=== PATIENT | male | born 2000 | race Caucasian/White ===

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

== ENCOUNTER 2019-02-01 12:04 | Emergency (ER) | payer SELFPAY ==
[2019-02-01 12:52] LABS: Absolute Lymphocytes (CBC) 1.4 K/uL (0.7-4.9); Absolute Monocytes 0.7 K/uL (0.1-1.3); Basophils % 0.1 % (0-1.3); Eosinophils % 0.4 % (0-4.4); Hematocrit 46.2 % (39.6-49.0); Lymphocytes % 11.5 % (15.3-44.8); MPV 8.4 fL (7.6-11.3); Monocytes % 5.8 % (3.3-12.3); RBC Red Blood Cell Count 5.55 M/uL (4.33-5.43)
[2019-02-01] MEDS ORDERED: NA CHLORIDE 0.9% 1,000 ML ONE (12:58)
[2019-02-01] MEDS ORDERED: ONDANSETRON 4 MG/2 ML VIAL ONE ×2 (12:58→14:00)
--- NOTE | 2019-02-01 13:10 | RAD REPORT ---
EXAM DESCRIPTION: RAD - Chest Single View - 02/01/2019 1:03 pm CLINICAL HISTORY: Chest pain COMPARISON: September 2018 TECHNIQUE: AP portable chest image was obtained 1244 hours . FINDINGS: Lungs are clear. Heart and vasculature are normal. No measurable pleural effusion and no p neumothorax. No acute bony abnormality seen. No acute aortic findings suspected. IMPRESSION: No acute cardiopulmonary process. No significant interval change.
[2019-02-01 13:17] LABS: ALT/SGPT 31 U/L (12-78); AST/SGOT 22 U/L (15-37); Albumin 4.5 g/dL (3.4-5.0); Alkaline Phosphatase 77 U/L (45-117); BUN Blood Urea Nitrogen 13 mg/dL (7-18); Bicarbonate 25 mmol/L (21-32); Bilirubin Direct 0.1 mg/dL (0-0.2); Bilirubin Total 0.4 mg/dL (0.2-1.0); Glucose Level 135 mg/dL (74-106); Lipase 167 U/L (73-393); Magnesium 1.9 mg/dL (1.8-2.4); NT PRO-BNP 22 pg/mL (<125); Potassium 3.6 mmol/L (3.5-5.1); Protein, Total 8.5 g/dL (6.4-8.2); Sodium Level 139 mmol/L (136-145); Troponin (Emerg Dept Use Only) < 0.02 ng/mL (0.0-0.045)
[2019-02-01] MEDS ORDERED: MORPHINE 4 MG/ML SYR ONE (13:53)
--- NOTE | 2019-02-01 15:04 | ER ---
Nurse's Notes [facility] Name: Nacho Lopez Age: 18 yrs Sex: Male : 2000 Arrival Date: 02/01/2019 Time: 12:05 Bed 23 Private MD: Diagnosis: Vomiting, unspecified;Upper abdominal pain, unspecified Presentation: 02/01 12:16 Presenting complaint: Patient states: this started happening years ago with everything tw2 i am going through, i am having chest pains that started this morning, i woke up and was having chest pains, i waited to see if they were going to pass, it hurts right in the center of my chest, i have been sweating really badly, i have been going through a lot lately, they try to say its gerd but i dont feel acid, i have been vomiting this time, i havent been eating and am nauseous. Transition of care: patient was not received from another setting of care. Onset of symptoms was February 01, 2019. Risk Assessment: Do you want to hurt yourself or someone else? Patient reports no desire to harm self or others. Initial Sepsis Screen: Does the patient meet any 2 criteria? No. Patient's initial sepsis screen is negative. Does the patient have a suspected source of infection? No. Patient's initial sepsis screen is negative. Care prior to arrival: None. 12:16 Method Of Arrival: Ambulatory tw2 12:16 Acuity: KLAUS 2 tw2 Triage Assessment: 12:18 General: Appears uncomfortable, Behavior is cooperative. Pain: Complains of pain in tw2 chest. Neuro: Cardiovascular: Cardiovascular: pt diaphoretic and pale in triage. GI: Reports nausea, vomiting. Historical: - Allergies: 12:20 NKA; tw2 - Home Meds: 12:20 None [Active]; tw2 - PMHx: 12:20 GERD; tw2 - PSHx: 12:20 None; tw2 - Immunization history:: Adult Immunizations. - Social history:: Smoking status: Patient uses tobacco products, "maybe 5 cigarettes a day". - Ebola Screening: : Patient denies travel to an Ebola-affected area in the 21 days before illness onset. Screenin:24 Abuse screen: Denies threats or abuse. Nutritional screening: No deficits noted. tw2 Tuberculosis screening: No symptoms or risk factors identified. Fall Risk None identified. Assessment: 12:31 General: Appears uncomfortable, Behavior is calm, cooperative, Denies fever, feeling ss ill, fatigue, chills. Pain: Complains of pain in mid-sternal area Pain currently is 9 out of 10 on a pain scale. Quality of pain is described as sharp, stabbing, Pain began "THIS MORNING" Pt reports however that symptoms have been ongoing for 3 years and has not followed up with GI as directed from previous ER visits. Is intermittent, Aggravated by eating. Neuro: Level of Consciousness is awake, alert, obeys commands, Oriented to person, place, time, situation, Speech is normal, Facial symmetry appears normal. Cardiovascular: Capillary refill < 3 seconds is brisk in bilateral fingers Patient's skin is warm and dry. Respiratory: Airway is patent Trachea midline Respiratory effort is even, unlabored, Respiratory pattern is regular, symmetrical, Denies cough, shortness of breath pain with respiration, pain with cough, pain with movement. GI: Reports nausea, vomiting, Patient currently denies constipation, diarrhea. GI: Abdomen is non-distended, Bowel sounds present X 4 quads. Abd is soft X 4 quads. : No signs and/or symptoms were reported regarding the genitourinary system. Denies burning with urination. EENT: Nares are clear Oral mucosa is moist. Throat. Derm: Skin is intact, is healthy with good turgor, Skin is dry, Skin is pink, warm \\T\\ dry. normal. Musculoskeletal: Circulation, motion, and sensation intact. Range of motion: intact in all extremities, Swelling absent. Vital Signs: 12:19 BP 158 / 102; Pulse 57; Resp 18; Temp 97.5(O); Pulse Ox 100% on R/A; Weight 129.27 kg tw2 (R); Height 6 ft. 3 in. (190.50 cm); Pain 10/10; 13:44 BP 157 / 104; Pulse 58; Resp 18; Pulse Ox 100% ; rv 14:00 BP 144 / 84; Pulse 60; Resp 24; Pulse Ox 100% ; rv 14:00 Temp 97.9(O); Pain 8/10; rv 15:30 BP 130 / 85; Pulse 59; Resp 15; Temp 98; Pulse Ox 100% ; rv 12:19 Body Mass Index 35.62 (129.27 kg, 190.50 cm) tw2 ED Course: 12:05 Patient arrived in ED. rg4 12:18 Triage completed. tw2 12:19 Arm band placed on. EKG completed in triage. Results shown to MD. tw2 12:24 Bed in low position. Call light in reach. security monitor on. Warm blanket given. tw2 12:28 [facility]C [facility] kb 12:28 Augustine Zarate MD is Attending Physician. kb 12:31 Elizabeth Minor, MICKY is Primary Nurse. ss 12:31 Inserted saline lock: 20 gauge in right antecubital area, using aseptic technique. ss Blood collected. Patient maintains SpO2 saturation greater than 95% on room air. 12:38 EKG done, by technology manager. reviewed by Augustine Zarate MD. at1 13:03 XRAY Chest (1 view) In Process Unspecified. EDMS 15:31 No provider procedures requiring assistance completed. IV discontinued, intact, rv bleeding controlled, No redness/swelling at site. Pressure dressing applied. Administered Medications: 12:49 Drug: NS 0.9% 1000 ml Route: IV; Rate: 1000 ml; Site: right antecubital; ss 15:31 Follow up: IV Status: Completed infusion; IV Intake: 1000ml rv 12:49 Drug: Zofran 4 mg Route: IVP; Site: right antecubital; ss 15:31 Follow up: Response: No adverse reaction rv 13:45 Drug: morphine 4 mg Route: IVP; Site: right antecubital; rv 15:30 Follow up: Response: No adverse reaction rv Intake: 15:31 IV: 1000ml; Total: 1000ml. rv Outcome: 15:03 Discharge ordered by . kb 15:32 Discharged to home ambulatory. rv 15:32 Condition: good 15:32 Discharge instructions given to patient, Instructed on discharge instructions, follow up and referral plans. medication usage, Demonstrated understanding of instructions, follow-up care, medications, Prescriptions given X 3. 15:32 Patient left the ED. rv Signatures: Dispatcher [employer] EDMS Theresa Gu FNP-C FNP-Elizabeth [place], MICKY RN ss Shivani Jones, bulk tank driver EKG Tat1 Ekaterina Light RN RN tw2 Gwendolyn Valdovinos rg4 Ray Fay, RN RN rv
--- NOTE | 2019-02-01 15:05 | EDPHYS ---
Physician Documentation [facility] Name: Nacho Lopez Age: 18 yrs Sex: Male : 2000 Arrival Date: 02/01/2019 Time: 12:05 Bed 23 Private MD: ED Physician Augustine Zarate HPI: 02/01 15:30 This 18 yrs old Male presents to ER via Ambulatory with complaints of kb Vomiting, Chest Pain, Shortness Of Breath. 15:30 The patient presents to the emergency department with nausea, vomiting. kb 16:08 Onset: The symptoms/episode began/occurred this morning. Possible causes: unknown. The kb symptoms are aggravated by nothing. The symptoms are alleviated by nothing. Associated signs and symptoms: Pertinent positives: abdominal pain, diarrhea, hematuria, vomiting. Severity of symptoms: At their worst the symptoms were moderate in the emergency department the symptoms are unchanged. The patient has experienced similar episodes in the past, multiple times. The patient has not recently seen a physician. Pt reports he has had n/v and upper abd pain that started this morning. States he has had this pain intermittently for 3 years. Historical: - Allergies: 12:20 NKA; tw2 - Home Meds: 12:20 None [Active]; tw2 - PMHx: 12:20 GERD; tw2 - PSHx: 12:20 None; tw2 - Immunization history:: Adult Immunizations. - Social history:: Smoking status: Patient uses tobacco products, "maybe 5 cigarettes a day". - Ebola Screening: : Patient denies travel to an Ebola-affected area in the 21 days before illness onset. ROS: 16:09 Constitutional: Negative for fever, chills, and weight loss, Neck: Negative for injury, kb pain, and swelling, Cardiovascular: Negative for chest pain, palpitations, and edema, Respiratory: Negative for shortness of breath, cough, wheezing, and pleuritic chest pain, Back: Negative for injury and pain, : Negative for injury, bleeding, discharge, and swelling, MS/Extremity: Negative for injury and deformity, Skin: Negative for injury, rash, and discoloration, Neuro: Negative for headache, weakness, numbness, tingling, and seizure. 16:09 Abdomen/GI: Positive for abdominal pain, nausea and vomiting. Exam: 16:09 Constitutional: This is a well developed, well nourished patient who is awake, alert, kb and in no acute distress. Head/Face: Normocephalic, atraumatic. Chest/axilla: Normal chest wall appearance and motion. Nontender with no deformity. No lesions are appreciated. Cardiovascular: Regular rate and rhythm with a normal S1 and S2. No gallops, murmurs, or rubs. Normal PMI, no JVD. No pulse deficits. Respiratory: Lungs have equal breath sounds bilaterally, clear to auscultation and percussion. No rales, rhonchi or wheezes noted. No increased work of breathing, no retractions or nasal flaring. Abdomen/GI: Soft, non-tender, with normal bowel sounds. No distension or tympany. No guarding or rebound. No evidence of tenderness throughout. Skin: Warm, dry with normal turgor. Normal color with no rashes, no lesions, and no evidence of cellulitis. MS/ Extremity: Pulses equal, no cyanosis. Neurovascular intact. Full, normal range of motion. Neuro: Awake and alert, GCS 15, oriented to person, place, time, and situation. Cranial nerves II-XII grossly intact. Motor strength 5/5 in all extremities. Sensory grossly intact. Cerebellar exam normal. Normal gait. Vital Signs: 12:19 BP 158 / 102; Pulse 57; Resp 18; Temp 97.5(O); Pulse Ox 100% on R/A; Weight 129.27 kg tw2 (R); Height 6 ft. 3 in. (190.50 cm); Pain 10/10; 13:44 BP 157 / 104; Pulse 58; Resp 18; Pulse Ox 100% ; rv 14:00 BP 144 / 84; Pulse 60; Resp 24; Pulse Ox 100% ; rv 14:00 Temp 97.9(O); Pain 8/10; rv 15:30 BP 130 / 85; Pulse 59; Resp 15; Temp 98; Pulse Ox 100% ; rv 12:19 Body Mass Index 35.62 (129.27 kg, 190.50 cm) tw2 MDM: 12:28 Patient medically screened. kb 15:02 Data reviewed: vital signs, nurses notes. Data interpreted: Pulse oximetry: on room air kb is 100 %. Interpretation: normal. Counseling: I had a detailed discussion with the patient and/or guardian regarding: the historical points, exam findings, and any diagnostic results supporting the discharge/admit diagnosis, lab results, the need for outpatient follow up, a family practitioner, to return to the emergency department if symptoms worsen or persist or if there are any questions or concerns that arise at home. 02/01 12:34 Order name: Basic Metabolic Panel; Complete Time: 13:18 kb 02/01 12:34 Order name: CBC with Diff; Complete Time: 13:04 kb 02/01 12:34 Order name: LFT's; Complete Time: 13:18 kb 02/01 12:34 Order name: Magnesium; Complete Time: 13:18 kb 02/01 12:34 Order name: NT PRO-BNP; Complete Time: 13:18 kb 02/01 12:34 Order name: Troponin (emerg Dept Use Only); Complete Time: 13:18 kb 02/01 12:34 Order name: XRAY Chest (1 view); Complete Time: 13:13 kb 02/01 12:34 Order name: EKG; Complete Time: 12:36 kb 02/01 12:34 Order name: Cardiac monitoring; Complete Time: 12:35 kb 02/01 12:34 Order name: EKG - Nurse/Tech; Complete Time: 12:35 kb 02/01 12:34 Order name: Lipase; Complete Time: 13:18 kb 02/01 12:34 Order name: IV Saline Lock; Complete Time: 12:35 kb 02/01 12:34 Order name: Labs collected and sent; Complete Time: 12:35 kb 02/01 12:34 Order name: O2 Per Protocol; Complete Time: 12:35 kb 02/01 12:34 Order name: O2 Sat Monitoring; Complete Time: 12:36 kb Administered Medications: 12:49 Drug: NS 0.9% 1000 ml Route: IV; Rate: 1000 ml; Site: right antecubital; ss 15:31 Follow up: IV Status: Completed infusion; IV Intake: 1000ml rv 12:49 Drug: Zofran 4 mg Route: IVP; Site: right antecubital; ss 15:31 Follow up: Response: No adverse reaction rv 13:45 Drug: morphine 4 mg Route: IVP; Site: right antecubital; rv 15:30 Follow up: Response: No adverse reaction rv Disposition: 02/02 09:14 Co-signature as Attending Physician, Augustine Zarate MD I agree with the assessment and kdr plan of care. Disposition: 02/01/19 15:03 Discharged to Home. Impression: Vomiting, unspecified, Upper abdominal pain, unspecified. - Condition is Stable. - Discharge Instructions: Gastroesophageal Reflux Disease, Adult, Nausea and Vomiting, Adult, [id number], Abdominal Pain, Adult, [id number]. - Prescriptions for Bentyl 20 mg Oral Tablet - take 1 tablet by ORAL route every 6 hours As needed; 20 tablet. Zofran 4 mg Oral Tablet - take 1 tablet by ORAL route every 6 hours As needed; 20 tablet. Pepcid 20 mg Oral Tablet - take 1 tablet by ORAL route once daily; 20 tablet. - Medication Reconciliation Form, Thank You Letter, Antibiotic Education, Prescription Opioid Use, Work release form form. - Follow up: Emergency Department; When: As needed; Reason: Worsening of condition. Follow up: Private Physician; When: 2 - 3 days; Reason: Recheck today's complaints, Continuance of care, Re-evaluation by your physician. Signatures: Dispatcher [employer] EDMS Theresa Gu, AUDITOR IN CHARGE-C AUDITOR IN CHARGE-CkAugustine Tucker MD MD [facility] Elizabeth Minor RN RN ss Ekaterina Light RN RN tw2 Ray Fay, RN RN rv Corrections: (The following items were deleted from the chart) 02/01 15:32 15:03 02/01/2019 15:03 Discharged to Home. Impression: Vomiting, unspecified; Upper rv abdominal pain, unspecified. Condition is Stable. Forms are Medication Reconciliation Form, Thank You Letter, Antibiotic Education, Prescription Opioid Use. Follow up: Emergency Department; When: As needed; Reason: Worsening of condition. Follow up: Private Physician; When: 2 - 3 days; Reason: Recheck today's complaints, Continuance of care, Re-evaluation by your physician. kb
--- NOTE | 2019-02-01 16:30 | EKG ---
Test Date: 2019-02-01 Test Time: 12:19:00 Assembly Line Machine Operator: MIGDALIA MEASUREMENT RESULTS: Intervals: Rate: 59 ME: 176 QRSD: 96 QT: 424 QTc: 419 [place]: P: 77 ME: 176 QRS: 45 T: 7 INTERPRETIVE STATEMENTS: Sinus bradycardia Otherwise normal ECG Compared to ECG 09/27/2018 12:35:58 Sinus rhythm no longer present Sinus arrhythmia no longer present T-wave abnormality no longer present Possible ischemia no longer present Electronically Signed On 02-01-19 16:29:19 CDT by Jeremiah Villalba
== END 2019-02-01 15:32 | disposition home or self-care (01) ==
LOC: ER 12:04
DX: R10.10 Upper abdominal pain, unspecified (principal); Z72.0 Tobacco use
CPT/HCPCS: 36415; 71045; 80048; 80076; 83690; 83735; 83880; 84484; 85025; 93005; 96361; 96374; 96375; 99285; J2405; J7030

== ENCOUNTER 2019-06-07 16:14 | Emergency (ER) | payer SELFPAY ==
[2019-06-07] MEDS ORDERED: IBUPROFEN 400 MG TAB ONE (17:16)
[2019-06-07] MEDS ORDERED: MAGNE/ALUM HYDROXD 30 ML UCUP ONE (17:16)
[2019-06-07] MEDS ORDERED: IBUPROFEN 200 MG TAB PO ONE (17:16)
[2019-06-07] MEDS ORDERED: LIDOCAINE VISCOUS 2% SOLN 15 ML UDC ONE (17:17)
[2019-06-07] MEDS ORDERED: TRAMADOL HCL 50 MG TAB ONE (19:04)
--- NOTE | 2019-06-07 20:15 | ER ---
Nurse's Notes [facility] Name: Nacho Lopez Age: 18 yrs Sex: Male : 2000 Arrival Date: 06/07/2019 Time: 16:15 Bed 6 Private MD: Diagnosis: Acute tonsillitis Presentation: 06/07 16:31 Presenting complaint: Patient states: sore throat, chills, body aches that began 2 days aa5 ago. Pt reports vomiting twice today. Pt also c/o chest pain. Pt reports hx of chest pain for 2 years and he takes Nitro. Reports taking Nitro today at 1600. 16:31 Transition of care: patient was not received from another setting of care. Onset of aa5 symptoms was May 2019. Risk Assessment: Do you want to hurt yourself or someone else? Patient reports no desire to harm self or others. Care prior to arrival: None. 16:31 Acuity: KLAUS 3 aa5 16:31 Method Of Arrival: Ambulatory aa5 19:20 Initial Sepsis Screen: Does the patient meet any 2 criteria? No. Patient's initial aj1 sepsis screen is negative. Does the patient have a suspected source of infection? No. Patient's initial sepsis screen is negative. Historical: - Allergies: 16:31 NKA; aa5 - PMHx: 16:31 GERD; aa5 - PSHx: 16:31 None; aa5 - Immunization history:: Adult Immunizations up to date. - Ebola Screening: : No symptoms or risks identified at this time. - Social history:: Smoking status: Patient/guardian denies using tobacco. Screenin:05 Abuse screen: Denies threats or abuse. Denies injuries from another. Nutritional aj1 screening: No deficits noted. Tuberculosis screening: No symptoms or risk factors identified. 19:20 Fall Risk None identified. aj1 Assessment: 17:05 General: Appears in no apparent distress. uncomfortable, Behavior is anxious. Pain: aj1 Complains of pain in chest, left aspect of posterior pharynx and right aspect of posterior pharynx Pain does not radiate. Neuro: Level of Consciousness is awake, alert, obeys commands, Oriented to person, place, time, situation. Cardiovascular: Patient's skin is warm and dry. Cardiovascular: Reports chest pain, Heart tones S1 S2 present. Respiratory: Airway is patent Respiratory effort is even, unlabored, Respiratory pattern is regular, symmetrical, Breath sounds are clear bilaterally. GI: Abdomen is non-distended, Abd is soft X 4 quads Reports nausea, vomiting. : No signs and/or symptoms were reported regarding the genitourinary system. EENT: Reports sore throat. Derm: No signs and/or symptoms reported regarding the dermatologic system. Skin is pink, warm \T\ dry. normal. Musculoskeletal: No signs and/or symptoms reported regarding the musculoskeletal system. Circulation, motion, and sensation intact. 18:10 Reassessment: Patient appears in no apparent distress at this time. No changes from aj1 previously documented assessment. Patient and/or family updated on plan of care and expected duration. Pain level reassessed. Patient is alert, oriented x 3, equal unlabored respirations, skin warm/dry/pink. 19:30 Reassessment: Patient appears in no apparent distress at this time. Patient and/or ch family updated on plan of care and expected duration. Pain level reassessed. Patient is alert, oriented x 3, equal unlabored respirations, skin warm/dry/pink. Patient states symptoms have not improved. pt is resting quietly in room, no s/s of distress. pt was medicated per orders. pt appears comfortable. . 20:27 Reassessment: Patient appears in no apparent distress at this time. Patient is alert, aa1 oriented x 3, equal unlabored respirations, skin warm/dry/pink. Discussed d/c \T\ f/u instructions with pt; denies questions or concerns at this time Patient states symptoms have improved. Vital Signs: 16:32 BP 169 / 95; Pulse 91; Resp 18 S; Temp 98.8(O); Pulse Ox 100% on R/A; Weight 127.01 kg aa5 (R); Height 6 ft. 2 in. (187.96 cm) (R); Pain 5/10; 17:30 BP 170 / 81; Pulse 87; Resp 18; Pulse Ox 98% on R/A; aj1 19:24 BP 146 / 80; Pulse 82; Resp 18; Temp 97.9; Pulse Ox 100% on R/A; aa1 20:27 BP 150 / 71; Pulse 79; Resp 18; Temp 98.0; Pulse Ox 99% on R/A; Pain 2/10; aa1 16:32 Body Mass Index 35.95 (127.01 kg, 187.96 cm) aa5 ED Course: 16:15 Patient arrived in ED. as 16:17 Theresa Gu FNP-C is [facility]. kb 16:17 Wander Santillan MD is Attending Physician. kb 16:31 Arm band placed on Patient placed in an exam room, on a stretcher. aa5 16:43 Nikki Martin, RN is Primary Nurse. aj1 16:50 Triage completed. aa5 17:05 Patient has correct armband on for positive identification. Bed in low position. Call aj1 light in reach. Side rails up X 1. 17:05 No provider procedures requiring assistance completed. aj1 17:08 EKG done, by gate technician. reviewed by Theresa MCKEON. 3 17:09 Flu and/or RSV swab sent to lab. Strep swab sent to lab. [facility] 18:53 Primary Nurse role handed off by Nikki Martin, MICKY ch 18:53 Colleen Joyner, MICKY is Primary Nurse. ch 19:14 Initial lab(s) drawn, by sd, sent to lab. Inserted saline lock: 20 gauge in right aa1 antecubital area, using aseptic technique. Blood collected. 19:30 No apparent distress. Resting quietly. ch 19:30 Pulse ox on. NIBP on. Warm blanket given. ch 20:27 IV discontinued, intact, bleeding controlled, No redness/swelling at site. Pressure aa1 dressing applied. Administered Medications: 17:15 Drug: Ibuprofen 600 mg Route: PO; aa5 20:07 Follow up: Response: No adverse reaction ch 17:15 Drug: GI Cocktail without - (Maalox Suspension 30 ml, Lidocaine Liquid 2 % 15 aa5 ml) Route: PO; 20:07 Follow up: Response: No adverse reaction ch 19:07 Drug: traMADol 50 mg {Note: RASS 0.} Route: PO; aa1 20:07 Follow up: Response: No adverse reaction ch 20:27 Drug: Augmentin 875 mg Route: PO; aa1 20:27 Follow up: Response: No adverse reaction; Medication administered at discharge. aa1 Outcome: 20:14 Discharge ordered by . kb 20:27 Discharged to home ambulatory, with significant other. aa1 20:27 Condition: good 20:27 Discharge instructions given to patient, significant other, Instructed on discharge instructions, follow up and referral plans. medication usage, Demonstrated understanding of instructions, follow-up care, medications, Prescriptions given X 1. 20:29 Patient left the ED. aa1 Signatures: Theresa Gu, HOSE MAKER-C HOSE MAKER-Ckb Colleen Joyner, RN RN Nikki Fuentes RN RN aj1 Li Kenny RN RN aa1 Mile Bazan Audri, RN RN aa5 Tonya Julio 3 Lis Amato 4
--- NOTE | 2019-06-07 20:16 | EDPHYS ---
Physician Documentation [facility] Name: Nacho Lopez Age: 18 yrs Sex: Male : 2000 Arrival Date: 06/07/2019 Time: 16:15 Bed 6 Private MD: ED Physician Wander Santillan HPI: 06/07 17:13 This 18 yrs old Male presents to ER via Ambulatory with complaints of kb Vomiting, Sore Throat, Pain All Over. 17:13 The patient presents with sore throat. The patient describes throat pain as constant. kb Onset: The symptoms/episode began/occurred 2 day(s) ago. Severity of symptoms: At their worst the symptoms were moderate, in the emergency department the symptoms are unchanged. Modifying factors: The symptoms are alleviated by nothing, the symptoms are aggravated by swallowing, Patient's oral intake status: good. Associated signs and symptoms: Pertinent positives: chest pain, chills, flu-like symptoms, myalgias, nausea, Sore throat vomiting. The patient has not experienced similar symptoms in the past. The patient has not recently seen a physician. Historical: - Allergies: 16:31 NKA; aa5 - PMHx: 16:31 GERD; aa5 - PSHx: 16:31 None; aa5 - Immunization history:: Adult Immunizations up to date. - Ebola Screening: : No symptoms or risks identified at this time. - Social history:: Smoking status: Patient/guardian denies using tobacco. ROS: 17:11 Neck: Negative for injury, pain, and swelling, Cardiovascular: Negative for chest pain, kb palpitations, and edema, Respiratory: Negative for shortness of breath, cough, wheezing, and pleuritic chest pain, Back: Negative for injury and pain, : Negative for injury, bleeding, discharge, and swelling, MS/Extremity: Negative for injury and deformity, Skin: Negative for injury, rash, and discoloration, Neuro: Negative for headache, weakness, numbness, tingling, and seizure. 17:11 Constitutional: Positive for body aches, chills. 17:11 ENT: Positive for sore throat. 17:11 Abdomen/GI: Positive for nausea and vomiting. Exam: 17:11 Constitutional: This is a well developed, well nourished patient who is awake, alert, kb and in no acute distress. Head/Face: Normocephalic, atraumatic. Neck: Trachea midline, no thyromegaly or masses palpated, and no cervical lymphadenopathy. Supple, full range of motion without nuchal rigidity, or vertebral point tenderness. No Meningismus. Chest/axilla: Normal chest wall appearance and motion. Nontender with no deformity. No lesions are appreciated. Cardiovascular: Regular rate and rhythm with a normal S1 and S2. No gallops, murmurs, or rubs. Normal PMI, no JVD. No pulse deficits. Respiratory: Lungs have equal breath sounds bilaterally, clear to auscultation and percussion. No rales, rhonchi or wheezes noted. No increased work of breathing, no retractions or nasal flaring. Abdomen/GI: Soft, non-tender, with normal bowel sounds. No distension or tympany. No guarding or rebound. No evidence of tenderness throughout. Skin: Warm, dry with normal turgor. Normal color with no rashes, no lesions, and no evidence of cellulitis. MS/ Extremity: Pulses equal, no cyanosis. Neurovascular intact. Full, normal range of motion. Neuro: Awake and alert, GCS 15, oriented to person, place, time, and situation. Cranial nerves II-XII grossly intact. Motor strength 5/5 in all extremities. Sensory grossly intact. Cerebellar exam normal. Normal gait. 17:11 ENT: External ear(s): are unremarkable, Ear canal(s): are normal, TM's: are normal, Nose: is normal, Mouth: is normal, Posterior pharynx: Airway: no evidence of obstruction, patent, Tonsils: bilaterally enlarged, with erythema, Uvula: normal, midline, swelling, that is moderate, erythema, that is moderate, exudate, that is mild. Vital Signs: 16:32 BP 169 / 95; Pulse 91; Resp 18 S; Temp 98.8(O); Pulse Ox 100% on R/A; Weight 127.01 kg aa5 (R); Height 6 ft. 2 in. (187.96 cm) (R); Pain 5/10; 17:30 BP 170 / 81; Pulse 87; Resp 18; Pulse Ox 98% on R/A; aj1 19:24 BP 146 / 80; Pulse 82; Resp 18; Temp 97.9; Pulse Ox 100% on R/A; aa1 20:27 BP 150 / 71; Pulse 79; Resp 18; Temp 98.0; Pulse Ox 99% on R/A; Pain 2/10; aa1 16:32 Body Mass Index 35.95 (127.01 kg, 187.96 cm) aa5 MDM: 16:40 Patient medically screened. kb 17:10 Data reviewed: vital signs, nurses notes. Data interpreted: Pulse oximetry: on room air kb is 100 %. Interpretation: normal. Counseling: I had a detailed discussion with the patient and/or guardian regarding: the historical points, exam findings, and any diagnostic results supporting the discharge/admit diagnosis, lab results, the need for outpatient follow up, a family practitioner, to return to the emergency department if symptoms worsen or persist or if there are any questions or concerns that arise at home. 06/07 16:19 Order name: Flu; Complete Time: 17:28 kb 06/07 16:19 Order name: Strep; Complete Time: 18:25 kb 06/07 18:18 Order name: [place] Screen Profile; Complete Time: 20:14 kb 06/07 18:28 Order name: Throat Culture EDID 06/07 16:48 Order name: EKG; Complete Time: 16:49 kb 06/07 16:48 Order name: EKG - Nurse/Tech; Complete Time: 17:09 kb Administered Medications: 17:15 Drug: Ibuprofen 600 mg Route: PO; aa5 20:07 Follow up: Response: No adverse reaction ch 17:15 Drug: GI Cocktail without - (Maalox Suspension 30 ml, Lidocaine Liquid 2 % 15 aa5 ml) Route: PO; 20:07 Follow up: Response: No adverse reaction ch 19:07 Drug: traMADol 50 mg {Note: RASS 0.} Route: PO; aa1 20:07 Follow up: Response: No adverse reaction ch 20:27 Drug: Augmentin 875 mg Route: PO; aa1 20:27 Follow up: Response: No adverse reaction; Medication administered at discharge. aa1 Disposition: 06/07/19 20:14 Discharged to Home. Impression: Acute tonsillitis. - Condition is Stable. - Discharge Instructions: Tonsillitis, [id number]. - Prescriptions for Augmentin 875- 125 mg Oral Tablet - take 1 tablet by ORAL route every 12 hours for 10 days; 20 tablet. - Medication Reconciliation Form, Thank You Letter, Antibiotic Education, Prescription Opioid Use form. - Work release form (06/07/19 20:29). aa1 - Follow up: Emergency Department; When: As needed; Reason: Worsening of condition. Follow up: Private Physician; When: 2 - 3 days; Reason: Recheck today's complaints, Continuance of care, Re-evaluation by your physician. Addendum: 06/12/2019 14:45 Co-signature as Attending Physician, Wander Santillan MD. g s Signatures: Dispatcher [employer] EDMS Theresa Gu, METEOROLOGICAL OBSERVER-C METEOROLOGICAL OBSERVER-Ckb Colleen Joyner, RN RN Li Kenny RN RN aa1 Kesha Rossi RN RN aa5 Wander Santillan MD MD Corrections: (The following items were deleted from the chart) 06/07 20:29 20:14 06/07/2019 20:14 Discharged to Home. Impression: Acute tonsillitis. Condition is aa1 Stable. Forms are Medication Reconciliation Form, Thank You Letter, Antibiotic Education, Prescription Opioid Use. Follow up: Emergency Department; When: As needed; Reason: Worsening of condition. Follow up: Private Physician; When: 2 - 3 days; Reason: Recheck today's complaints, Continuance of care, Re-evaluation by your physician. kb
[2019-06-07] MEDS ORDERED: AMOX/K CLAV 875 MG TAB ONE (20:23)
[2019-06-07 23:12] VITALS: BP 150/71; TEMP 98; O2SAT 99
--- NOTE | 2019-06-08 08:39 | EKG ---
Test Date: 2019-06-07 Test Time: 17:05:33 Geophysical Laboratory Supervisor: DEANA MEASUREMENT RESULTS: Intervals: Rate: 88 DE: 154 QRSD: 98 QT: 334 QTc: 404 [place]: P: 69 DE: 154 QRS: 75 T: -3 INTERPRETIVE STATEMENTS: Normal sinus rhythm Non specific T wave abnormality Abnormal ECG Compared to ECG 02/01/2019 12:19:00 T-wave abnormality now present Sinus bradycardia no longer present Electronically Signed On 06-08-19 08:38:51 CDT by Jeremiah Villalba
== END 2019-06-07 20:29 | disposition home or self-care (01) ==
LOC: ER 16:14
DX: J03.90 Acute tonsillitis, unspecified (principal)
CPT/HCPCS: 36415; 86308; 87070; 87081; 87804; 93005; 99284

== ENCOUNTER 2019-06-11 09:34 | Emergency (ER) | payer SELFPAY ==
--- NOTE | 2019-06-11 15:38 | ER ---
Nurse's Notes [facility] Name: Nacho Lopez Age: 18 yrs Sex: Male : 2000 Arrival Date: 06/11/2019 Time: 09:38 Bed External Waiting Private MD: Diagnosis: ED Course: 06/11 09:38 Patient arrived in ED. as 09:55 Patient's name was called from ER lobby. No response. Unable to locate patient. Will la1 disposition as left without being seen by a provider. Administered Medications: No medications were administered Outcome: :55 Eloped from waiting room. iw 09:55 Condition: good 15:36 Patient left the ED. iw Signatures: Mile Bazan Irene, RN RN iw Yazan Monroy RN RN la1 Corrections: (The following items were deleted from the chart) 10:15 09:50 Eloped from waiting room, iw iw 10:15 09:50 Condition: good iw iw
== END 2019-06-11 15:36 | disposition left against medical advice (07) ==
LOC: ER 09:34
DX: Z02.9 Encounter for administrative examinations, unspecified (principal); Z53.21 Procedure and treatment not carried out due to patient leaving prior to being seen by health care provider

== ENCOUNTER 2020-01-11 09:56 | Emergency (ER) | payer SELFPAY ==
--- OUTSIDE RECORDS SUMMARY | 2020-01-11 09:59 | XMS REPORT | Summary of Care ---
:2000 Author Organization [facility] - [facility] Address [address] [place] [id number] Care Team Providers Name Role Phone Pcp, Does Not Have A Primary Care Provider Reason for Referral Radiology Services (STAT) Status Reason Specialty Diagnoses / Referred By Referred To Procedures Contact Contact New Request Diagnostic Diagnoses Chest pain, unspecified type Sukumar Kumar, Radiology Procedures XR CHEST 1 VW COVID XR CHEST 1 VW 301 [facility] [id number] [place] [address] Reason for Visit Reason Comments Vomiting Auth/Cert Status Reason Specialty Diagnoses / Referred By Referred To Procedures Contact Contact Emergency Medicine [facility] ergency Dept [address] [place] [address] [place] [address] Fax: Encounter Details Date Type Department Care Team Description 12/31/2019 Emergency ADC-Emergency Sukumar Kumar, Chest pain, unspecified type (Primary Dx); Department Gastritis without bleeding, unspecified chronicity, unspecified gastritis type; [address] [place] [address] 301 [facility] Gastroesophageal reflux dise [place]se [place] [address] [id number] [place], [place] [id number] Allergies No Known Allergiesdocumented as of this encounter (statuses as of 12/31/2019) Medications Medication Sig Dispensed Refills Start Date End Date Status Pantoprazole (PROTONIX) Take 40 mg by 30 mg 0 11/11/2017 Active 40 mg delayed-release mouth daily. suspension sucralfate 1 gram tablet Take 1 tablet 30 tablet 0 11/11/2017 Active by mouth before meals and at bedtime. ibuprofen (MOTRIN IB) 200 Take 2 tablets 30 tablet 0 8 Active mg tablet by mouth every 6 (six) hours as needed for Pain (scale 1-3) for up to 30 doses. acetaminophen (TYLENOL Take 1 tablet 20 tablet 0 11/17/2017 Active EXTRA STRENGTH) 500 mg by mouth every tablet 6 (six) hours as needed for Pain for up to 20 doses. ondansetron 4 mg Take 1 tablet 10 tablet 0 11/17/2017 Active disintegrating tablet by mouth every 8 (eight) hours as needed for Nausea and Vomiting (N/V) for up to 10 doses. amoxicillin-clavulanate Take 1 tablet 10 tablet 0 12/22/2017 Active (AUGMENTIN) 875-125 mg by mouth 2 per tablet (two) times daily. nitroglycerin 0.[address] 1 tablet 1 Bottle 0 02/04/2019 Active sublingual under the tabletIndications: Chest tongue every 5 pain, unspecified type, (five) minutes Nonspecific abnormal as needed for electrocardiogram (ECG) Chest pain. (EKG), Hypertension, unspecified type lisinopril 10 mg Take 1 tablet 14 tablet 0 02/04/2019 Active tabletIndications: Chest by mouth at pain, unspecified type, bedtime. Nonspecific abnormal electrocardiogram (ECG) (EKG), Hypertension, unspecified type acetaminophen-codeine Take 1 tablet 20 tablet 0 02/04/2019 Active (TYLENOL-CODEINE #3) by mouth every 300-30 mg 4 (four) hours tabletIndications: Chest as needed for pain, unspecified type, Pain (scale Nonspecific abnormal 7-10). electrocardiogram (ECG) (EKG), Hypertension, unspecified type documented as of this encounter (statuses as of 12/31/2019) Active Problems No known active problemsdocumented as of this encounter (statuses as of 12/31/2019) Immunizations Name Administration Dates Next Due DTAP 11/05/2003, 01/07/2001, 04/14/2000, 02/10/2000, 1999 HEPATITIS A 03/21/2013, 06/02/2011 HIB 4 Dose Schedule 01/07/2001, 05/12/2000, 02/10/2000, 1999 HPV 03/21/2013, 05/24/2012, 06/02/2011 Hep B, Adol or Pedi Dosage 10/20/2000, 04/24/2000, 0 Influenza Virus Vaccine 12/06/2009 MMR 11/05/2003, 11/09/2000 Meningococcal Polysaccharide (groups 03/04/2017, 06/02/2011 A, C, Y and W-135) conjugate vaccine (MCV4P) Pneumococcal 13 Conjugate, PCV13 01/07/2001 (Prevnar 13) Polio (IPV/OPV) 11/05/2003, 07/08/2000, 02/10/2000, 1999 TDAP (ADACEL) VACCINE 06/02/2011 Varicella (varivax)(chicken pox) 06/02/2011, 11/09/2000 documented as of this encounter Social History Tobacco Use Types Packs/Day Years Used Date Never Smoker Smokeless Tobacco: Never Used Sex Assigned at Date Recorded Not on file Job Start Date Occupation Industry Not on file Not on file Not on file Travel History Travel Start Travel End No recent travel history available. documented as of this encounter Last Filed Vital Signs Vital Sign Reading Time Taken Comments Blood Pressure 151/99 12/31/2019 2:00 AM CDT Pulse 67 12/31/2019 2:00 AM CDT Temperature - - Respiratory Rate 20 12/31/2019 12:47 AM CDT Oxygen Saturation 100% 12/31/2019 2:00 AM CDT Inhaled Oxygen Concentration - - Weight 124.7 kg (275 lb) 12/31/2019 12:47 AM CDT Height 188 cm (6' 2") 12/31/2019 12:47 AM CDT Body Mass Index 35.31 12/31/2019 12:47 AM CDT documented in this encounter Discharge Instructions Sukumar Ospina MD - 12/31/2019 DIAGNOSIS Diagnoses that have been ruled out: None Diagnoses that are still under consideration: None Final diagnoses: Chest pain, unspecified type Gastritis without bleeding, unspecified chronicity, unspecified gastritis type Gastroesophageal reflux disease without esophagitis NO LIFE-THREATENING FINDINGS ON TODAY'S EXAM. PROCEDURES IN THE ER TODAY: Orders Placed This Encounter Procedures XR CHEST 1 VW COVID CBC WITH DIFF BASIC METABOLIC PANEL (NA, K, CL, CO2, GLUCOSE, BUN, CREATININE, CA) TROPONIN I CBC WITH DIFFERENTIAL LIPASE CORONAVIRUS COVID-19 TESTING MEDICATIONS ADMINISTERED IN THE ER TODAY: Orders Placed This Encounter Medications metoclopramide HCl (REGLAN) injection 10 mg maalox:diphenhydrAMINE:lidocaine 2 % viscous 1:1:1 (FIRST-MOUTHWASH BLM) oral suspension 15 mL FENTanyl PF (SUBLIMAZE (PF)) injection 50 mcg YOUR PRESCRIPTIONS AND [id number] MEDICATION RECOMMENDATIONS: Continue home medications SPECIAL CARE INSTRUCTIONS: Follow up with PCP Return to the ED if worsening of symptoms. FOLLOW-UP RECOMMENDATIONS: RECOMMEND FOLLOW-UP WITH A PRIMARY CARE PROVIDER OR SPECIALIST IN 2-5 DAYS, ESPECIALLY IF NO IMPROVEMENT IN SYMPTOMS. TO FOLLOW-UP WITHIN THE [facility], TRY THESE OPTIONS (CLINIC APPOINTMENTS AVAILABLE ON [id number] BASIS): 1. SCHEDULE AN APPOINTMENT ONLINE AT WWW[facility] 2. OR CALL THE [facility] ACCESS CENTER AT OR 3. OR CALL YOUR [facility] PHYSICIAN'S OFFICE DIRECTLY IF YOU ARE ALREADY AN ESTABLISHED [facility] PATIENT. OR, YOU MAY FOLLOW-UP WITH A PROVIDER OF YOUR CHOICE, SUCH : 1. A PHYSICIAN OF YOUR CHOICE 2. [facility], . LOCATIONS IN [facility] 3. [facility], [address] [place] [address]; [phone] RETURN TO ER FOR WORSENING OF SYMPTOMS. AttachmentsThe following attachments cannot be sent through Care Everywhere.Acid Reflux, Medicines for (Bermudian)Chest Pain, Noncardiac (Bermudian)documented in this encounter Plan of Treatment Name Type Priority Associated Diagnoses Date/Ti me XR CHEST 1 VW COVID IMAGING STAT Chest pain, unspecifi ed 12/31/2019 1:28 AM CDT type Health Maintenance Due Date Last Done Comments MENINGOCOCCAL B VACCINES (1 2009 of 2 - Risk Bexsero 2-dose series) WELL CARE VISIT: 12-21 YEARS 03/04/2018 03/04/2017 (yearly) INFLUENZA VACCINE (#1) 2019 12/06/2009 DTaP,Tdap,and Td Vaccines (7 06/02/2021 06/02/2011, 004, - Td) 01/07/2001, Additional history exists PNEUMOCOCCAL 0-64 YEARS Aged Out 01/07/2001 No longe r eligible COMBINED SERIES based on patient 's age to complete this topic VARICELLA VACCINES Completed 06/02/2011, 11/09/2000 HPV VACCINES Completed 03/21/2013, 05/24/2012, 06/02/2011 MENINGOCOCCAL VACCINE Completed 03/04/2017, 06/02/2011 documented as of this encounter Procedures Procedure Name Priority Date/Time Associated Diagnosis Comme nts EKG-12 LEAD Routine 12/31/2019 2:09 AM CDT XR CHEST 1 VW COVID STAT 12/31/2019 1:28 AM CDT Chest pain , unspecified type Procedure Note - [facility], Radia nt Results Inft User - 12/31/2019 1:50 AM CDT PROCEDURE: CHEST X-RAY one view, CLINICAL INDICATION: chest p ain COMPARISON: 02/04/2019 FINDINGS: Lungs: The lungs are clear. There is no focal consolidation. Pleura: No pleural effusion or pneumothorax is seen. The heart is normal in size. No acute bony abnormality. IMPRESSION 1. No acute intrathoracic ab normality, specifically no detectable radiographic findings to sug gest COVID-19 pneumonia. Disclaimer: Generally, the f indings on chest imaging in COVID-19 are not specific, and overlap with o ther infections, including influenza, H1N1, SARS and MERS. According to the Centers for Disease Control (CDC) and the [employer], viral testing remains the only specific method of diagnosis even if CXR or CT findings a re suggestive of COVID-19. Preliminary Report Dictated by Resident: Haris Fuentes CORONAVIRUS COVID-19 STAT 12/31/2019 1:02 AM Chest pain, Results for this TESTING CDT unspecified type procedure a re in the results section. CBC WITH DIFFERENTIAL STAT 12/31/2019 1:01 AM Chest pain, Results for this CDT unspecified type procedure a re in the results section. CBC WITH DIFFERENTIAL STAT 12/31/2019 1:01 AM Chest pain, Results for this CDT unspecified type procedure a re in the results section. BASIC METABOLIC PANEL STAT 12/31/2019 1:01 AM Chest pain, Results for this (NA, K, CL, CO2, CDT unspecified type procedu re are in GLUCOSE, BUN, the results CREATININE, CA) section. TROPONIN I STAT 12/31/2019 1:01 AM Chest pain, Results for this CDT unspecified type procedure a re in the results section. LIPASE STAT 12/31/2019 1:01 AM Chest pain, Results for this CDT unspecified type procedure a re in the results section. documented in this encounter Results CORONAVIRUS COVID-19 TESTING (12/31/2019 1:02 AM CDT) Pathologist Sig nature SARS-CoV-2 Not Detected Not Detected [facility] Specimen Swab - NASOPHARYNGEAL SWAB Narrative Performed At [facility] COVID-19 Assay is an isothermal nucleic [facility] acid amplification test intended for the qualitative detection of nucleic acid from SARS-CoV-2 viral RNA in nasopharyngeal ([employer]) specimens. It is used under Emergency Use Authorization (EUA) by FDA. The limit of detection (LOD) of the assay is 125 Genome Equivalents/mL. A positive result is indicative of the presence of SARS-CoV-2 RNA. Clinical correlation with patient history and other diagnostic information is necessary to determine patient infection status. A negative (Not Detected) result does not preclude SARS-CoV-2 infection. Clinical correlation with patient history and other diagnostic information should be used in patient management decisions. Invalid: Please collect a new specimen for repeat patient testing if clinically indicated. Performing Organization Address City/[facility]/Zipcode Phone Number [facility] CLIA: [id number], [address] [place] [id number] [address] LIPASE (12/31/2019 1:01 AM CDT) Pathologist Sig nature LIPASE 34 0 - 220 U/L [facility] Specimen Blood - ARM, RIGHT Performing Organization Address [facility]/Zipcode Phone Number [facility] CLIA: [id number], [address] [place] [address] CBC WITH DIFFERENTIAL (12/31/2019 1:01 AM CDT) Pathologist Sig nature WBC 11.71 (H) 4.20 - 10.70 [facility] 10*3/L [facility] RBC 4.94 4.26 - 5.52 [facility] 10*6/L [facility] HGB 13.4 12.2 - 16.4 [facility] g/dL [facility] HCT 40.6 38.4 - 49.3 % [facility] MCV 82.2 81.7 - 95.6 fL [facility] MCH 27.1 26.1 - 32.7 pg [facility] MCHC 33.0 31.2 - 35.0 [facility] g/dL [facility] RDW-SD 39.2 38.5 - 51.6 fL [facility] RDW-CV 13.1 12.1 - 15.4 % [facility] PLT 272 150 - 328 [facility] 10*3/L [facility] MPV 9.6 (L) 9.8 - 13.0 fL [facility] NRBC/100 WBC 0.0 0.0 - 10.0 /100 [facility] WBCs [facility] NRBC x10^3 <0.01 10*3/L [facility] GRAN MAT (NEUT) % 81.6 % [facility] IMM GRAN % 0.50 % [facility] LYMPH % 11.3 % [facility] MONO % 6.0 % [facility] EOS % 0.3 % [facility] BASO % 0.3 % [facility] GRAN MAT x10^3(ANC) 9.56 (H) 1.99 - 6.95 [facility] 10*3/uL [facility] IMM GRAN x10^3 0.06 0.00 - 0.06 [facility] 10*3/uL [facility] LYMPH x10^3 1.32 1.09 - 3.23 [facility] 10*3/uL [facility] MONO x10^3 0.70 0.36 - 1.02 [facility] 10*3/uL [facility] EOS x10^3 0.04 (L) 0.06 - 0.53 [facility] 10*3/uL [facility] BASO x10^3 0.03 0.01 - 0.09 [facility] 10*3/uL [facility] Specimen Blood - VENOUS Performing Organization Address City/State/Zipcode Phone Number [facility] CLIA: [id number], [address] [place], [place] [address] TROPONIN I (12/31/2019 1:01 AM CDT) Pathologist Sig nature TROPONIN I <0.012 <=0.034 ng/mL [facility] Specimen Blood - ARM, RIGHT Narrative Performed At Equal or Less than 0.034 ng/ml---Normal [facility] Note: Cardiac troponin begins to rise 3-4 hours after the onset of ischemia. Repeat in 4-6 hours if the sample was drawn within 3-4 hours of the onset of the symptom and found normal. Between 0.035 and 0.120 ng/mL--- Borderline. Questionable myocardial injury or necros is Note: Serial measurement may be necessary to confirm or exclude the diagnosis of myocardial injury or necrosis; Clinical correlation (symptoms, EKGs, imaging studies, and others) required; Repeat in 4-6 hours if clinically indicated. Equal or Higher than 0.121 ng/mL---Abnormal. Myocardial Injury or Necrosis Likely Biotin has been reported to cause a negative bias, interpret results relative to patient's use of biotin. Performing Organization Address City/State/Zipcode Phone Number [facility] CLIA: [id number], [address] [place] [address] BASIC METABOLIC PANEL (NA, K, CL, CO2, GLUCOSE, BUN, CREATININE, CA) (12/31/2019 1:01 AM CDT) Pathologist [facility] NA 142 135 - 145 [facility] mmol/L [facility] K 3.8 3.5 - 5.0 [facility] mmol/L [facility] CL 103 98 - 108 mmol/L [facility] CO2 TOTAL 29 23 - 31 mmol/L [facility] AGAP 10 2 - 16 [facility] BUN 16 7 - 23 mg/dL [facility] GLUCOSE 135 (H) 70 - 110 mg/dL [facility] CREATININE 0.86 0.60 - 1.25 [facility] mg/dL [facility] CALCIUM 10.2 8.6 - 10.6 [facility] mg/dL [facility] eGFR Calculation 113.4 mL/min/1.73m2 [facility] ([facility] [place] eGFR Calculation 137.4 mL/min/1.73m2 [facility] () [facility] Specimen Blood - ARM, RIGHT Narrative Performed At Association of Glomerular Filtration Rate (GFR) [facility] and Staging of Kidney Disease* + + +- + | GFR (mL/min/1.73 m2) | With Kidney Damage | Without Kidney Damage + + +- + | >90 | Stage one | Normal + + +- + | 60-89 | Stage two | Decreased GFR + + +- + | 30-59 | Stage three | Stage three + + +- + | 15-29 | Stage four | Stage four + + +- + | <15 (or dialysis) | Stage five | Stage five + + +- + *Each stage assumes the associated GFR level has been in effect for at least three months. Stages 1 to 5, with or without kidney disease, indicate chronic kidney disease. Notes: Determination of stages one and two (with eGFR >59mL/min/1.73 m2) requires estimation of kidney damage for at least three months as defined by structural or functional abnormalities of the kidney, manifested by either: Pathological abnormalities or Markers of kidney damage (including abnormalities in the composition of the blood or urine or abnormalities in imaging tests). Performing Organization Address City/State/Zipcode Phone Number [facility] CLIA: [id number], [address] [place] [address] [address] [facility] [address] documented in this encounter Visit Diagnoses Diagnosis Chest pain, unspecified type - Primary Gastritis without bleeding, unspecified chronicity, unspecified gastritis type Gastroesophageal reflux disease without esophagitis Esophageal reflux documented in this encounter Administered Medications Medication Order MAR Action Action Date Dose Rate Site FENTanyl PF (SUBLIMAZE (PF)) Given 12/31/2019 2:39 AM CDT 50 mc g injection 50 mcg 50 mcg, Slow IV Push, ONCE, 1 dose, Tue12/31/19 at 0245, STAT maalox:diphenhydrAMINE:lidocaine 2 % viscous Given 1:03 AM CDT 15 mL 1:1:1 (FIRST-MOUTHWASH BLM) oral suspension 15 mL 15 mL, Oral, ONCE, 1 dose, Tue12/31/19 at 0200, Routine metoclopramide HCl (REGLAN) injection 10 mg Given 12/31/2019 1:03 AM CDT 10 mg 10 mg, Slow IV Push, ONCE, 1 dose, Tue12/31/19 at 0200, YUDITH documented in this encounter
[2020-01-11] MEDS ORDERED: ONDANSETRON 4 MG/2 ML VIAL ONE ×2 (10:37→13:00)
[2020-01-11] MEDS ORDERED: MORPHINE 4 MG/ML SYR ONE (10:37)
[2020-01-11] MEDS ORDERED: NA CHLORIDE 0.9% 1,000 ML ONE ×2 (10:37→12:51)
[2020-01-11] MEDS ORDERED: PANTOPRAZOLE 40 MG INJ ONE (10:37)
[2020-01-11 10:41] LABS: Absolute Lymphocytes (CBC) 1.5 K/uL (0.7-4.9); Basophils % 0.4 % (0-1.3); Hematocrit 48.8 % (39.6-49.0); Lymphocytes % 13.8 % (15.3-44.8); MPV 8.1 fL (7.6-11.3); RBC Red Blood Cell Count 6.07 M/uL (4.33-5.43)
[2020-01-11 11:07] LABS: ALT/SGPT 28 U/L (12-78); AST/SGOT 14 U/L (15-37); Albumin 4.8 g/dL (3.4-5.0); Alkaline Phosphatase 81 U/L (45-117); BUN Blood Urea Nitrogen 18 mg/dL (7-18); Bicarbonate 27 mmol/L (21-32); Bilirubin Direct 0.3 mg/dL (0-0.2); Bilirubin Total 1.1 mg/dL (0.2-1.0); Glucose Level 111 mg/dL (74-106); Lipase 228 U/L (73-393); Magnesium 2.1 mg/dL (1.8-2.4); Potassium 3.4 mmol/L (3.5-5.1); Protein, Total 9.6 g/dL (6.4-8.2); Protime INR 1.18; Sodium Level 132 mmol/L (136-145); Troponin (Emerg Dept Use Only) < 0.02 ng/mL (0.0-0.045)
[2020-01-11 12:31] LABS: Barbiturates NEGATIVE (NEGATIVE); Benzodiazepines POSITIVE (NEGATIVE); Cocaine NEGATIVE (NEGATIVE); METHAMPHETAM NEGATIVE (NEGATIVE); Methadone NEGATIVE (NEGATIVE); Opiates POSITIVE (NEGATIVE); Phencyclidine NEGATIVE (NEGATIVE); THC Cannibis POSITIVE (NEGATIVE)
--- NOTE | 2020-01-11 12:31 | RAD REPORT ---
EXAM DESCRIPTION: US - Abdomen Exam Limited - 01/11/2020 12:07 pm CLINICAL HISTORY: nausea/vomiting COMPARISON: Abdomen Pelvis W Contrast dated 12/27/2016 FINDINGS: Small to moderate amount of sludge is present in the gallbladder lumen. No gallstones coul d be confirmed. There is no wall thickening or pericholecystic fluid. No common duct stone or biliary tree dilatation identified. IMPRESSION: Gallbladder sludge with no gallstones. No wall thickening or acute gallbladder finding o therwise noted. No biliary abnormality.
[2020-01-11 12:34] LABS: Urine Blood NEGATIVE (NEG); Urine Glucose NEGATIVE (NEG); Urine Protein 1+ (NEG); Urine Specific Gravity 1.025 (1.005-1.030); Urine pH 6.5 (5.0-7.0)
--- NOTE | 2020-01-11 12:52 | RAD REPORT ---
EXAM DESCRIPTION: RAD - Chest Single View - 01/11/2020 12:36 pm CLINICAL HISTORY: CHEST PAIN Chest pain. COMPARISON: Chest Single View dated 02/01/2019; Chest Single View dated 09/27/2018; Chest Single View dated 09/23/2018; Chest Single View dated 07/23/2018 FINDINGS: Portable technique limits examination quality. The lungs are grossly clear. The heart is normal in size. No displaced fractures. IMPRESSION: No acute intrathoracic process suspected.
--- NOTE | 2020-01-11 13:42 | ER ---
Nurse's Notes [facility] Name: Nacho Lopez Age: 19 yrs Sex: Male : 2000 Arrival Date: 01/11/2020 Time: 09:58 Bed 17 Private MD: Diagnosis: Other chest pain;Nausea and vomiting Presentation: 01/10 10:03 Chief complaint: Patient states: "I've been having chest pains, vomiting, diarrhea on aa5 and off for about 2 weeks now". Pt states "they told me it was acid reflux here but it hasn't gotten any better". Pt reports SOB, denies cough, denies fever. 10:03 Coronavirus screen: Patient denies a cough. Patient reports shortness of breath or aa5 difficulty breathing. Patient denies measured and/or subjective temperature greater than 100.4F prior to today's visit. Patient denies travel on a cruise ship or to a country the [facility] currently lists as an affected area. Patient denies contact with known and/or suspected case of COVID-19. Ebola Screen: Patient negative for fever greater than or equal to 101.5 degrees Fahrenheit, and additional compatible Ebola Virus Disease symptoms. Initial Sepsis Screen: Does the patient meet any 2 criteria? HR > 90 bpm. Does the patient have a suspected source of infection? No. Patient's initial sepsis screen is negative. Risk Assessment: Do you want to hurt yourself or someone else? Patient reports no desire to harm self or others. Onset of symptoms was December 2019. 10:03 Method Of Arrival: Ambulatory aa5 10:03 Acuity: KLAUS 3 aa5 Historical: - Allergies: 10:16 NKA; aa5 - Home Meds: 10:16 Nexium Oral [Active]; aa5 - PMHx: 10:16 GERD; aa5 - Immunization history:: Flu vaccine is not up to date. - Social history:: Smoking status: Patient denies any tobacco usage or history of. Screenin:30 Abuse screen: Denies threats or abuse. Denies injuries from another. Nutritional ca1 screening: No deficits noted. Tuberculosis screening: No symptoms or risk factors identified. Fall Risk IV access (20 points). Assessment: 10:30 General: Appears in no apparent distress. uncomfortable, Behavior is calm, cooperative, ca1 appropriate for age. Pain: Complains of pain in chest Pain does not radiate. Pain currently is 10 out of 10 on a pain scale. Pain began this morning after the vomiting. Neuro: Level of Consciousness is awake, alert, obeys commands, Oriented to person, place, time, situation, Appropriate for age. Cardiovascular: Heart tones S1 S2 present Capillary refill < 3 seconds Patient's skin is warm and dry. Rhythm is sinus tachycardia. Respiratory: Airway is patent Respiratory effort is even, unlabored, Respiratory pattern is regular, symmetrical. Respiratory: Breath sounds are clear bilaterally. GI: Abdomen is round non-distended, Bowel sounds present X 4 quads. Abd is soft and non tender X 4 quads. Reports nausea, vomiting, since last night. : No signs and/or symptoms were reported regarding the genitourinary system. EENT: No signs and/or symptoms were reported regarding the EENT system. Derm: Skin is intact, is healthy with good turgor, Skin is pink, warm \\T\\ dry. Musculoskeletal: Circulation, motion, and sensation intact. Capillary refill < 3 seconds. 11:11 Reassessment: Patient appears in no apparent distress at this time. Patient and/or ca1 family updated on plan of care and expected duration. Pain level reassessed. Patient is alert, oriented x 3, equal unlabored respirations, skin warm/dry/pink. General: Appears in no apparent distress. comfortable. 11:45 Reassessment: Ultrasound at bedside. ca1 12:13 Reassessment: Patient appears in no apparent distress at this time. Patient and/or ca1 family updated on plan of care and expected duration. Pain level reassessed. Patient is alert, oriented x 3, equal unlabored respirations, skin warm/dry/pink. 12:48 Reassessment: Pt states, "I tried drinking the water you gave but I felt nauseated so I ca1 stopped". Notified provider. 13:40 Reassessment: Patient appears in no apparent distress at this time. Patient is alert, ca1 oriented x 3, equal unlabored respirations, skin warm/dry/pink. Patient states feeling better. Patient states symptoms have improved. Vital Signs: 10:03 BP 151 / 110; Pulse 120; Resp 20 S; Temp 98.4(O); Pulse Ox 100% on R/A; Weight 117.93 aa5 kg (R); Height 6 ft. 3 in. (190.50 cm) (R); Pain 10/10; 11:11 BP 160 / 104; Pulse 97; Resp 20; Pulse Ox 100% on R/A; ca1 12:19 BP 166 / 109; Pulse 106; Resp 24 S; Pulse Ox 100% on R/A; ca1 12:48 BP 168 / 101; Pulse 95; Resp 17 S; Pulse Ox 100% on R/A; ca1 13:40 BP 159 / 98; Pulse 92; Resp 17 S; Pulse Ox 100% on R/A; ca1 10:03 Body Mass Index 32.50 (117.93 kg, 190.50 cm) aa5 ED Course: 09:58 Patient arrived in ED. ag5 10:02 Rik Banuelos PA is PHCP. cp 10:02 Rik Harper MD is Attending Physician. cp 10:03 Arm band placed on Patient placed in an exam room, on a stretcher. aa5 10:07 Juliane Alan, RN is Primary Nurse. ca1 10:09 EKG done, by audio video tech. reviewed by Rik AVENDANO. at1 10:16 Triage completed. aa5 10:30 Patient has correct armband on for positive identification. Placed in gown. Bed in low ca1 position. Call light in reach. Side rails up X 1. wellness rn on. Pulse ox on. NIBP on. Warm blanket given. 10:32 No provider procedures requiring assistance completed. Initial lab(s) drawn, by pr, ca1 sent to lab. Inserted saline lock: 20 gauge in right antecubital area, using aseptic technique. Blood collected. 12:07 US Abdomen Limited: RUQ/epigastric In Process Unspecified. EDMS 12:12 Urine collected: clean catch specimen, clear. ca1 12:36 XRAY Chest (1 view) In Process Unspecified. EDMS 13:41 Jason Armstrong MD is Referral Physician. cp 13:53 IV discontinued, intact, bleeding controlled, No redness/swelling at site. Pressure ca1 dressing applied. Administered Medications: 10:33 Drug: NS 0.9% 1000 ml Route: IV; Rate: 1 bolus; Site: right antecubital; ca1 11:49 Follow up: Response: No adverse reaction; IV Status: Completed infusion ca1 10:34 Drug: Zofran (Ondansetron) 4 mg Route: IVP; Site: right antecubital; ca1 11:49 Follow up: Response: No adverse reaction; Nausea is decreased; Vomiting decreased ca1 10:36 Drug: morphine 4 mg {Note: RASS 0.} Route: IVP; Site: right antecubital; ca1 11:49 Follow up: Response: No adverse reaction; Pain is decreased; RASS: Alert and Calm (0) ca1 10:38 Drug: ProTONIX 40 mg Route: IVP; Site: right antecubital; ca1 11:48 Follow up: Response: No adverse reaction ca1 12:47 Drug: NS 0.9% 1000 ml Route: IV; Rate: 1 bolus; Site: right antecubital; ca1 13:43 Follow up: Response: No adverse reaction; IV Status: Completed infusion ca1 12:56 Drug: Zofran (Ondansetron) 4 mg Route: IVP; Site: right antecubital; ca1 13:35 Follow up: Response: No adverse reaction; Nausea is decreased ca1 13:44 Drug: TORadol - Ketorolac 15 mg Route: IVP; Site: right antecubital; ca1 13:53 Follow up: Response: Medication administered at discharge. ca1 Outcome: 13:41 Discharge ordered by MD. cp 13:53 Discharged to home ambulatory. ca1 13:53 Condition: stable 13:53 Discharge instructions given to patient, Instructed on discharge instructions, follow up and referral plans. medication usage, Demonstrated understanding of instructions, follow-up care, medications, Prescriptions given X 3. 13:54 Patient left the ED. ca1 Signatures: Dispatcher [employer] EDMS Kesha Rossi RN RN aa5 Shivani Jones, property damage claims adjustor EKG Tat1 Rik Banuelos PA PA Juliane Vizcarra RN RN ca1 Fabian Ramirez ag5
--- NOTE | 2020-01-11 13:42 | EDPHYS ---
Physician Documentation [facility] Name: Nacho Lopez Age: 19 yrs Sex: Male : 2000 Arrival Date: 01/11/2020 Time: 09:58 Bed 17 Private MD: ED Physician Rik Harper HPI: 01/10 10:22 This 19 yrs old Male presents to ER via Ambulatory with complaints of cp Vomiting, Chest Pain. 10:22 The patient or guardian reports chest pain that is located primarily in the substernal cp area. The pain does not radiate. Associated signs and symptoms: Pertinent positives: nausea, vomiting. Duration: The patient or guardian reports multiple episodes. Patient reports pain for past couple of weeks. 10:25 Patient reports he was diagnosed with acid reflux as cause of pain and has been taking cp OTC meds for acid reflux w/o relief. Patient admits to frequent use of marijuana. Historical: - Allergies: 10:16 NKA; aa5 - Home Meds: 10:16 Nexium Oral [Active]; aa5 - PMHx: 10:16 GERD; aa5 - Immunization history:: Flu vaccine is not up to date. - Social history:: Smoking status: Patient denies any tobacco usage or history of. ROS: 10:30 Constitutional: Negative for body aches, chills, fever, poor PO intake. cp 10:30 Eyes: Negative for injury, pain, redness, and discharge. cp 10:30 ENT: Negative for drainage from ear(s), ear pain, sore throat, difficulty swallowing, difficulty handling secretions. 10:30 Cardiovascular: Positive for chest pain, Negative for edema, palpitations. 10:30 Respiratory: Negative for cough, shortness of breath, wheezing. 10:30 Abdomen/GI: Positive for nausea and vomiting, diarrhea, Negative for abdominal pain, anorexia, black/tarry stool, rectal bleeding. 10:30 Back: Negative for radiated pain. 10:30 : Negative for urinary symptoms. 10:30 Neuro: Negative for altered mental status, headache, weakness. 10:30 All other systems are negative. Exam: 10:29 ECG was reviewed by the Attending Physician. cp 10:35 Constitutional: The patient appears in no acute distress, alert, awake, cp non-diaphoretic, non-toxic, well developed, well nourished. 10:35 Head/Face: Normocephalic, atraumatic. cp 10:35 Eyes: Periorbital structures: appear normal, Conjunctiva: normal, no exudate, no injection, Sclera: no appreciated abnormality, Lids and lashes: appear normal, bilaterally. 10:35 ENT: External ear(s): are unremarkable, Nose: is normal, Mouth: Lips: moist, Oral mucosa: pink and intact, moist, Posterior pharynx: is normal, airway is patent, no erythema, no exudate. 10:35 Chest/axilla: Inspection: normal, Palpation: is normal, no crepitus, no tenderness. 10:35 Cardiovascular: Rate: normal, Rhythm: regular, JVD: is not appreciated. 10:35 Respiratory: the patient does not display signs of respiratory distress, Respirations: normal, no use of accessory muscles, no retractions, labored breathing, is not present, Breath sounds: are clear throughout, no decreased breath sounds, no stridor, no wheezing. 10:35 Abdomen/GI: Inspection: abdomen appears normal, Bowel sounds: active, all quadrants, Palpation: soft, in all quadrants, mild abdominal tenderness, in the epigastric area, rebound tenderness, is not appreciated, involuntary guarding, is not appreciated. Vital Signs: 10:03 BP 151 / 110; Pulse 120; Resp 20 S; Temp 98.4(O); Pulse Ox 100% on R/A; Weight 117.93 aa5 kg (R); Height 6 ft. 3 in. (190.50 cm) (R); Pain 10/10; 11:11 BP 160 / 104; Pulse 97; Resp 20; Pulse Ox 100% on R/A; ca1 12:19 BP 166 / 109; Pulse 106; Resp 24 S; Pulse Ox 100% on R/A; ca1 12:48 BP 168 / 101; Pulse 95; Resp 17 S; Pulse Ox 100% on R/A; ca1 13:40 BP 159 / 98; Pulse 92; Resp 17 S; Pulse Ox 100% on R/A; ca1 10:03 Body Mass Index 32.50 (117.93 kg, 190.50 cm) aa5 MDM: 10:06 Patient medically screened. cp 10:30 Differential diagnosis: abnormal EKG, acute myocardial infarction, chest wall pain, cp cholecystitis, Cholelithiasis esophagitis, gastritis, gastroesophageal reflux disease (GERD), pancreatitis. 13:40 Data reviewed: vital signs, nurses notes, lab test result(s), EKG, radiologic studies, cp plain films, ultrasound. 13:40 Test interpretation: by ED physician or midlevel provider: ECG. cp 13:41 Response to treatment: the patient's symptoms have markedly improved after treatment, cp VSS. Pain improved, and as a result, I will discharge patient. 01/10 10:24 Order name: Basic Metabolic Panel; Complete Time: 11:27 cp 01/10 11:27 Interpretation: Normal except: NA 132; K 3.4; CL 96; GLUC 111; GFR 78. cp 01/10 10:24 Order name: CBC with Diff; Complete Time: 11:27 cp 01/10 11:27 Interpretation: Normal except: WBC 11.2; RBC 6.07; MCV 80.3; AUDREY% 78.1; LYM% 13.8; NEUT cp A 8.8. 01/10 10:24 Order name: LFT's; Complete Time: 11:27 cp 01/10 10:24 Order name: Magnesium; Complete Time: 11:27 cp 01/10 10:24 Order name: PT-INR; Complete Time: 11:27 cp 01/10 10:24 Order name: Troponin (emerg Dept Use Only); Complete Time: 11:27 cp 01/10 10:24 Order name: Lipase; Complete Time: 11:27 cp 01/10 10:31 Order name: UDS; Complete Time: 12:36 cp 01/10 11:29 Order name: US Abdomen Limited: RUQ/epigastric; Complete Time: 12:36 cp 01/10 11:29 Order name: XRAY Chest (1 view); Complete Time: 13:05 cp 01/10 12:16 Order name: Urine Dipstick--Ancillary (enter results); Complete Time: 12:36 eb 01/10 10:06 Order name: EKG; Complete Time: 10:06 cp 01/10 10:06 Order name: EKG - Nurse/Tech; Complete Time: 11:48 cp 01/10 10:24 Order name: Cardiac monitoring; Complete Time: 10:35 cp 01/10 10:24 Order name: IV Saline Lock; Complete Time: 10:35 cp 01/10 10:24 Order name: Labs collected and sent; Complete Time: 10:35 cp 01/10 10:24 Order name: O2 Per Protocol; Complete Time: 10:35 cp 01/10 10:24 Order name: O2 Sat Monitoring; Complete Time: 10:35 cp 01/10 10:31 Order name: Urine Dipstick-Ancillary (obtain specimen); Complete Time: 12:12 cp 01/10 11:29 Order name: NPO; Complete Time: 11:48 cp 01/10 12:37 Order name: PO challenge; Complete Time: 12:42 cp EC:29 Rate is 117 beats/min. Rhythm is regular. CO interval is normal. QRS interval is cp normal. QT interval is normal. T waves are Inverted in leads III, aVF. Interpreted by me. Reviewed by me. Administered Medications: 10:33 Drug: NS 0.9% 1000 ml Route: IV; Rate: 1 bolus; Site: right antecubital; ca1 11:49 Follow up: Response: No adverse reaction; IV Status: Completed infusion ca1 10:34 Drug: Zofran (Ondansetron) 4 mg Route: IVP; Site: right antecubital; ca1 11:49 Follow up: Response: No adverse reaction; Nausea is decreased; Vomiting decreased ca1 10:36 Drug: morphine 4 mg {Note: RASS 0.} Route: IVP; Site: right antecubital; ca1 11:49 Follow up: Response: No adverse reaction; Pain is decreased; RASS: Alert and Calm (0) ca1 10:38 Drug: ProTONIX 40 mg Route: IVP; Site: right antecubital; ca1 11:48 Follow up: Response: No adverse reaction ca1 12:47 Drug: NS 0.9% 1000 ml Route: IV; Rate: 1 bolus; Site: right antecubital; ca1 13:43 Follow up: Response: No adverse reaction; IV Status: Completed infusion ca1 12:56 Drug: Zofran (Ondansetron) 4 mg Route: IVP; Site: right antecubital; ca1 13:35 Follow up: Response: No adverse reaction; Nausea is decreased ca1 13:44 Drug: TORadol - Ketorolac 15 mg Route: IVP; Site: right antecubital; ca1 13:53 Follow up: Response: Medication administered at discharge. ca1 Disposition: 05/01/20 13:41 Discharged to Home. Impression: Other chest pain, Nausea and vomiting. - Condition is Stable. - Discharge Instructions: Nonspecific Chest Pain, Nausea and Vomiting, Adult. - Prescriptions for Carafate 1 gram Oral Tablet - take 1 tablet by ORAL route 4 times per day take on an empty stomach, beginning on waking and last dose at bedtime. dissolve in small amount warm water prior to ingestion; 100 tablet. Protonix 40 mg Oral Tablet - take 1 tablet by ORAL route once daily; 30 tablet. promethazine 25 mg Oral Tablet - take 1 tablet by ORAL route every 6 hours As needed; 20 tablet. - Medication Reconciliation Form, Thank You Letter, Antibiotic Education, Prescription Opioid Use form. - Follow up: Jason Armstrong MD; When: 2 - 3 days; Reason: Recheck today's complaints. - Problem is new. - Symptoms have improved. Addendum: 01/12/2020 14:32 Co-signature as Attending Physician, Rik Harper MD I agree with the assessment and c pringle plan of care. Signatures: Dispatcher [employer] [facility] Rik Harper MD MD cha Calderon, Audri, RN RN aa5 Rik Banuelos PA PA cp Juliane Alan, RN RN ca1 Corrections: (The following items were deleted from the chart) 01/10 12:50 12:37 Chest Single View+RAD.RAD.BRZ ordered. [facility] 13:54 13:41 01/11/2020 13:41 Discharged to Home. Impression: Other chest pain; Nausea and ca1 vomiting. Condition is Stable. Forms are Medication Reconciliation Form, Thank You Letter, Antibiotic Education, Prescription Opioid Use. Follow up: Jason Armstrong; When: 2 - 3 days; Reason: Recheck today's complaints. Problem is new. Symptoms have improved. cp
[2020-01-11] MEDS ORDERED: KETOROLAC 30 MG/ML INJ ONE (13:53)
[2020-01-11 14:01] VITALS: TEMP 98.4; O2SAT 100
[2020-01-11 14:06] VITALS: BP 159/98
--- NOTE | 2020-01-12 09:45 | EKG ---
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
== END 2020-01-11 13:54 | disposition home or self-care (01) ==
LOC: ER 09:56
DX: R11.2 Nausea with vomiting, unspecified (principal); K21.9 Gastro-esophageal reflux disease without esophagitis
CPT/HCPCS: 36415; 71045; 76705; 80048; 80076; 80307; 81003; 83690; 83735; 84484; 85025; 85610; 93005; 96361; 96374; 96375; 99285; C9113; J2405; J7030

== ENCOUNTER 2020-12-11 01:28 | Emergency (ER) | payer SELFPAY ==
--- OUTSIDE RECORDS SUMMARY | 2020-12-11 01:31 | XMS REPORT | Continuity of Care Document ---
:2000 Author Organization [facility] t Address [address] [place] [address] Care Team Providers Name Role Phone Ender Bonner MD Attending Clinician Xochitl oYu MD Attending Clinician Brayden Monet Attending Clinician Xochitl Kumar MD Attending Clinician Xochitl You MD Admitting Clinician Problems This patient has no known problems. Allergies, Adverse Reactions, Alerts This patient has no known allergies or adverse reactions. Medications This patient has no known medications. Procedures This patient has no known procedures. Encounters Start End Encounter Admission Attending Care Care Encounter Source Date/Time Date/Time Type Type Clinicians Facility Department ID 2020-04-13 2020-04-13 Emergency Brian Bonner TRAU[facility] [id number] 12:58:00 16:44:00 [facility] [id number] 2020-02-01 2020-02-01 [facility] BRENDA You [id number] 07:32:27 07:47:27 ne [facility] [id number] [facility] [id number] 2020-01-12 2020-01-13 Emergency Lisa Roberts [id number] 11:38:28 13:59:00 Enrique You [id number] [facility] [id number] 2019-12-31 2019-12-31 Emergency Stacy [facility] [id number] 00:44:11 02:52:00 Sukumar De Guzman [id number] [place] [id number] [place] [id number] Results This patient has no known results.
[2020-12-11] MEDS ORDERED: MAGNES/ALUMIN/SIMET 30ML UCUP ONE (02:04)
[2020-12-11] MEDS ORDERED: ONDANSETRON 4 MG/2 ML VIAL ONE (02:05)
[2020-12-11] MEDS ORDERED: FAMOTIDINE 20 MG/2 ML VIAL IV ONE (02:05)
[2020-12-11] MEDS ORDERED: LIDOCAINE VISCOUS 2% SOLN 15 ML UDC ONE (02:05)
[2020-12-11] MEDS ORDERED: NA CHLORIDE 0.9% 1,000 ML ONE (02:05)
[2020-12-11] MEDS ORDERED: MEPERIDINE HCL 50 MG/ML ONE (02:56)
--- NOTE | 2020-12-11 03:14 | EDPHYS ---
Physician Documentation [facility] Name: Nacho Lopez Age: 20 yrs Sex: Male : 2000 Arrival Date: 12/11/2020 Time: 01:29 Bed 5 Private MD: ED Physician Héctor Mukherjee HPI: 12/11 01:43 This 20 yrs old Male presents to ER via Unassigned with complaints of rn Vomiting, Chest Pain. 01:43 The patient presents to the emergency department with nausea, vomiting, abdominal pain, rn of the epigastric area, described as intermittent, and does not radiate. 01:43 Onset: The symptoms/episode began/occurred last night. Possible causes: flare up of rn bowel problem, GERD. The symptoms are aggravated by smoking marijuana The symptoms are alleviated by nothing. Associated signs and symptoms: Pertinent positives: abdominal pain, nausea, vomiting, Pertinent negatives: diarrhea, fever, GI bleeding. Severity of symptoms: At their worst the symptoms were moderate in the emergency department the symptoms are unchanged. The patient has experienced similar episodes in the past. The patient has not recently seen a physician. Reports "here again". + hx of upper abd pain and chest pain with vomiting, he thinks now that he has done research may be related to him smoking marijuana. . Historical: - Allergies: 01:49 NKA; bb - Home Meds: 01:49 None [Active]; bb - PMHx: 01:49 GERD; bb - PSHx: 01:49 None; bb - Immunization history:: Adult Immunizations up to date. - Social history:: Smoking status: Patient reports the use of cigarette tobacco products, smokes one-half pack cigarettes per day, Patient uses alcohol, occasionally. street drugs, marijuana. - Family history:: not pertinent. - Hospitalizations: : No recent hospitalization is reported. ROS: 01:43 Constitutional: Negative for fever, chills, and weight loss, Eyes: Negative for injury, rn pain, redness, and discharge, Neck: Negative for injury, pain, and swelling, Cardiovascular: Negative for palpitations, and edema, Respiratory: Negative for shortness of breath, cough, wheezing, and pleuritic chest pain, Abdomen/GI: Negative for diarrhea, and constipation, Back: Negative for injury and pain, MS/Extremity: Negative for injury and deformity, Skin: Negative for injury, rash, and discoloration, Neuro: Negative for headache, weakness, numbness, tingling, and seizure. 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 Head/Face: Normocephalic, atraumatic. Eyes: Periorbital areas with no swelling, redness, or edema. Cardiovascular: Regular rate and rhythm. No pulse deficits. Respiratory: No increased work of breathing, no retractions or nasal flaring. Abdomen/GI: soft, non-tender, no masses, neg martinez Skin: Warm, dry MS/ Extremity: Pulses equal, no cyanosis. Neurovascular intact. Full, normal range of motion. Equal circumference. Neuro: Awake and alert, GCS 15, oriented to person, place, time, and situation. Cranial nerves II-XII grossly intact. Motor strength 5/5 in all extremities. Sensory grossly intact. Cerebellar exam normal. Normal gait. Vital Signs: 01:44 BP 169 / 112; Pulse 88; Resp 16 S; Temp 98.2(O); Pulse Ox 95% on R/A; Weight 140.61 kg bb (R); Height 6 ft. 3 in. (190.50 cm) (R); Pain 9/10; 01:45 BP 183 / 94; Pulse 65; Pulse Ox 94% ; sf 02:00 BP 159 / 105; Pulse 65; Resp 16; Pulse Ox 96% ; sf 02:30 BP 168 / 103; Pulse 70; Resp 16; Pulse Ox 99% ; sf 02:45 BP 156 / 92; Pulse 62; Resp 16; Pulse Ox 98% ; sf 03:21 BP 130 / 62; Pulse 60; Resp 18; Pulse Ox 98% ; ea 01:44 Body Mass Index 38.75 (140.61 kg, 190.50 cm) bb MDM: 01:32 Patient medically screened. rn 03:12 Differential diagnosis: Nonspecific abd pain, gastritis, viral gastroenteritis, rn gastroenteritis, cyclical vomiting syndrome. Data reviewed: vital signs, nurses notes, old medical records, and as a result, I will discharge patient. Counseling: I had a detailed discussion with the patient and/or guardian regarding: the historical points, exam findings, and any diagnostic results supporting the discharge/admit diagnosis, the need for outpatient follow up, to return to the emergency department if symptoms worsen or persist or if there are any questions or concerns that arise at home. Response to treatment: the patient's symptoms have markedly improved after treatment, and as a result, I will discharge patient. Special discussion: I discussed with the patient/guardian in detail that at this point there is no indication for admission to the hospital. It is understood, however, that if the symptoms persist or worsen the patient needs to return immediately for re-evaluation. ED course: Counseled regarding need to stop smoking marijuana. Improved, will dc home.. 12/11 01:43 Order name: IV Start; Complete Time: 02:10 rn Administered Medications: 01:59 Drug: NS 0.9% 1000 ml Route: IV; Rate: 1000 ml; Site: right antecubital; ea 03:29 Follow up: Response: No adverse reaction ea 01:59 Drug: Zofran (Ondansetron) 4 mg Route: IVP; Site: right antecubital; ea 03:29 Follow up: Response: No adverse reaction ea 01:59 Drug: Pepcid (famotidine) 20 mg Route: IVP; Site: right antecubital; ea 03:29 Follow up: Response: No adverse reaction ea 01:59 Drug: GI Cocktail without - (Maalox Suspension 30 ml, Lidocaine Liquid 2 % 15 ea ml) Route: PO; 03:29 Follow up: Response: No adverse reaction ea 02:41 Drug: Demerol 50 mg Route: IVP; Site: right antecubital; ea 03:30 Follow up: Response: No adverse reaction ea Disposition: 12/11/20 03:13 Discharged to Home. Impression: Vomiting, unspecified. - Condition is Stable. - Discharge Instructions: Nausea and Vomiting, Adult. - Prescriptions for Zofran ODT 4 mg Oral tablet,disintegrating - place 1 tablet by TRANSLINGUAL route every 8 hours As needed; 20 tablet. - Medication Reconciliation Form, Thank You Letter, Antibiotic Education, Prescription Opioid Use form. - Follow up: Private Physician; When: As needed; Reason: Recheck today's complaints, Re-evaluation by your physician. - Problem is an ongoing problem. - Symptoms have improved. Signatures: Patricia Klein RN RN bb Nieto, Roman, MD MD rn Antunez, Elena, RN RN ea Corrections: (The following items were deleted from the chart) 03:28 03:13 12/11/2020 03:13 Discharged to Home. Impression: Vomiting, unspecified. Condition ea is Stable. Forms are Medication Reconciliation Form, Thank You Letter, Antibiotic Education, Prescription Opioid Use. Follow up: Private Physician; When: As needed; Reason: Recheck today's complaints, Re-evaluation by your physician. Problem is an ongoing problem. Symptoms have improved. rn
--- NOTE | 2020-12-11 03:14 | ER ---
Nurse's Notes [facility] Name: Nacho Lopez Age: 20 yrs Sex: Male : 2000 Arrival Date: 12/11/2020 Time: 01:29 Bed 5 Private MD: Diagnosis: Vomiting, unspecified Presentation: 12/11 01:44 Chief complaint: Patient states: he is vomiting with chest pain x 2 days the chest pain bb is burning, sharp, and worsens with vomiting, pt admits to marijuana use and thinks his vomiting is related to that because taking hot showers help. Coronavirus screen: At this time, the client does not indicate any symptoms associated with coronavirus-19. Ebola Screen: No symptoms or risks identified at this time. Initial Sepsis Screen: Does the patient meet any 2 criteria? No. Patient's initial sepsis screen is negative. Does the patient have a suspected source of infection? No. Patient's initial sepsis screen is negative. Risk Assessment: Do you want to hurt yourself or someone else? Patient reports no desire to harm self or others. Onset of symptoms was December 09, 2020. 01:44 Method Of Arrival: Ambulatory bb 01:44 Acuity: KLAUS 3 bb Historical: - Allergies: 01:49 NKA; bb - Home Meds: 01:49 None [Active]; bb - PMHx: 01:49 GERD; bb - PSHx: 01:49 None; bb - Immunization history:: Adult Immunizations up to date. - Social history:: Smoking status: Patient reports the use of cigarette tobacco products, smokes one-half pack cigarettes per day, Patient uses alcohol, occasionally. street drugs, marijuana. - Family history:: not pertinent. - Hospitalizations: : No recent hospitalization is reported. Screenin:00 Abuse screen: Denies threats or abuse. Nutritional screening: No deficits noted. ea Tuberculosis screening: No symptoms or risk factors identified. Fall Risk IV access (20 points). Assessment: 02:00 General: Appears in no apparent distress. Behavior is calm, cooperative, appropriate ea for age. Pain: Complains of pain in epigastric area. Neuro: Level of Consciousness is awake, alert, obeys commands, Oriented to person, place, time. Cardiovascular: Patient's skin is warm and dry. Respiratory: Airway is patent Respiratory effort is even, unlabored, Respiratory pattern is regular, symmetrical. Derm: Skin is pink, warm \T\ dry. 03:21 Reassessment: Patient and/or family updated on plan of care and expected duration. Pain ea level reassessed. Patient is alert, oriented x 3, equal unlabored respirations, skin warm/dry/pink. Patient states symptoms have improved. Vital Signs: 01:44 BP 169 / 112; Pulse 88; Resp 16 S; Temp 98.2(O); Pulse Ox 95% on R/A; Weight 140.61 kg bb (R); Height 6 ft. 3 in. (190.50 cm) (R); Pain 9/10; 01:45 BP 183 / 94; Pulse 65; Pulse Ox 94% ; sf 02:00 BP 159 / 105; Pulse 65; Resp 16; Pulse Ox 96% ; sf 02:30 BP 168 / 103; Pulse 70; Resp 16; Pulse Ox 99% ; sf 02:45 BP 156 / 92; Pulse 62; Resp 16; Pulse Ox 98% ; sf 03:21 BP 130 / 62; Pulse 60; Resp 18; Pulse Ox 98% ; ea 01:44 Body Mass Index 38.75 (140.61 kg, 190.50 cm) bb ED Course: 01:29 Patient arrived in ED. cl3 01:32 Héctor Mukherjee MD is Attending Physician. rn 01:44 Park Cerda RN is Primary Nurse. ea 01:46 Triage completed. bb 01:49 Arm band placed on Patient placed in an exam room, on a stretcher, on pulse oximetry. bb 01:59 Inserted saline lock: 20 gauge in right antecubital area, using aseptic technique. ea Blood collected. 02:00 Patient has correct armband on for positive identification. Bed in low position. Call ea light in reach. Side rails up X2. 03:21 No provider procedures requiring assistance completed. IV discontinued, intact, ea bleeding controlled, No redness/swelling at site. Pressure dressing applied. Administered Medications: :59 Drug: NS 0.9% 1000 ml Route: IV; Rate: 1000 ml; Site: right antecubital; ea 03:29 Follow up: Response: No adverse reaction ea 01:59 Drug: Zofran (Ondansetron) 4 mg Route: IVP; Site: right antecubital; ea 03:29 Follow up: Response: No adverse reaction ea 01:59 Drug: Pepcid (famotidine) 20 mg Route: IVP; Site: right antecubital; ea 03:29 Follow up: Response: No adverse reaction ea 01:59 Drug: GI Cocktail without - (Maalox Suspension 30 ml, Lidocaine Liquid 2 % 15 ea ml) Route: PO; 03:29 Follow up: Response: No adverse reaction ea 02:41 Drug: Demerol 50 mg Route: IVP; Site: right antecubital; ea 03:30 Follow up: Response: No adverse reaction ea Outcome: 03:13 Discharge ordered by . rn 03:28 Discharged to home ambulatory, with family. ea 03:28 Condition: stable 03:28 Discharge instructions given to patient, Instructed on discharge instructions, follow up and referral plans. medication usage, Demonstrated understanding of instructions, follow-up care, medications, Prescriptions given X 1. 03:28 Patient left the ED. ea Signatures: Patricia Klein RN RN bb Nieto, Roman, MD MD rn Antunez, Elena, RN RN ea Lewis, Charde cl3 David Ryder RN RN sf
[2020-12-11 14:58] VITALS: TEMP 98.2
[2020-12-11 15:26] VITALS: O2SAT 98
[2020-12-11 15:27] VITALS: BP 130/62
== END 2020-12-11 03:28 | disposition home or self-care (01) ==
LOC: ER 01:28
DX: R11.10 Vomiting, unspecified (principal); F17.210 Nicotine dependence, cigarettes, uncomplicated
CPT/HCPCS: 96374; 96375; 99284; J2175; J2405; J7030

== ENCOUNTER 2021-02-14 10:30 | Emergency (ER) | payer SELFPAY ==
--- OUTSIDE RECORDS SUMMARY | 2021-02-14 10:32 | XMS REPORT | Continuity of Care Document ---
:2000 Author Organization [facility] t Address [address] [place] [address] Care Team Providers Name Role Phone Margarito Al DO Attending Clinician Doctor Unassigned, Name Attending Clinician Unavailable Ender Bonner MD Attending Clinician Xochitl You MD Attending Clinician Brayden Monet Attending Clinician [...] Date/Time Type Type Clinicians Facility Department ID 2020-12-12 2020-12-[address] [facility] [id number] 09:36:00 10:28:00 Martha De Guzman [id number] [place] [id number] [place] [id number] 2020-12-12 2020-12-12 Carlos BROOKS [id number] 00:00:00 00:00:00 Only UnassignedCRISTOBAL [id number] [place] [facility] [id number] 2020-04-13 2020-04-13 Emergency Brian Bonner [place] [id number] 12:58:00 16:44:00 [facility] [id number] 2020-02-01 2020-02-01 [facility] [id number] 07:32:27 07:47:27 ne Visit Enrique Leung [facility] [id number] [facility] [id number] 2020-01-12 2020-01-13 Emergency ArmandoErnieshaun Owen Esmer [id number] 11:38:28 13:59:00 nErique Youy [id number] [facility] [id number] 2019-12-31 2019-12-31 Emergency [facility] [id number] 00:44:11 02:52:00 Sukumar De Guzman [id number] [place] [id number] [place] [phone] [id number] Results This patient has no known results.
[2021-02-14] MEDS ORDERED: IBUPROFEN 400 MG TAB ONE (11:36)
[2021-02-14] MEDS ORDERED: HYDROCODONE/APAP 10/325 TAB ONE (11:37)
--- NOTE | 2021-02-14 11:57 | EDPHYS ---
Physician Documentation [facility] Name: Nacho Lopez Age: 20 yrs Sex: Male : 2000 Arrival Date: 02/14/2021 Time: 10:32 Bed 12 Private MD: ED Physician Rik Harper HPI: 02/14 11:49 This 20 yrs old Male presents to ER via Wheelchair with complaints of Knee fortunato Injury. 11:49 The patient presents with decreased range of motion, pain, that is acute. The fortunato complaints affect the left knee. Context: The problem was sustained at a sports field or court, resulted from. Onset: The symptoms/episode began/occurred yesterday. Modifying factors: The symptoms are alleviated by elevating leg, remaining still, the symptoms are aggravated by movement, weight bearing, bending knee. Associated signs and symptoms: The patient has no apparent associated signs or symptoms. Treatment prior to arrival includes: icing the affected extremity. Severity of symptoms: At their worst the symptoms were mild, moderate, in the emergency department the symptoms are unchanged. The patient has not experienced similar symptoms in the past. Historical: - Allergies: 11:06 NKA; aa5 - PMHx: 11:06 GERD; aa5 - PSHx: 11:06 None; aa5 - Immunization history:: Adult Immunizations up to date. - Social history:: Smoking status: Reported history of juuling and/or vaping. - Family history:: not pertinent. ROS: 11:49 Constitutional: Negative for fever, chills, and weight loss, Eyes: Negative for injury, fortunato pain, redness, and discharge, ENT: Negative for injury, pain, and discharge, Neck: Negative for injury, pain, and swelling, Cardiovascular: Negative for chest pain, palpitations, and edema, Respiratory: Negative for shortness of breath, cough, wheezing, and pleuritic chest pain, Abdomen/GI: Negative for abdominal pain, nausea, vomiting, diarrhea, and constipation, Back: Negative for injury and pain, : Negative for injury, bleeding, discharge, and swelling, Skin: Negative for injury, rash, and discoloration, Neuro: Negative for headache, weakness, numbness, tingling, and seizure, Psych: Negative for depression, anxiety, suicide ideation, homicidal ideation, and hallucinations, Allergy/Immunology: Negative for hives, rash, and allergies, Endocrine: Negative for neck swelling, polydipsia, polyuria, polyphagia, and marked weight changes, Hematologic/Lymphatic: Negative for swollen nodes, abnormal bleeding, and unusual bruising. 11:49 MS/extremity: Positive for decreased range of motion, pain, tenderness, of the left knee. Exam: 11:49 Constitutional: This is a well developed, well nourished patient who is awake, alert, fortunato and in no acute distress. Head/Face: Normocephalic, atraumatic. Eyes: Pupils equal round and reactive to light, extra-ocular motions intact. Lids and lashes normal. Conjunctiva and sclera are non-icteric and not injected. Cornea within normal limits. Periorbital areas with no swelling, redness, or edema. ENT: Nares patent. No nasal discharge, no septal abnormalities noted. Tympanic membranes are normal and external auditory canals are clear. Oropharynx with no redness, swelling, or masses, exudates, or evidence of obstruction, uvula midline. Mucous membranes moist. Neck: Trachea midline, no thyromegaly or masses palpated, and no cervical lymphadenopathy. Supple, full range of motion without nuchal rigidity, or vertebral point tenderness. No Meningismus. Chest/axilla: Normal chest wall appearance and motion. Nontender with no deformity. No lesions are appreciated. Cardiovascular: Regular rate and rhythm with a normal S1 and S2. No gallops, murmurs, or rubs. Normal PMI, no JVD. No pulse deficits. Respiratory: Lungs have equal breath sounds bilaterally, clear to auscultation and percussion. No rales, rhonchi or wheezes noted. No increased work of breathing, no retractions or nasal flaring. Abdomen/GI: Soft, non-tender, with normal bowel sounds. No distension or tympany. No guarding or rebound. No evidence of tenderness throughout. Back: No spinal tenderness. No costovertebral tenderness. Full range of motion. Male : Normal genitalia with no discharge or lesions. Skin: Warm, dry with normal turgor. Normal color with no rashes, no lesions, and no evidence of cellulitis. Neuro: Awake and alert, GCS 15, oriented to person, place, time, and situation. Cranial nerves II-XII grossly intact. Motor strength 5/5 in all extremities. Sensory grossly intact. Cerebellar exam normal. Normal gait. Psych: Awake, alert, with orientation to person, place and time. Behavior, mood, and affect are within normal limits. 11:49 Musculoskeletal/extremity: Extremities: decreased ROM, pain, ROM: limited active range of motion due to pain, limited passive range of motion due to pain, in the left knee, Pulses: are normal with no appreciated deficits, Sensation intact. Compartment Syndrome exam of affected extremity: is normal. Joints: All joints are normal except Weight bearing: is unable to bear weight, DVT Exam: negative Homans' sign noted on exam, no appreciated bluish discoloration, no erythema, no increased warmth, pain, swelling, tenderness. Vital Signs: 11:05 BP 135 / 93; Pulse 80; Resp 18 S; Temp 98.4(TE); Pulse Ox 99% on R/A; Weight 133.81 kg aa5 (R); Height 6 ft. 3 in. (190.50 cm) (R); 11:05 Body Mass Index 36.87 (133.81 kg, 190.50 cm) aa5 MDM: 11:08 Patient medically screened. fortunato 11:08 Patient medically screened. fortunato 11:54 Differential diagnosis: dislocation, closed fracture, contusion, abrasion. Data [facility] reviewed: vital signs, nurses notes, radiologic studies, plain films. Data interpreted: despatching and receiving clerk: rate is 80 beats/min, rhythm is regular, Pulse oximetry: on room air is 99 %. Test interpretation: by ED physician or midlevel provider: plain radiologic studies. Counseling: I had a detailed discussion with the patient and/or guardian regarding: the historical points, exam findings, and any diagnostic results supporting the discharge/admit diagnosis, lab results, radiology results, the need for outpatient follow up, for definitive care, a orthopedic surgeon. 02/14 11:09 Order name: Knee Left 3 View XRAY [facility] 02/14 11: Order name: Ice pack; Complete Time: fortunato 02/14 11:09 Order name: Knee Immobilizer; Complete Time: [facility] 02/14 11:09 Order name: Crutches; Complete Time: :43 [facility] Administered Medications: 11:18 Drug: Motrin (ibuprofen) 800 mg Route: PO; ss 12:11 Follow up: Response: No adverse reaction; Pain is decreased ss 11:18 Drug: [place] (HYDROcodone-acetaminophen) 10 mg-325 mg 1 tabs Route: PO; ss 12:10 Follow up: Response: No adverse reaction; Pain is decreased ss Disposition: 02/14/21 11:56 Discharged to Home. Impression: Pain in left knee, Other internal derangements of left knee. - Condition is Stable. - Discharge Instructions: Joint Pain, Arthritis, How to Use a Knee Brace, Musculoskeletal Pain, Knee Injection, Knee Pain, Cryotherapy, [id number], Cryotherapy, Knee Pain, [id number]. - Prescriptions for Ibuprofen 600 mg Oral Tablet - take 1 tablet by ORAL route every 6 hours As needed take with food; 20 tablet. Tylenol- Codeine #3 300-30 mg Oral Tablet - take 2 tablets by ORAL route every 4-6 hours As needed; 20 tablet. - Medication Reconciliation Form, Thank You Letter, Antibiotic Education, Prescription Opioid Use, Work release form form. - Follow up: Private Physician; When: 2 - 3 days; Reason: Recheck today's complaints, Continuance of care, Re-evaluation by your physician. Follow up: David Ndiaye MD; When: 2 - 3 days; Reason: Recheck today's complaints, Continuance of care, Re-evaluation by your physician. - Problem is new. - Symptoms have improved. Signatures: Dispatcher [employer] EDRik Ennis MD MD cha Calderon, Audri, RN RN aa5 Elizabeth Minor RN RN ss Corrections: (The following items were deleted from the chart) 12:11 11:56 02/14/2021 11:56 Discharged to Home. Impression: Pain in left knee; Other ss internal derangements of left knee. Condition is Stable. Forms are Work release form, Medication Reconciliation Form, Thank You Letter, Antibiotic Education, Prescription Opioid Use. Follow up: Private Physician; When: 2 - 3 days; Reason: Recheck today's complaints, Continuance of care, Re-evaluation by your physician. Follow up: David Ndiaye; When: 2 - 3 days; Reason: Recheck today's complaints, Continuance of care, Re-evaluation by your physician. Problem is new. Symptoms have improved. fortunato
--- NOTE | 2021-02-14 11:57 | ER ---
Nurse's Notes [facility] Name: Nacho Lopez Age: 20 yrs Sex: Male : 2000 Arrival Date: 02/14/2021 Time: 10:32 Bed 12 Private MD: Diagnosis: Pain in left knee;Other internal derangements of left knee Presentation: 02/14 11:05 Chief complaint: Patient states: [place] crack to left knee while playing basketball aa5 yesterday. Pt c/o swelling and pain to left knee. Coronavirus screen: At this time, the client does not indicate any symptoms associated with coronavirus-19. Ebola Screen: Patient negative for fever greater than or equal to 101.5 degrees Fahrenheit, and additional compatible Ebola Virus Disease symptoms. Initial Sepsis Screen: Does the patient meet any 2 criteria? No. Patient's initial sepsis screen is negative. Does the patient have a suspected source of infection? No. Patient's initial sepsis screen is negative. Risk Assessment: Do you want to hurt yourself or someone else? Patient reports no desire to harm self or others. Onset of symptoms was February 2021. 11:05 Method Of Arrival: Wheelchair aa5 11:05 Acuity: KLAUS 4 aa5 Historical: - Allergies: 11:06 NKA; aa5 - PMHx: 11:06 GERD; aa5 - PSHx: 11:06 None; aa5 - Immunization history:: Adult Immunizations up to date. - Social history:: Smoking status: Reported history of juuling and/or vaping. - Family history:: not pertinent. Screenin:18 Abuse screen: Denies threats or abuse. Denies injuries from another. Nutritional ss screening: No deficits noted. Tuberculosis screening: Never had TB. Fall Risk None identified. Assessment: 11:18 General: Appears in no apparent distress. Behavior is calm, cooperative. Pain: ss Complains of pain in left knee Pain currently is 8 out of 10 on a pain scale. Quality of pain is described as aching, tender, Pain began 1 day ago. Is continuous, Aggravated by weight bearing. Neuro: Level of Consciousness is awake, alert, obeys commands, Oriented to person, place, time, situation, Innovation Analyst are equal bilaterally Speech is normal, Facial symmetry appears normal. Cardiovascular: Capillary refill < 3 seconds is brisk in bilateral fingers. Respiratory: Airway is patent Respiratory effort is even, unlabored, Respiratory pattern is regular, symmetrical. GI: Patient currently denies abdominal pain, diarrhea, nausea, vomiting. : No signs and/or symptoms were reported regarding the genitourinary system. EENT: Oral mucosa is moist. Derm: Skin is intact, is healthy with good turgor, Skin is dry, Skin is pink, warm \T\ dry. normal. Musculoskeletal: Circulation, motion, and sensation intact. Range of motion: intact in all extremities, Swelling present in left knee. Vital Signs: 11:05 BP 135 / 93; Pulse 80; Resp 18 S; Temp 98.4(TE); Pulse Ox 99% on R/A; Weight 133.81 kg aa5 (R); Height 6 ft. 3 in. (190.50 cm) (R); 11:05 Body Mass Index 36.87 (133.81 kg, 190.50 cm) aa5 ED Course: 10:32 Patient arrived in ED. mr 11:05 Arm band placed on. aa5 11:06 Triage completed. aa5 11:08 Rik Harper MD is Attending Physician. fortunato 11:12 Elizabeth Minor RN is Primary Nurse. ss 11:18 Patient has correct armband on for positive identification. Bed in low position. Call ss light in reach. 11:43 Knee Left 3 View XRAY In Process Unspecified. EDMS 11:45 Crutch training done. Knee immobilizer applied on left knee. ss 11:55 David Ndiaye MD is Referral Physician. fortunato 12:10 No provider procedures requiring assistance completed. Patient did not have IV access ss during this emergency room visit. Administered Medications: 11:18 Drug: Motrin (ibuprofen) 800 mg Route: PO; ss 12:11 Follow up: Response: No adverse reaction; Pain is decreased ss 11:18 Drug: Norris (HYDROcodone-acetaminophen) 10 mg-325 mg 1 tabs Route: PO; ss 12:10 Follow up: Response: No adverse reaction; Pain is decreased ss Outcome: 11:56 Discharge ordered by . fortunato 12:10 Discharged to home with crutches. ss 12:10 Condition: good 12:10 Discharge instructions given to patient, Instructed on discharge instructions, follow up and referral plans. Demonstrated understanding of instructions, follow-up care, Prescriptions given X 2. 12:11 Patient left the ED. ss Signatures: Dispatcher [employer] EDRik Ennis MD MD cha Rivera, Mary mr Calderon, Audri, RN RN aaElizabeth Layne RN RN ss
--- NOTE | 2021-02-14 12:07 | RAD REPORT ---
EXAM DESCRIPTION: RAD - Knee Left 3 View - 02/14/2021 11:43 am CLINICAL HISTORY: PAIN COMPARISON: No comparisons FINDINGS: No fracture or dislocation seen. Trace suprapatellar joint effusion.
[2021-02-14 12:16] VITALS: BP 135/93; TEMP 98.4; O2SAT 99
== END 2021-02-14 12:11 | disposition home or self-care (01) ==
LOC: ER 10:30
DX: M23.8X2 Other internal derangements of left knee (principal)
CPT/HCPCS: 99284

== ENCOUNTER 2021-09-14 10:00 | Emergency (ER) | payer SELFPAY ==
--- OUTSIDE RECORDS SUMMARY | 2021-09-14 10:03 | XMS REPORT | Continuity of Care Document ---
:2000 Author Organization [facility] t Address [address] [place] [address] Care Team Providers Name Role Phone PCP, DOES NOT HAVE A Primary Care Physician Unavailable Margarito Al DO Attending Clinician Doctor Unassigned, Name Attending Clinician Unavailable Ender Bonner MD Attending Clinician Xochitl STRATTON Attending Clinician Unavailable Xochitl Stratton MD Attending Clinician Brayden Monet Attending Clinician Xochitl KUMAR Attending Clinician Unavailable Xochitl Kumar MD Attending Clinician Xochitl STRATTON Admitting Clinician Unavailable Xochitl Stratton MD Admitting Clinician Xochitl KUMAR Admitting Clinician Unavailable Payers Payer Name Policy Type Policy Number Effective Date Expiration Date Louie vergara COVID19 [facility] [id number] 2020 00:00:00 UNINSURED Problems This patient has no known problems. Allergies, Adverse Reactions, Alerts Allergy Allergy Status Severity Reaction(s) Onset Inactive Treating Comm ents Source Name Type Date Date Clinician NO KNOWN Drug Active [facility] Medications This patient has no known medications. Procedures This patient has no known procedures. Encounters Start End Encounter Admission Attending Care Care Encounter Source Date/Time Date/Time Type Type Clinicians Facility Department ID 2021-07-12 Emergency [facility] [id number] [facility] 10:18:03 ity [facility] 2021-07-10 Emergency [facility] [id number] Univers 10:15:11 ity [facility] 2020-12-12 2020-12-12 [facility] [id number] 09:36:00 10:28:00 [place] [id number] [place] [id number] [place] [id number] 2020-12-12 2020-12-12 Orders Doctor CECILIA [id number] 00:00:00 00:00:00 Only Unassigned, CRIST[place]AL [id number] [place] [facility] [id number] 2020-04-13 2020-04-13 Emergency Bonner, TRAUMA [id number] 12:58:00 16:44:00 [facility] [id number] 2020-02-01 2020-02-01 Outpatient R VIRAL [facility] [id number] Univers 13:30:00 13:30:00 ENRIQUE [id number] [facility] 2020-02-01 2020-02-01 Outpatient R VIRAL [facility] [id number] Univers 13:30:00 13:30:00 ENRIQUE [facility] 2020-02-01 2020-02-01 Telemedici BRENDA Stratton [id number] 07:32:27 07:47:27 [id number] [facility] [id number] 2020-01-31 2020-01-31 Outpatient R [facility] [id number] Univers 13:00:00 13:00:00 [id number] [facility] 2020-01-31 2020-01-31 Outpatient R [facility] [id number] Univers 13:00:00 13:00:[facility] 2020-01-13 Outpatient X VIRAL [facility] [id number] Univers 11:38:28 13:59:00 ENRIQUE hall [facility] 2020-01-12 2020-01-13 Emergency Lisa Roberts [id number] 11:38:28 13:59:00 Enrique Stratton [id number] [facility] [id number] 2019-12-31 2019-12-31 Emergency [facility] ERT [id number] Univers 00:44:11 02:52:00 SUKUMAR hall [facility] 2019-12-31 2019-12-31 [facility] [id number] 00:44:11 02:52:00 Sukumar De Guzman [id number] [place] [id number] [place] [id number] Results This patient has no known results.
[2021-09-14 12:06] LABS: SARS-COV-2 RT PCR POSITIVE (NEGATIVE)
--- NOTE | 2021-09-14 12:08 | EDPHYS ---
Physician Documentation [facility] Name: Nacho Lopez Age: 20 yrs Sex: Male : 2000 Arrival Date: 09/14/2021 Time: 10: Bed Waiting Private MD: ED Physician Rik Harper HPI: 09/14 10:56 This 20 yrs old Male presents to ER via Ambulatory with complaints of Cough, Fever, kb bodyaches. 10:56 The patient or guardian reports cough, that is intermittent, described as mild, flu kb symptoms, low-grade fever, myalgias. Onset: The symptoms/episode began/occurred 2 day(s) ago. Severity of symptoms: At their worst the symptoms were mild, moderate, in the emergency department the symptoms are unchanged. Modifying factors: The symptoms are alleviated by nothing, the symptoms are aggravated by nothing. Associated signs and symptoms: Pertinent positives: fever, rhinorrhea, Pertinent negatives: chest pain, diarrhea, ear ache, nausea, sore throat, vomiting. The patient has not experienced similar symptoms in the past. The patient has not recently seen a physician. Pt reports cough, fever, bodyaches, congestion and headache for 2 days. Exposed to covid recently. Historical: - Allergies: 10:38 NKA; iw - Immunization history:: Client reports having NOT received the Covid vaccine. ROS: 10:57 Abdomen/GI: Negative for abdominal pain, nausea, vomiting, diarrhea, and constipation. kb 10:57 Constitutional: Positive for body aches, chills, fatigue, fever, malaise. 10:57 ENT: Positive for rhinorrhea, sinus congestion. 10:57 Respiratory: Positive for cough, Negative for dyspnea on exertion, hemoptysis, orthopnea, pleurisy, shortness of breath, sputum production, wheezing. 10:57 Neuro: Positive for headache. 10:57 All other systems are negative. Exam: 10:57 Constitutional: This is a well developed, well nourished patient who is awake, alert, kb and in no acute distress. Head/Face: Normocephalic, atraumatic. ENT: Moist Mucous membranes Cardiovascular: Regular rate and rhythm with a normal S1 and S2. No gallops, murmurs, or rubs. No pulse deficits. Respiratory: Respirations even and unlabored. No increased work of breathing. Talking in full sentences Skin: Warm, dry with normal turgor. Normal color. MS/ Extremity: Pulses equal, no cyanosis. Neurovascular intact. Full, normal range of motion. Neuro: Awake and alert, GCS 15, oriented to person, place, time, and situation. Moves all extremities. Normal gait. Psych: Awake, alert, with orientation to person, place and time. Behavior, mood, and affect are within normal limits. Vital Signs: 10:38 BP 142 / 92; Pulse 100; Resp 18; Temp 97.2; Pulse Ox 100% on R/A; iw 10:39 Resp 16; Temp 97.2; Pulse Ox 100% on R/A; Weight 158.76 kg; Height 6 ft. 4 in. (193.04 iw cm); 10:39 BP 142 / 92; Pulse 71; iw 10:39 Body Mass Index 42.60 (158.76 kg, 193.04 cm) iw MDM: 10:39 Patient medically screened. kb 10:57 Data reviewed: vital signs, nurses notes. Data interpreted: Pulse oximetry: on room air kb is 100 %. Interpretation: normal. Counseling: I had a detailed discussion with the patient and/or guardian regarding: the historical points, exam findings, and any diagnostic results supporting the discharge/admit diagnosis, lab results, the need for outpatient follow up, a family practitioner, to return to the emergency department if symptoms worsen or persist or if there are any questions or concerns that arise at home. 09/14 10:38 Order name: COVID-19/FLU A+B (Document "Date of Onset" if Symptomatic); Complete Time: kb 12:07 Administered Medications: No medications were administered Disposition: 09/15 08:43 Co-signature as Attending Physician, Rik Harper MD I agree with the assessment and fortunato plan of care. Disposition Summary: 09/14/21 12:07 Discharge Ordered Location: Home kb Condition: Stable kb Diagnosis - Coronavirus infection, unspecified kb Followup: kb - With: Emergency Department - When: As needed - Reason: Worsening of condition Followup: kb - With: Private Physician - When: 2 - 3 days - Reason: Recheck today's complaints, Continuance of care, Re-evaluation by your physician Discharge Instructions: - Discharge Summary Sheet kb - Viral Respiratory Infection, [id number] kb - COVID-19 kb Forms: - Medication Reconciliation Form kb - Thank You Letter kb - Antibiotic Education kb - Prescription Opioid Use kb Signatures: Dispatcher [employer] Theresa Jones, ALTERATION INSPECTOR-C RAN-Rik Mcdowell MD MD cha Williams, Irene, RN RN iw
--- NOTE | 2021-09-14 12:08 | ER ---
Nurse's Notes [facility] Name: Nacho Lopez Age: 20 yrs Sex: Male : 2000 Arrival Date: 09/14/2021 Time: 10:01 Bed Waiting Private MD: Diagnosis: Coronavirus infection, unspecified Presentation: 09/14 10:38 Chief complaint: Patient states: PT EXPOSED TO COVID BY ROOMATE. iw 10:38 Method Of Arrival: Ambulatory iw 10:38 Acuity: KLAUS 4 iw Triage Assessment: 10:39 General: Appears in no apparent distress. iw Historical: - Allergies: 10:38 NKA; iw - Immunization history:: Client reports having NOT received the Covid vaccine. Vital Signs: 10:38 BP 142 / 92; Pulse 100; Resp 18; Temp 97.2; Pulse Ox 100% on R/A; iw 10:39 Resp 16; Temp 97.2; Pulse Ox 100% on R/A; Weight 158.76 kg; Height 6 ft. 4 in. (193.04 iw cm); 10:39 BP 142 / 92; Pulse 71; iw 10:39 Body Mass Index 42.60 (158.76 kg, 193.04 cm) iw ED Course: 10:01 Patient arrived in ED. am2 10:38 Theresa Gu FNP-C [facility]. kb 10:38 Rik Harper MD is Attending Physician. kb 10:38 Triage completed. iw 10:43 COVID-19/FLU A+B (Document "Date of Onset" if Symptomatic) Sent. iw 12:22 Kristina Al RN is Primary Nurse. iw Administered Medications: No medications were administered Outcome: 12:07 Discharge ordered by . kb 12:22 Patient left the ED. iw Signatures: Theresa Gu FNP-C INSPECTOR WIRE ROPE-Kristina Escobar, MICKY RN iw Shivani Billings am2
[2021-09-14 12:30] VITALS: BP 142/92; TEMP 97.2; O2SAT 100
== END 2021-09-14 12:22 | disposition home or self-care (01) ==
LOC: ER 10:00
DX: U07.1 COVID-19 (principal)
CPT/HCPCS: 0240U; 99283

== ENCOUNTER 2022-10-06 10:10 | Emergency (ER) | payer SELFPAY ==
--- OUTSIDE RECORDS SUMMARY | 2022-10-06 10:15 | XMS REPORT | Continuity of Care Document ---
:2000 Author Organization [facility] t Address [address] [place] [address] Care Team Providers Name Role Phone PCP, PATIENT DOES NOT HAVE A Primary Care Physician Unavaila Bipin Isaac DO Attending Clinician BIPIN PETERSON Attending Clinician Unavailable Doctor Unassigned, [place] Attending Clinician Unavailable Martha Al DO Attending Clinician Brian Bonner MD Attending Clinician ENRIQUE STRATTON Attending Clinician Unavailable Enrique Stratton MD Attending Clinician Lisa Monet Attending Clinician SUKUMAR KUMAR Attending Clinician Unavailable Sukumar Kumar MD Attending Clinician BIPIN PETERSON Admitting Clinician Unavailable ENRIQUE STRATTON Admitting Clinician Unavailable Enrique Stratton MD Admitting Clinician SUKUMAR KUMAR Admitting Clinician Unavailable Payers Payer Name Policy Type Policy Number Effective Date Expiration Date S jai COVID19 [facility] [id number] 2020 00:00:00 UNINSURED Problems Condition Condition Condition Status Onset Resolution Last Treating Co mments Source Name Details Category Date Date Treatment Clinician Date Obesity Obesity Disease Active 2020-0 Univers (BMI (BMI 5-03 ity of 30-39.9) 30-39.9) 00:00: [place] 00 Medical Branch Pneumomedi Pneumomedi Disease Active U nivers astinum astinum - ity of 00:00: [place] 00 [facility] Allergies, Adverse Reactions, Alerts Allergy Allergy Status Severity Reaction(s) Onset Inactive Treating Comm ents Source Name Type Date Date Clinician NO KNOWN Drug Active Univers ALLERGIE Class ity of S [facility] Social History Social Habit Start Date Stop Date Quantity Comments Source Exposure to 2021-12-20 2021-12-30 Not sure [facility] SARS-CoV-2 (event) 00:00:00 08:42:00 Medica l Branch Tobacco use and 2015-05-14 2015-05-14 Never used [facility] exposure 00:00:00 00:00:00 [facility] Sex Assigned At [birth year] [facility] 00:00:00 00:00:00 [facility] Smoking Status Start Date Stop Date Source Never smoker [facility] Medications Ordered Filled Start Stop Current Ordering Indication Dosage Frequency Signature Comments Components Source Medication Medication Date Date Medication? Clinician (SIG) Name Name iopamidol No [id number] 120mL 120 mL, Univers (ISOVUE 12-30 Intravenou ity o f 370-500 mL) 14:15: 14:15 s, ONCE, 1 [place] injection 00 :00 dose, On Medica l 120 mL Wed Branch 12/30/21 at 0915, Routine pantoprazol No 40mg 40 mg, Uni vers e 12-30 Slow IV ity of (PROTONIX) 13:45: 13:05 Push, [place] injection 00 :00 ONCE, 1 Medical 40 mg dose, On Branch 12/30/21 at 0845 ondansetron No 4mg 4 mg, Slow Univers (ZOFRAN 12-30 IV Push, ity of (PF)) 13:45: 13:04 ONCE, 1 [place] injection 4 00 :00 dose, On Medi ludwig mg Wed Branch 12/30/21 at 0845, Routine maalox:diph No 15mL 15 mL, Uni vers enhydrAMINE 4-20 04-20 Oral, ity of :lidocaine 13:45: 13:05 ONCE, 1 Manjinder as 2 % viscous 00 :00 dose, On Medi ludwig 1:1:1 Wed Branch (FIRST-MOUT 12/30/21 at [facility]) 0845, oral Routine suspension 15 mL NaCl 0.9% 2021- No 1000mL at 999 Uni vers (NS) bolus 4-20 04-20 mL/hr, ity of infusion 12:45: 14:14 1,000 mL, Manjinder as 1,000 mL 00 :00 IV Medical Infusion, Branch ONCE, 1 dose, On Tue12/30/21 at 0745, STAT sucralfate 0 Yes [id number] 1g Take 1 U nivers 1 gram 4-20 tablet by ity of tablet 00:00: mouth [place] 00 before Medical meals and Branch at bedtime. ondansetron Yes [id number] 4mg Take 1 Univers 4 mg 4-20 tablet by ity of disintegrat 00:00: mouth [place] ing tablet 00 every 8 Medica l (eight) Branch hours as needed for Nausea and Vomiting (N/V). pantoprazol Yes [id number] 40mg Take 1 Univers e 40 mg EC 4-20 tablet by ity of tablet 00:00: mouth [place] 00 daily. Medical Branch famotidine 0 Yes [id number] 20mg Take 1 U nivers 20 mg 8-02 tablet by ity of tablet 00:00: mouth 2 [place] 00 (two) Medical times Branch daily. famotidine 2019-0 Yes [id number] 20mg Take 1 U nivers 20 mg 8-02 tablet by ity of tablet 00:00: mouth 2 [place] 00 (two) Medical times Branch daily. ondansetron 2019-0 Yes [id number] 4mg Take 1 Univers 4 mg 8-02 tablet by ity of disintegrat 00:00: mouth [place] ing tablet 00 every 8 Medica l (eight) Branch hours as needed for Nausea and Vomiting (N/V). ondansetron 2019-0 2021- No [id number] 4mg Take 1 Univers 4 mg 8-02 04-20 tablet by ity of disintegrat 00:00: 00:00 [place] tablet 00 :00 every 8 Medica l (eight) Branch hours as needed for Nausea and Vomiting (N/V). lisinopril Yes [id number] 10mg Take 1 U nivers 10 mg 5-26 tablet by ity of tablet 00:00: mouth at [place] 00 bedtime. Medical Branch acetaminoph Yes [id number] 1{tbl} Take 1 Univers en-codeine 5-26 tablet by ity of (TYLENOL-CO 00:00: mouth [place] DEINE #3) 00 every 4 Medical 300-30 mg (four) Branch tablet hours as needed for Pain (scale 7-10). nitroglycer Yes [id number] .4mg Place 1 Univers in 0.4 mg 5-26 tablet ity of sublingual 00:00: [place] tablet 00 tongue Medical every 5 Branch (five) minutes as needed for Chest pain. lisinopril Yes [id number] 10mg Take 1 U nivers 10 mg 5-26 tablet by ity of tablet 00:00: mouth at [place] 00 bedtime. Medical Branch acetaminoph Yes [id number] 1{tbl} Take 1 Univers en-codeine 5-26 tablet by ity of (TYLENOL-CO 00:00: mouth [place] DEINE #3) 00 every 4 Medical 300-30 mg (four) Branch tablet hours as needed for Pain (scale 7-10). nitroglycer 2021- No [id number] .4mg Place 1 Univers in 0.4 mg 5-26 04-20 tablet ity of sublingual 00:00: 00:00 under the [place] tablet 00 :00 tongue Medical every 5 Branch (five) minutes as needed for Chest pain. ibuprofen Yes 400mg Take 2 Unive rs (MOTRIN IB) 3-08 tablets by it y of 200 mg 00:00: mouth [place] tablet 00 every 6 Medical (six) Branch hours as needed for Pain (scale 1-3) for up to 30 doses. acetaminoph Yes 500mg Take 1 Uni vers en (TYLENOL 3-08 tablet by ity of EXTRA 00:00: mouth [place] STRENGTH) 00 every 6 Medical 500 mg (six) Branch tablet hours as needed for Pain for up to 20 doses. ibuprofen 0 Yes 400mg Take 2 Unive rs (MOTRIN IB) 3-08 tablets by it y of 200 mg 00:00: mouth [place] tablet 00 every 6 Medical (six) Branch hours as needed for Pain (scale 1-3) for up to 30 doses. acetaminoph Yes 500mg Take 1 Uni vers en (TYLENOL 3-08 tablet by ity of EXTRA 00:00: mouth [place] STRENGTH) 00 every 6 Medical 500 mg (six) Branch tablet hours as needed for Pain for up to 20 doses. ondansetron Yes 4mg Take 1 Univ ers 4 mg 3-08 tablet by ity of disintegrat 00:00: mouth [place] ing tablet 00 every 8 Medica l (eight) Branch hours as needed for Nausea and Vomiting (N/V) for up to 10 doses. ondansetron 2021- No 4mg Take 1 Uni vers 4 mg 3-08 04-20 tablet by ity of disintegrat 00:00: 00:00 [place] tablet 00 :00 every 8 Medica l (eight) Branch hours as needed for Nausea and Vomiting (N/V) for up to 10 doses. Pantoprazol Yes 40mg Take 40 mg Univers e 3-02 by mouth ity of (PROTONIX) 00:00: daily. [place] 40 mg 00 Medical delayed-rel Branch ease suspension sucralfate Yes 1g Take 1 Unive rs 1 gram 3-02 tablet by ity of tablet 00:00: mouth [place] 00 before Medical meals and Branch at bedtime. Pantoprazol 2021- No 40mg Take 40 mg Univers e 3-02 04-20 by mouth ity of (PROTONIX) 00:00: 00:[place]. [place] 40 mg 00 :00 Medical delayed-rel Branch ease suspension sucralfate 2021- No 1g Take 1 Univ ers 1 gram 3-02 04-20 tablet by ity of tablet 00:00: 00:00 mouth [place] 00 :00 before Medical meals and Branch at bedtime. Immunizations Ordered Immunization Filled Immunization Date Status Commen ts Source Name Name Meningococcal 2017-03-04 Completed University of Polysaccharide 00:00:00 [facility] (groups A, C, Y and Branc h W-135) conjugate vaccine (MCV4P) Meningococcal 2017-03-04 Completed University of Polysaccharide 00:00:00 [facility] (groups A, C, Y and Branc h W-135) conjugate vaccine (MCV4P) HEPATITIS A 2013-03-21 Completed University of 00:00:00 [facility] HPV 2013-03-21 Completed University of 00:00:00 [facility] HEPATITIS A 2013-03-21 Completed University of 00:00:00 [facility] HPV 2013-03-21 Completed University of 00:00:00 [facility] HPV 2012-05-24 Completed University of 00:00:00 [facility] HPV 2012-05-24 Completed University of 00:00:00 [facility] TDAP (ADACEL) VACCINE 2011-06-02 Completed Uni versity of 00:00:00 [facility] HEPATITIS A 2011-06-02 Completed University of 00:00:00 [facility] HPV 2011-06-02 Completed University of 00:00:00 [facility] Meningococcal 2011-06-02 Completed University of Polysaccharide 00:00:00 [place] [facility] (groups A, C, Y and Branc h W-135) conjugate vaccine (MCV4P) Varicella 2011-06-02 Completed University of (varivax)(chicken 00:00:00 [place] [facility] pox) Branch TDAP (ADACEL) VACCINE 2011-06-02 Completed Uni versity of 00:00:00 [facility] HEPATITIS A 2011-06-02 Completed University of 00:00:00 [facility] HPV 2011-06-02 Completed University of 00:00:00 [facility] Meningococcal 2011-06-02 Completed University of Polysaccharide 00:00:00 [facility] [place] ludwig (groups A, C, Y and Branc h W-135) conjugate vaccine (MCV4P) Varicella 2011-06-02 Completed University of (varivax)(chicken 00:00:00 [place] [facility] pox) Branch Influenza Virus 2009-12-06 Completed Universit y of Vaccine 00:00:00 [facility] Influenza Virus 2009-12-06 Completed Universit y of Vaccine 00:00:00 [facility] DTAP 2003-11-05 Completed University of 00:00:00 [facility] MMR 2003-11-05 Completed University of 00:00:00 [facility] Polio (IPV/OPV) 2003-11-05 Completed Universit y of 00:00:00 [facility] DTAP 2003-11-05 Completed University of 00:00:00 [facility] MMR 2003-11-05 Completed University of 00:00:00 [facility] Polio (IPV/OPV) 2003-11-05 Completed Universit y of 00:00:00 [facility] DTAP 2001-01-07 Completed University of 00:00:00 [facility] HIB 4 Dose Schedule 2001-01-07 Completed Unive rsity of 00:00:00 [facility] Pneumococcal 13 2001-01-07 Completed Universit y of Conjugate, PCV13 00:00:00 [place] [facility] (Prevnar 13) Branch DTAP 2001-01-07 Completed University of 00:00:00 [facility] HIB 4 Dose Schedule 2001-01-07 Completed Unive rsity of 00:00:00 [facility] Pneumococcal 13 2001-01-07 Completed Universit y of Conjugate, PCV13 00:00:00 [facility] dical (Prevnar 13) Branch MMR 2000-11-09 Completed University of 00:00:00 [facility] Varicella 2000-11-09 Completed University of (varivax)(chicken 00:00:00 [place] [facility] pox) Branch MMR 2000-11-09 Completed University of 00:00:00 [facility] Varicella 2000-11-09 Completed University of (varivax)(chicken 00:00:00 [place] [facility] pox) Branch Hep B, Adol or Pedi 2000-10-20 Completed Unive rsity of Dosage 00:00:00 [facility] Hep B, Adol or Pedi 2000-10-20 Completed Unive rsity of Dosage 00:00:00 [facility] Polio (IPV/OPV) 2000-07-08 Completed Universit y of 00:00:00 [facility] Polio (IPV/OPV) 2000-07-08 Completed Universit y of 00:00:00 [facility] HIB 4 Dose Schedule 2000-05-12 Completed Unive rsity of 00:00:00 [facility] HIB 4 Dose Schedule 2000-05-12 Completed Unive rsity of 00:00:00 [facility] Hep B, Adol or Pedi 2000-04-24 Completed Unive rsity of Dosage 00:00:00 [facility] Hep B, Adol or Pedi 2000-04-24 Completed Unive rsity of Dosage 00:00:00 [facility] DTAP 2000-04-14 Completed University of 00:00:00 [facility] DTAP 2000-04-14 Completed University of 00:00:00 [place] [facility] DTAP 2000-02-10 Completed University of 00:00:00 [place] [facility] HIB 4 Dose Schedule 2000-02-10 Completed Unive rsity of 00:00:00 [place] [facility] Polio (IPV/OPV) 2000-02-10 Completed Universit y of 00:00:00 [place] [facility] DTAP 2000-02-10 Completed University of 00:00:00 [place] [facility] HIB 4 Dose Schedule 2000-02-10 Completed Unive rsity of 00:00:00 [place] [facility] Polio (IPV/OPV) 2000-02-10 Completed Universit y of 00:00:00 [place] [facility] DTAP 1999 Completed University of 00:00:00 [facility] Branch HIB 4 Dose Schedule 1999 Completed Unive rsity of 00:00:00 [facility] Branch Hep B, Adol or Pedi 1999 Completed Unive rsity of Dosage 00:00:00 [facility] Branch Polio (IPV/OPV) 1999 Completed Universit y of 00:00:00 [place] [facility] DTAP 1999 Completed University of 00:00:00 [place] [facility] HIB 4 Dose Schedule 1999 Completed Unive rsity of 00:00:00 [place] [facility] Hep B, Adol or Pedi 1999 Completed Unive rsity of Dosage 00:00:00 [facility] Branch Polio (IPV/OPV) 1999 Completed Universit y of 00:00:00 [facility] Vital Signs Vital Name Observation Time Observation Value Comments Source Systolic blood 2021-12-30 12:36:52 169 mm[Hg] Univer sity of pressure [facility] Diastolic blood 2021-12-30 12:36:52 103 mm[Hg] Unive rsity of pressure [facility] Heart rate 2021-12-30 12:33:00 89 /min [facility] Body temperature 2021-12-30 12:33:00 37.28 Denise [facility] [place] [facility] Res[facility] rate 2021-12-30 12:33:00 18 /min [facility] Body height 2021-12-30 12:33:00 190.5 cm [facility] Body weight 2021-12-30 12:33:00 154.223 kg Universi ty [facility] BMI 2021-12-30 12:33:00 42.50 kg/m2 [facility] Oxygen saturation in 2021-12-30 12:33:00 98 /min University Arterial blood by [facility] Pulse oximetry Branch Procedures Procedure Date / Time Performed Performing Clinician Sourc e CT ABDOMEN PELVIS W 2021-12-30 13:05:27 Bipin Peterson [facility] CONTRAST [facility] LIPASE 2021-12-30 12:50:00 Singer [facility] COMP. METABOLIC PANEL 2021-12-30 12:50:00 Bipin Peterson [facility] [place] [facility] [place] [facility] ([id number]) [facility] CBC WITH DIFF 2021-12-30 12:50:00 Peterson, [facility] URINALYSIS 2021-12-30 12:50:00 [place] [facility] NOTICE OF PRIVACY 2021-12-30 12:30:03 Doctor Unassigned, No Univ ersity [facility] PRACTICES Name [facility] CONSENT/REFUSAL FOR 2021-12-30 12:29:44 Doctor Unassigned, No [facility]3] TREATMENT Encounters Start End Encounter Admission Attending Care Care Encounter Source Date/Time Date/Time Type Type Clinicians Facility Department ID 2021-07-12 Emergency [facility] [id number] Univers [facility] 2021-07-10 Emergency [facility] [id number] Univers 10:15:11 [facility] 2021-12-30 2021-12-30 [facility] [id number] Univers 07:37:00 09:20:00 Bipin [place] [id number] i ty [facility] [id number] [facility] [id number] [facility] 084 Branch 2021-12-30 2021-12-30 Emergency X [facility] ERT [id number] Univers 07:37:00 09:20:00 BIPIN hall [facility] 2021-12-30 2021-12-30 Orders Doctor BROOKS [id number] Univers 00:00:00 00:00:00 Only Unassigned, CRISTOBAL [id number] ity of [place] [facility] [id number] [facility] [id number] [address] 2020-12-12 2020-12-12 Emergency [facility] [id number] 09:36:00 10:28:00 Martha Valle[place] [id number] [place] [id number] [place] [id number] 2020-12-12 2020-12-12 Orders Doctor BROOKS [id number] 00:00:00 00:00:00 Only Unassigned, [place] [id number] [place] [facility] 4.2.7.2.686 [id number] 2020-04-13 2020-04-13 Emergency Bonner, [place] [id number] 12:58:00 16:44:00 [facility] [id number] [id number] [id number] 2020-02-01 2020-02-01 Outpatient R VIRAL [facility] [id number] Univers 13:30:00 13:30:00 [facility] 2020-02-01 2020-02-01 Telemedici BRENDA Stratton [id number] 07:32:27 07:47:27 ne [facility] [id number] [facility] [id number] [id number] 2020-01-31 2020-01-31 Outpatient R [facility] [id number] Univers 13:00:00 [facility]:00[facility] 2020-01-12 2020-01-13 Outpatient X VIRAL [facility] SCT [id number] Univers 11:38:28 13:59:00 [facility] 2020-01-12 2020-01-13 Emergency Lisa Roberts [id number]. [id number] 11:38:28 13:59:00 Enrique Stratton [id number] [facility] [id number] [id number] 2019-12-31 2019-12-31 Emergency X SHARON KUMAR ERT [id number] Univers 00:44:11 02:52:00 SUKUMAR hall [facility] 2019-12-31 2019-12-31 Emergency Stacy [facility] [id number] 00:44:11 02:52:00 Sukumar Valle[place] [id number] [place] [id number] [place] [id number] Results Test Description Test Time Test Comments Results Result Comments Source CBC WITH DIFF 2021-12-30 13:30:01 Test Item Value Reference Range Interpretation Comme nts WBC (test code = 6690-2) See_Comment H [A utomated message] The system which ge nerated this result transmit rere reference range: 4.20 - 1 0.70 10*3/?L. The reference r zeke was not used to interpr et this result as normal/abnor mal. RBC (test code = 789-8) See_Comment H [Au tomated message] The system which ge nerated this result transmit rere reference range: 4.26 - 5 .52 10*6/?L. The reference r zeke was not used to interpr et this result as normal/abnor mal. HGB (test code = 718-7) 16.0 g/dL 12.2-16.4 HCT (test code = 4544-3) 47.2 % 38.4-49.3 MCV (test code = 787-2) 78.7 fL 81.7-95.6 L MCH (test code = 785-6) 26.7 pg 26.1-32.7 MCHC (test code = 786-4) 33.9 g/dL 31.2-35.0 RDW-SD (test code = 12923-2) 37.3 fL 38.5-51.6 L RDW-CV (test code = 788-0) 13.2 % 12.1-15.4 PLT (test code = 777-3) See_Comment H [Au tomated message] The system which ge nerated this result transmit rere reference range: 150 - 32 8 10*3/?L. The reference range was not used to interpret th is result as normal/abnormal . MPV (test code = 39140-2) 10.1 fL 9.8-13.0 NRBC/100 WBC (test code = See_Comment [ Automated message] The [id number]) system which ge nerated this result transmit rere reference range: 0.0 - 10 .0 /100 WBCs. The reference r zeke was not used to interpr et this result as normal/abnor mal. NRBC x10^3 (test code = <0.01 See_Comment [Au tomated message] The 6721412554) system which ge nerated this result transmit rere reference range: 10*3/?L. The reference range was not u sed to interpret this result as normal/abnormal . GRAN MAT (NEUT) % (test code 75.1 % = 770-8) IMM GRAN % (test code = 0.40 % 5877603535) LYMPH % (test code = 736-9) 17.1 % MONO % (test code = 5905-5) 6.8 % EOS % (test code = 713-8) 0.4 % BASO % (test code = 706-2) 0.2 % GRAN MAT x10^3(ANC) (test 8.43 10*3/uL 1.99-6.95 H code = 6905051393) IMM GRAN x10^3 (test code = 0.04 10*3/uL 0.00-0.06 8276761754) LYMPH x10^3 (test code = 1.92 10*3/uL 1.09-3.23 731-0) MONO x10^3 (test code = 0.76 10*3/uL 0.36-1.02 742-7) EOS x10^3 (test code = 0.04 10*3/uL 0.06-0.53 L 711-2) BASO x10^3 (test code = <0.03 0.01-0.09 704-7) Lab Interpretation (test Abnormal code = 02328-9) [facility] ([id number])2021-12-30 13:28:00 Test Item Value Reference Range Interpretation Comments NA (test code = 138 mmol/L 135-145 0938396780) K (test code = 4.5 mmol/L 3.5-5.0 3904567512) CL (test code = 99 mmol/L 98-108 1579488672) CO2 TOTAL (test code = 21 mmol/L 23-31 L 3367290130) AGAP (test code = 2-16 H 4015671684) BUN (test code = 16 mg/dL 7-23 9951611929) GLUCOSE (test code = 121 mg/dL 70-110 H 8721967059) CREATININE (test code = 0.93 mg/dL 0.60-1.25 5117217451) TOTAL BILI (test code = 1.3 mg/dL 0.1-1.1 H 4055279221) CALCIUM (test code = 9.9 mg/dL 8.6-10.6 3910018781) T PROTEIN (test code = 10.1 g/dL 6.3-8.2 H 8860649342) ALBUMIN (test code = 5.6 g/dL 3.5-5.0 H 4495977048) ALK PHOS (test code = 79 U/L 34-122 7310210386) ALTv (test code = 38 U/L 5-50 1742-6) AST(SGOT) (test code = 37 U/L 13-40 6098939439) eGFR (test code = mL/min/1.73m2 6420215173) CECI (test code = CECI) Association of Glomerular Filtration Rate (GFR) and Staging of Kidney Disease* + --+ --+ ------+| GFR (mL/min/1.73 m2) ?| With Kidney Damage ?| ?Without Kidney Damage+ --------+ --------+ +| ?>90 ?| ?Stage one ?| ? Normal ?+ ---+ ---+ -------+| ?60-89 ?| ?Stage two ?| ? Decreased GFR ? + --+ --+ ------+| ?30-59 ?| ?Stage three ?| ? Stage three ? + --+ --+ ------+| ?15-29 ?| ?Stage four ? | ? Stage four ?+ ---+ ---+ -------+| ?<15 (or dialysis) ? ?| ?Stage five ? | ? Stage five ?+ ---+ ---+ -------+ *Each stage assumes the associated GFR level has been in effect for at least three months. ?Stages 1 to 5, with or without kidney disease, indicate chronic kidney disease. Notes: Determination of stages one and two (with eGFR >59mL/min/1.73 m2) requires estimation of kidney damage for at least three months as defined by structural or functional abnormalities of the kidney, manifested by either:Pathological abnormalities or Markers of kidney damage (including abnormalities in the composition of the blood or urine or abnormalities in imaging tests). Lab Interpretation Abnormal (test code = 97037-6) [facility]27[facility]38 Test Item Value Reference Range Interpretation Comments LIPASE (test code = 6713424114) 194 U/L 0-220 Lab Interpretation (test code = Normal 88546-7) [facility]"
[2022-10-06] MEDS ORDERED: LIDOCAINE VISCOUS 2% SOLN 15 ML UDC ONE ×2 (10:43→13:55)
[2022-10-06] MEDS ORDERED: MAGNES/ALUMIN/SIMET 30ML UCUP ONE ×2 (10:43→13:54)
[2022-10-06] MEDS ORDERED: ONDANSETRON 4 MG/2 ML VIAL ONE ×2 (10:43→13:37)
[2022-10-06] MEDS ORDERED: PANTOPRAZOLE 40 MG INJ ONE (10:43)
[2022-10-06] MEDS ORDERED: NA CHLORIDE 0.9% 2,000 ML ONE (10:43)
[2022-10-06 10:58] LABS: Hematocrit 44.5 % (39.6-49.0); Lymphocytes % 29.4 % (15.3-44.8); MPV 7.4 fL (7.6-11.3); RBC Red Blood Cell Count 5.63 M/uL (4.33-5.43)
[2022-10-06 11:35] LABS: Albumin 4.2 g/dL (3.4-5.0); Bilirubin Total 0.5 mg/dL (0.2-1.0); Protein, Total 8.6 g/dL (6.4-8.2); Troponin High Sensitivity 13.8 pg/mL (<58.9)
[2022-10-06 11:43] LABS: Potassium 2.9 mmol/L (3.5-5.1)
--- NOTE | 2022-10-06 12:02 | RAD REPORT ---
EXAM DESCRIPTION: CT - Abdomen Pelvis W Contrast - 10/06/2022 11:47 am CLINICAL HISTORY: Abdominal pain COMPARISON: 2016 TECHNIQUE: Computed axial tomography of the abdomen pelvis was obtained. 100 cc Isovue-300 was admin istered intravenously. Oral contrast was not requested which limits evaluation of bowel and appendix All CT scans are performed using dose optimization technique as appropriate and may include automated exposure control or mA/KV adjustment according to patient size. FINDINGS: The liver, spleen, pancreas, adrenal and kidneys appear unremarkable. There is no evidence of diverticulitis. Normal appendix. Tiny umbilical hernia IMPRESSION: No acute abnormality is displayed.
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
[2022-10-06] MEDS ORDERED: POTASSIUM CL SA 10 MEQ TAB PO ONE (12:24)
--- NOTE | 2022-10-06 13:51 | ER ---
Nurse's Notes [facility] Name: Nacho Lopez Age: 21 yrs Sex: Male : 2000 Arrival Date: 10/06/2022 Time: 10:14 Bed 8 Private MD: Diagnosis: Nausea with vomiting, unspecified;Dehydration;Hypokalemia Presentation: 10/06 10:22 Chief complaint: Patient states: vomiting and not eating since Tuesday, passed out at iw home, near syncope at registration desk. Coronavirus screen: Client presents with at least one sign or symptom that may indicate coronavirus-19. Ebola Screen: Patient negative for fever greater than or equal to 101.5 degrees Fahrenheit, and additional compatible Ebola Virus Disease symptoms Patient denies exposure to infectious person. Patient denies travel to an Ebola-affected area in the 21 days before illness onset. No symptoms or risks identified at this time. Initial Sepsis Screen: Does the patient meet any 2 criteria? No. Patient's initial sepsis screen is negative. Does the patient have a suspected source of infection? No. Patient's initial sepsis screen is negative. Risk Assessment: Do you want to hurt yourself or someone else? Patient reports no desire to harm self or others. Onset of symptoms was October 04, 2022. 10:22 Method Of Arrival: Wheelchair 10:22 Acuity: KLAUS 2 iw Triage Assessment: 10:28 General: Appears uncomfortable, obese, well groomed, well developed, Behavior is calm, jh5 cooperative, appropriate for age. Pain: Complains of pain in chest and abdomen. Historical: - Allergies: 10:23 NKA; iw - PMHx: 10:23 GERD; iw - Immunization history:: Adult Immunizations up to date. - Social history:: Smoking status: Reported history of juuling and/or vaping. - Family history:: not pertinent. Screenin:29 [facility] ED Fall Risk Assessment (Adult) History of falling in the last 3 months, jh5 including since admission No falls in past 3 months (0 pts) Confusion or Disorientation No (0 pts) Intoxicated or Sedated No (0 pts) Impaired Gait No (0 pts) Mobility Assist Device Used No (0 pt) Altered Elimination No (0 pt) Score/Fall Risk Level 0 - 2 = Low Risk. Abuse screen: Denies threats or abuse. Denies injuries from another. Nutritional screening: No deficits noted. Tuberculosis screening: No symptoms or risk factors identified. Vital Signs: 10:28 BP 128 / 90; Pulse 93; Resp 18; Temp 98.6; Pulse Ox 100% ; Weight 158.76 kg; Height 6 [facility] ft. 3 in. (190.50 cm); Pain 4/10; 12:07 BP 129 / 81; Pulse 88; Resp 18; Pulse Ox 100% ; jh5 10:28 Body Mass Index 43.75 (158.76 kg, 190.50 cm) 5 ED Course: 10:14 Patient arrived in ED. am2 10:17 Riley Souza MD is Attending Physician. rt 10:23 Triage completed. iw 10:23 Arm band placed on. iw 10:29 Patient has correct armband on for positive identification. Bed in low position. Call [facility] light in reach. Side rails up X2. 10:29 No provider procedures requiring assistance completed. jh5 11:48 CT Head Brain wo Cont In Process Unspecified. EDMS 11:48 CT Abd/Pelvis - IV Contrast Only In Process Unspecified. EDMS 13:56 IV discontinued, intact, bleeding controlled, No redness/swelling at site. Pressure 5 dressing applied. Administered Medications: 10:55 Drug: ProTONIX (pantoprazole) 40 mg Route: IVP; Site: right antecubital; 5 10:55 Drug: GI Cocktail without - (Maalox Suspension 30 ml, Lidocaine Liquid 2 % 15 jh5 ml) Route: PO; 10:56 Drug: Zofran (Ondansetron) 8 mg Route: IVP; Site: right antecubital; 5 10:57 Drug: NS 0.9% 2000 ml Route: IV; Rate: 1 bolus; Site: right antecubital; jh5 12:23 Drug: Potassium Chloride 40 mEq Route: PO; jh5 13:53 Drug: GI Cocktail without - (Maalox Suspension 30 ml, Lidocaine Liquid 2 % 15 jh5 ml) Route: PO; Medication: 10:30 VIS not applicable for this client. 5 Outcome: 13:51 Discharge ordered by MD. rt 13:56 Discharged to home ambulatory. 5 13:56 Condition: good 13:56 Discharge instructions given to patient, Instructed on discharge instructions, follow up and referral plans. medication usage, safety practices, Demonstrated understanding of instructions, follow-up care, medications, Prescriptions given X 2. 13:56 Patient left the ED. 5 Signatures: Dispatcher [employer] EDKristina Okeefe, Shivani Bee RN, Jessica, RN RN jh5 Riley Souza MD MD rt
--- NOTE | 2022-10-06 13:51 | EDPHYS ---
Physician Documentation [facility] Name: Nacho Lopez Age: 21 yrs Sex: Male : 2000 Arrival Date: 10/06/2022 Time: 10:14 Bed 8 Private MD: ED Physician Riley Souza HPI: 10/06 11:41 This 21 yrs old Male presents to ER via Wheelchair with complaints of Near Syncope, rt Passed Out Prior To Arrival. 11:41 The patient has experienced syncope, lost consciousness. Patient presents to the ED rt with nausea, vomiting since Tuesday. Patient has not been able to tolerate anything by mouth. He states he became lightheaded throughout that time, had a syncopal event today in which she states that the back of his head. He reports an epigastric pain. Denies other acute complaints at this time, symptoms are moderate in severity, no other aggravating or alleviating factors.. Historical: - Allergies: 10:23 NKA; iw - PMHx: 10:23 GERD; iw - Immunization history:: Adult Immunizations up to date. - Social history:: Smoking status: Reported history of juuling and/or vaping. - Family history:: not pertinent. ROS: 11:41 Constitutional: Negative for fever, chills, and weight loss, Eyes: Negative for injury, rt pain, redness, and discharge, ENT: Negative for injury, pain, and discharge, Neck: Negative for injury, pain, and swelling, Respiratory: Negative for shortness of breath, cough, wheezing, and pleuritic chest pain, MS/Extremity: Negative for injury and deformity, Skin: Negative for injury, rash, and discoloration, Psych: Negative for depression, anxiety, suicide ideation, homicidal ideation, and hallucinations. 11:41 Cardiovascular: Positive for chest pain, Negative for edema. 11:41 Abdomen/GI: Positive for abdominal pain, nausea and vomiting. 11:41 Neuro: Positive for syncope, Negative for altered mental status. Exam: 11:41 Constitutional: This is a well developed, well nourished patient who is awake, alert, rt and in no acute distress. Head/Face: Normocephalic, atraumatic. Neck: Trachea midline, no thyromegaly or masses palpated, and no cervical lymphadenopathy. Supple, full range of motion without nuchal rigidity, or vertebral point tenderness. No Meningismus. Chest/axilla: Normal chest wall appearance and motion. Nontender with no deformity. No lesions are appreciated. Cardiovascular: Regular rate and rhythm with a normal S1 and S2. No gallops, murmurs, or rubs. Normal PMI, no JVD. No pulse deficits. Respiratory: Lungs have equal breath sounds bilaterally, clear to auscultation and percussion. No rales, rhonchi or wheezes noted. No increased work of breathing, no retractions or nasal flaring. Skin: Warm, dry with normal turgor. Normal color with no rashes, no lesions, and no evidence of cellulitis. MS/ Extremity: Pulses equal, no cyanosis. Neurovascular intact. Full, normal range of motion. Neuro: Awake and alert, GCS 15, oriented to person, place, time, and situation. Cranial nerves II-XII grossly intact. Motor strength 5/5 in all extremities. Sensory grossly intact. Cerebellar exam normal. Normal gait. Psych: Awake, alert, with orientation to person, place and time. Behavior, mood, and affect are within normal limits. 11:41 ENT: Dry mucous membranes. 11:41 ECG was reviewed by the Attending Physician. 11:41 Abdomen/GI: Mild epigastric tenderness without rebound, guarding, distention. Vital Signs: 10:28 BP 128 / 90; Pulse 93; Resp 18; Temp 98.6; Pulse Ox 100% ; Weight 158.76 kg; Height 6 jh5 ft. 3 in. (190.50 cm); Pain 4/10; 12:07 BP 129 / 81; Pulse 88; Resp 18; Pulse Ox 100% ; jh5 10:28 Body Mass Index 43.75 (158.76 kg, 190.50 cm) jh5 MDM: 10:27 Patient medically screened. rt 13:59 Differential Diagnosis: Dysrhythmia, electrolyte disturbance, nausea, vomiting, rt appendicitis, head closed head injury. Data reviewed: vital signs, nurses notes, lab test result(s), EKG, radiologic studies. I considered the following discharge prescriptions or medication management in the emergency department Medications were administered in the Emergency Department. See MAR. Test considered but Not performed: Ultrasound No focal right upper quadrant tenderness. Care significantly affected by the following chronic conditions: Acid reflux. Response to treatment: the patient's symptoms have markedly improved after treatment. 01/25 10:29 Order name: CBC with Diff; Complete Time: 11:44 rt 10/06 10:29 Order name: CMP; Complete Time: 11:44 rt 10/06 10:29 Order name: Magnesium; Complete Time: 11:44 rt 10/06 10:29 Order name: Lipase; Complete Time: 11:44 rt 10/06 10:29 Order name: Troponin High Sensitivity; Complete Time: 11:44 rt 10/06 10:29 Order name: CT Head Brain wo Cont; Complete Time: 12:04 rt 10/06 10:29 Order name: EKG; Complete Time: 10:30 rt 10/06 10:29 Order name: CT Abd/Pelvis - IV Contrast Only; Complete Time: 12:04 rt 10/06 10:29 Order name: EKG - Nurse/Tech; Complete Time: 10:57 rt EC:41 Rate is 78 beats/min. Rhythm is regular, Normal Sinus Rhythm with No ectopy. QRS [place] rt is Normal. CA interval is normal. QRS interval is normal. QT interval is normal. No Q waves. T waves are Normal. No ST changes noted. Clinical impression: Normal ECG. Interpreted by me. Administered Medications: 10:55 Drug: ProTONIX (pantoprazole) 40 mg Route: IVP; Site: right antecubital; 5 10:55 Drug: GI Cocktail without - (Maalox Suspension 30 ml, Lidocaine Liquid 2 % 15 jh5 ml) Route: PO; 10:56 Drug: Zofran (Ondansetron) 8 mg Route: IVP; Site: right antecubital; 5 10:57 Drug: NS 0.9% 2000 ml Route: IV; Rate: 1 bolus; Site: right antecubital; 5 12:23 Drug: Potassium Chloride 40 mEq Route: PO; jh5 13:53 Drug: GI Cocktail without - (Maalox Suspension 30 ml, Lidocaine Liquid 2 % 15 jh5 ml) Route: PO; Disposition Summary: 10/06/22 13:51 Discharge Ordered Location: Home rt Problem: new rt Symptoms: have improved rt Condition: Stable rt Diagnosis - Nausea with vomiting, unspecified rt - Dehydration rt - Hypokalemia rt Followup: rt - With: Private Physician - When: 2 - 3 days - Reason: Discharge Instructions: - Discharge Summary Sheet rt - Dehydration, Adult rt - Nausea and Vomiting, Adult rt - Hypokalemia rt Forms: - Medication Reconciliation Form rt - Thank You Letter rt - Antibiotic Education rt - Prescription Opioid Use rt Prescriptions: - ondansetron 4 mg Oral - take 4 milligrams by SUBLINGUAL route every 4 hours; 18 tablet; Refills: 0, rt Product Selection Permitted - Carafate 1 gram Oral Tablet - take 1 tablet by ORAL route 4 times per day; 30 tablet; Refills: 0, Product rt Selection Permitted Signatures: Dispatcher [employer] Kristina Spears RN RN iw Prachi Larios RN RN jh5 Riley Souza MD MD rt
[2022-10-06 14:01] VITALS: TEMP 98.6; O2SAT 100
[2022-10-06 14:02] VITALS: BP 129/81
== END 2022-10-06 13:56 | disposition home or self-care (01) ==
LOC: ER 10:10
DX: E86.0 Dehydration (principal); E87.6 Hypokalemia
CPT/HCPCS: 36415; 70450; 74177; 80053; 83690; 83735; 84484; 85025; C9113; J2405; J7030; Q9967

== ENCOUNTER 2023-01-11 08:13 | Emergency (ER) | payer SELFPAY ==
--- OUTSIDE RECORDS SUMMARY | 2023-01-11 08:17 | XMS REPORT | Continuity of Care Document ---
:2000 Author Organization [facility] t Address [address] [facility] [address] [place] [address] Care Team Providers Name Role Phone PCP, PATIENT DOES NOT HAVE A Primary Care Physician Unavaila Bipin Isaac DO Attending Clinician BIPIN PETERSON Attending Clinician Unavailable Doctor Unassigned, [place] Attending Clinician Unavailable Martha Al DO Attending [...] Effective Date Expiration Date S jai COVID19 [facility] [id number] 2020 00:00:00 UNINSURED Problems Condition Condition Condition Status Onset Resolution Last Treating Co mments Source Name Details Category Date Date Treatment Clinician Date Obesity Obesity Disease Active 2020-0 Univers (BMI (BMI 5-03 ity of 30-39.9) 30-39.9) 00:00: [place] 00 Medical Branch Pneumomedi Pneumomedi Disease Active U nivers astinum astinum - ity of 00:00: [place] 00 [facility] Allergies, Adverse Reactions, Alerts Allergy Allergy Status Severity Reaction(s) Onset Inactive Treating Comm ents Source Name Type Date Date Clinician NO KNOWN Drug Active Univers ALLERGIE Class ity of S [facility] Social History Social Habit Start Date Stop Date Quantity Comments Source Exposure to 2021-12-20 2021-12-30 Not sure [facility] SARS-CoV-2 (event) 00:00:00 08:42:00 Medica l Branch Tobacco use and 2015-05-14 2015-05-14 Never used [facility] exposure 00:00:00 00:00:00 [facility] Sex Assigned At [birth year] [facility] 00:00:00 00:00:00 [facility] Smoking Status Start Date Stop Date Source Never smoker [facility] Medications Ordered Filled Start Stop Current Ordering Indication Dosage Frequency Signature Comments Components Source Medication Medication Date Date Medication? Clinician (SIG) Name Name iopamidol No [id number] 120mL 120 mL, Univers (ISOVUE 12-30 Intravenou [...] ludwig 1:1:1 Wed Branch (FIRST-MOUT 12/30/[address] [facility]) 0845, oral Routine suspension 15 mL NaCl 0.9% 2021- No 1000mL at 999 Uni vers (NS) bolus 4-20 04-20 mL/hr, ity of infusion 12:45: 14:14 1,000 mL, Manjinder as 1,000 mL 00 :00 IV Medical Infusion, Branch ONCE, 1 dose, On Tue12/30/21 at 0745, STAT sucralfate 0 Yes [id number] 1g Take 1 U nivers 1 gram 4-20 tablet by ity of tablet 00:00: mouth [place] 00 before Medical meals and Branch at bedtime. ondansetron Yes [id number] 4mg Take 1 Univers 4 mg 4-20 tablet by ity of disintegrat 00:00: mouth [place] ing tablet 00 every 8 Medica l (eight) Branch hours as needed for Nausea and Vomiting (N/V). pantoprazol Yes [id number] 40mg Take 1 Univers e 40 mg EC 4-20 tablet by ity of tablet 00:00: mouth [place] 00 daily. Medical Branch famotidine 0 Yes [id number] 20mg Take 1 U nivers 20 mg 8-02 tablet by ity of tablet 00:00: mouth 2 [place] 00 (two) Medical times Branch daily. famotidine 2019-0 Yes [id number] 20mg Take 1 U nivers 20 mg 8-02 tablet by ity of tablet 00:00: mouth 2 [place] 00 (two) Medical times Branch daily. ondansetron 2019-0 Yes [id number] 4mg Take 1 Univers 4 mg 8-02 tablet by ity of disintegrat 00:00: mouth [place] ing tablet 00 every 8 Medica l (eight) Branch hours as needed for Nausea and Vomiting (N/V). ondansetron 2019-0 2021- No [id number] 4mg Take 1 Univers 4 mg 8-02 04-20 tablet by ity of disintegrat 00:00: 00:[place] tablet [place] :00 every 8 Medica l (eight) Branch hours as needed for Nausea and Vomiting (N/V). lisinopril Yes [id number] 10mg Take 1 U nivers 10 mg 5-26 tablet by ity of tablet 00:00: mouth at [place] 00 bedtime. Medical Branch acetaminoph Yes [id number] 1{tbl} Take 1 Univers en-codeine 5-26 tablet by ity of (TYLENOL-CO 00:00: mouth [place] DEINE #3) 00 every 4 Medical 300-30 mg (four) Branch tablet hours as needed for Pain (scale 7-10). nitroglycer Yes [id number] .4mg Place 1 Univers in 0.4 mg 5-26 tablet ity of sublingual 00:00: [place] tablet 00 tongue Medical every 5 Branch (five) minutes as needed for Chest pain. lisinopril Yes [id number] 10mg Take 1 U nivers 10 mg 5-26 tablet by ity of tablet 00:00: mouth at [place] 00 bedtime. Medical Branch acetaminoph Yes [id number] 1{tbl} Take 1 Univers en-codeine 5-26 tablet by ity of (TYLENOL-CO 00:00: mouth [place] DEINE #3) 00 every 4 Medical 300-30 mg (four) Branch tablet hours as needed for Pain (scale 7-10). nitroglycer 2021- No [id number] .4mg Place 1 Univers in 0.4 mg [...] Meningococcal 2017-03-04 Completed University of Polysaccharide 00:00:00 [place] [employer] [place] (groups A, C, Y and Branc h W-135) conjugate vaccine (MCV4P) Meningococcal 2017-03-04 Completed University of Polysaccharide 00:00:00 [place] [employer] [place] (groups A, C, Y and Branc h W-135) conjugate vaccine (MCV4P) HEPATITIS A 2013-03-21 Completed University of 00:00:00 [facility] HPV 2013-03-21 Completed University of 00:00:00 [facility] HEPATITIS A 2013-03-21 Completed University of 00:00:00 [facility] HPV 2013-03-21 Completed University of 00:00:00 [facility] HPV 2012-05-24 Completed University of 00:00:00 [facility] HPV 2012-05-24 Completed University of 00:00:00 [facility] TDAP (ADACEL) VACCINE 2011-06-02 Completed Uni versity of 00:00:00 [facility] HEPATITIS A 2011-06-02 Completed University of 00:00:00 [facility] HPV 2011-06-02 Completed University of 00:00:00 [facility] Meningococcal 2011-06-02 Completed University of Polysaccharide 00:00:00 [place] Medi ludwig (groups A, C, Y and Branc h W-135) conjugate vaccine (MCV4P) Varicella 2011-06-02 Completed University of (varivax)(chicken 00:00:00 [place] M edical pox) Branch TDAP (ADACEL) VACCINE 2011-06-02 Completed Uni versity of 00:00:00 [facility] HEPATITIS A 2011-06-02 Completed University of 00:00:00 [facility] HPV 2011-06-02 Completed University of 00:00:00 [facility] Meningococcal 2011-06-02 Completed University of Polysaccharide 00:00:00 [facility] ludwig (groups A, C, Y and Branc h W-135) conjugate vaccine (MCV4P) Varicella 2011-06-02 Completed University of (varivax)(chicken 00:00:00 [place] M edical pox) Branch Influenza Virus 2009-12-06 Completed Universit y of Vaccine 00:00:00 [facility] Influenza Virus 2009-12-06 Completed Universit y of Vaccine 00:00:00 [facility] DTAP 2003-11-05 Completed University of 00:00:00 [facility] MMR 2003-11-05 Completed University of 00:00:00 [facility] Polio (IPV/OPV) 2003-11-05 Completed Universit y of 00:00:00 [facility] DTAP 2003-11-05 Completed University of 00:00:00 [facility] MMR 2003-11-05 Completed University of 00:00:00 [facility] Polio (IPV/OPV) 2003-11-05 Completed Universit y of 00:00:00 [facility] DTAP 2001-01-07 Completed University of 00:00:00 [facility] HIB 4 Dose Schedule 2001-01-07 Completed Unive rsity of 00:00:00 [facility] Pneumococcal 13 2001-01-07 Completed Universit y of Conjugate, PCV13 00:00:00 [place] Me dical (Prevnar 13) Branch DTAP 2001-01-07 Completed University of 00:00:00 [facility] HIB 4 Dose Schedule 2001-01-07 Completed Unive rsity of 00:00:00 [facility] Pneumococcal 13 2001-01-07 Completed Universit y of Conjugate, PCV13 00:00:[address] [facility] dical (Prevnar 13) Branch MMR 2000-11-09 Completed University of 00:00:00 [facility] Varicella 2000-11-09 Completed University of (varivax)(chicken 00:00:00 [place] M [facility] pox) Branch MMR 2000-11-09 Completed University of 00:00:00 [facility] Varicella 2000-11-09 Completed University of (varivax)(chicken 00:00:00 [place] M edical pox) Branch Hep B, Adol or Pedi 2000-10-20 Completed Unive rsity of Dosage 00:00:00 [facility] Hep B, Adol or Pedi 2000-10-20 Completed Unive rsity of Dosage 00:00:00 [facility] Polio (IPV/OPV) 2000-07-08 Completed Universit y of 00:00:00 [facility] Polio (IPV/OPV) 2000-07-08 Completed Universit y of 00:00:00 [facility] HIB 4 Dose Schedule 2000-05-12 Completed Unive rsity of 00:00:00 [facility] HIB 4 Dose Schedule 2000-05-12 Completed Unive rsity of 00:00:00 [facility] Hep B, Adol or Pedi 2000-04-24 Completed Unive rsity of Dosage 00:00:00 [facility] Hep B, Adol or Pedi 2000-04-24 Completed Unive rsity of Dosage 00:00:00 [facility] DTAP 2000-04-14 Completed University of 00:00:00 [facility] DTAP 2000-04-14 Completed University of 00:00:00 [place] [facility] DTAP 2000-02-10 Completed University of 00:00:00 [place] [facility] HIB 4 Dose Schedule 2000-02-10 Completed Unive rsity of 00:00:00 [place] [facility] Polio (IPV/OPV) 2000-02-10 Completed Universit y of 00:00:00 [place] [facility] DTAP 2000-02-10 Completed University of 00:00:00 [place] [facility] HIB 4 Dose Schedule 2000-02-10 Completed Unive rsity of 00:00:00 [place] [facility] Polio (IPV/OPV) 2000-02-10 Completed Universit y of 00:00:00 [place] [facility] DTAP 1999 Completed University of 00:00:00 [facility] Branch HIB 4 Dose Schedule 1999 Completed Unive rsity of 00:00:00 [facility] Branch Hep B, Adol or Pedi 1999 Completed Unive rsity of Dosage 00:00:00 [facility] Branch Polio (IPV/OPV) 1999 Completed Universit y of 00:00:00 [place] [facility] DTAP 1999 Completed University of 00:00:00 [place] [facility] HIB 4 Dose Schedule 1999 Completed Unive rsity of 00:00:00 [place] [facility] Hep B, Adol or Pedi 1999 Completed Unive rsity of Dosage 00:00:00 [facility] Branch Polio (IPV/OPV) 1999 Completed Universit y of 00:00:00 [facility] Vital Signs Vital Name Observation Time Observation Value Comments Source Systolic blood 2021-12-30 12:36:52 169 mm[Hg] Univer sity of pressure [facility] Diastolic blood 2021-12-30 12:36:52 103 mm[Hg] Unive rsity of pressure [facility] Heart rate 2021-12-30 12:33:00 89 /min [facility] Body temperature 2021-12-30 12:33:00 37.28 [facility] Respiratory rate 2021-12-30 12:33:00 18 /min [facility] Body height 2021-12-30 12:33:00 190.5 cm [facility] Body weight 2021-12-30 12:33:00 154.223 kg Universi ty [facility] BMI 2021-12-30 12:33:00 42.50 kg/m2 [facility] Oxygen saturation in 2021-12-30 12:33:00 98 /min University Arterial blood by [facility] Pulse oximetry Branch Procedures Procedure Date / Time Performed Performing Clinician Sourc e CT ABDOMEN PELVIS W 2021-12-30 13:05:27 Bipin Peterson [facility] CONTRAST [facility] LIPASE 2021-12-30 12:50:00 Singer [facility] COMP. METABOLIC PANEL 2021-12-30 12:50:00 [facility] ([id number]) [facility] CBC WITH DIFF 2021-12-30 12:50:00 Peterson, [facility] URINALYSIS 2021-12-30 12:50:00 Branch [facility] NOTICE OF PRIVACY 2021-12-30 12:30:03 Doctor Unassigned, No Univ ersity [facility] PRACTICES Name [facility] CONSENT/REFUSAL FOR 2021-12-30 12:29:44 Doctor Unassigned, No [facility] TREATMENT Encounters Start End Encounter Admission Attending Care Care Encounter Source Date/Time Date/Time Type Type Clinicians Facility Department ID 2021-07-12 Emergency [facility] [id number] [facility] 10:18[facility]03 [facility] 2021-07-10 Emergency [facility] [id number] Univers 10:15:11 [facility] 2021-12-30 2021-12-30 [facility] [id number] Univers 07:37:00 09:20:00 Bipin VALLEJO [id number] i ty [facility] [id number] [facility] [id number] [facility] 084 Branch 2021-12-30 2021-12-30 Emergency X [facility] ERT [id number] Univers 07:37:00 09:20:00 BIPIN [facility] 2021-12-30 2021-12-30 Orders Doctor BROOKS [id number] Univers 00:00:00 00:00:00 Only Unassigned, CRISTOBAL [id number] ity of [place] [facility] 4.2.7.2.686 [facility] [id number] [address] 2020-12-12 2020-12-12 Emergency [facility] [id number] 09:36:00 10:28:00 Martha Vallejo [id number] [place] 4.2.7.2.686 [place] [id number] 2020-12-12 2020-12-12 Orders Doctor BROOKS [id number] 00:00:00 00:00:00 Only Unassigned, CRISTOBAL [id number] [place] [facility] 4.2.7.2.686 [id number] 2020-04-13 2020-04-13 Emergency Bonner, TRAUMA [id number] 12:58:00 16:44:00 [facility] [id number] [id number] 2020-02-01 2020-02-01 Outpatient R VIRAL [facility] [id number] Univers 13:30:00 13:30:00 [facility] 2020-02-01 2020-02-01 Telemedici BRENDA [place] [id number] 07:32:27 07:47:[address] [facility] [id number] [facility] [id number] [id number] 2020-01-31 2020-01-31 Outpatient R [facility] [id number] Univers 13:00:00 13:00:00 [facility] 2020-01-12 2020-01-13 Outpatient X VIRAL [facility] [id number] Univers 11:38:28 13:59:00 [facility] 2020-01-12 2020-01-13 Emergency Lisa Roberts [id number] 11:38:28 13:59:00 Enrique Stratton [id number] [facility] [id number] 2019-12-31 2019-12-31 Emergency X SHARON KUMAR ERT [id number] Univers 00:44:11 02:52:00 SUKUMAR hall [facility] 2019-12-31 2019-12-31 Emergency Stacy [facility] [id number] 00:44:11 02:52:00 Sukumar Vallejo [id number] [place] [id number] [place] [id number] Results Test Description Test Time Test [...] 33.9 g/dL 31.2-35.0 RDW-SD (test code = 93984-1) 37.3 fL 38.5-51.6 L RDW-CV (test code = 788-0) 13.2 % 12.1-15.4 PLT (test code = 777-3) See_Comment H [Au tomated message] The system which ge nerated this result transmit rere reference range: 150 - 32 8 10*3/?L. The reference range was not used to interpret th is result as normal/abnormal . MPV (test code = 49101-0) 10.1 fL 9.8-13.0 NRBC/100 WBC (test code = See_Comment [ Automated message] The [id number]) system which ge nerated this result transmit rere reference range: 0.0 - 10 .0 /100 WBCs. The reference r zeke was not used to interpr et this result as normal/abnor mal. NRBC x10^3 (test code = <0.01 See_Comment [Au tomated message] The [id number]) system which ge nerated this result transmit rere reference range: 10*3/?L. The reference range was not u sed to interpret this result as normal/abnormal . GRAN MAT (NEUT) % (test code 75.1 % = 770-8) IMM GRAN % (test code = 0.40 % 6802308861) LYMPH % (test code = 736-9) 17.1 % MONO % (test code = 5905-5) 6.8 % EOS % (test code = 713-8) 0.4 % BASO % (test code = 706-2) 0.2 % GRAN MAT x10^3(ANC) (test 8.43 10*3/uL 1.99-6.95 H code = 8568038610) IMM GRAN x10^3 (test code = 0.04 10*3/uL 0.00-0.06 1083438213) LYMPH x10^3 (test code = 1.92 10*3/uL 1.09-3.23 731-0) MONO x10^3 (test code = 0.76 10*3/uL 0.36-1.02 742-7) EOS x10^3 (test code = 0.04 10*3/uL 0.06-0.53 L 711-2) BASO x10^3 (test code = <0.03 0.01-0.09 704-7) Lab Interpretation (test Abnormal code = 00291-8) [facility] ([id number][facility]2021-12-30 13:28:00 Test Item Value Reference Range Interpretation Comments NA (test code = 138 mmol/L 135-145 1983627439) K (test code = 4.5 mmol/L 3.5-5.0 3735416980) CL (test code = 99 mmol/L 98-108 6454147102) CO2 TOTAL (test code = 21 mmol/L 23-31 L 8003742604) AGAP (test code = 2-16 H 8644257999) BUN (test code = 16 mg/dL 7-23 8892161555) GLUCOSE (test code = 121 mg/dL 70-110 H 9235517702) CREATININE (test code = 0.93 mg/dL 0.60-1.25 9946012031) TOTAL BILI (test code = 1.3 mg/dL 0.1-1.1 H 8793221555) CALCIUM (test code = 9.9 mg/dL 8.6-10.6 8701911593) T PROTEIN (test code = 10.1 g/dL 6.3-8.2 H 4070480978) ALBUMIN (test code = 5.6 g/dL 3.5-5.0 H 7478480841) ALK PHOS (test code = 79 U/L 34-122 9870848997) ALTv (test code = 38 U/L 5-50 1742-6) AST(SGOT) (test code = 37 U/L 13-40 1606316553) eGFR (test code = mL/min/1.73m2 7376876599) CECI (test code = CECI) Association of [...] tests). Lab Interpretation Abnormal (test code = 06926-6) [facility]27[facility]38 Test Item Value Reference Range Interpretation Comments LIPASE (test code = 3528237836) 194 U/L 0-220 Lab Interpretation (test code = Normal 91338-1) [facility]"
[2023-01-11] MEDS ORDERED: FAMOTIDINE 20 MG/2 ML VIAL IV ONE (08:44)
[2023-01-11] MEDS ORDERED: KETOROLAC 30 MG/ML INJ ONE (08:44)
[2023-01-11] MEDS ORDERED: ONDANSETRON 4 MG/2 ML VIAL ONE (08:44)
[2023-01-11 08:56] LABS: Hematocrit 42.3 % (39.6-49.0); Lymphocytes % 11.7 % (15.3-44.8); MCV 79.2 fL (80-100); MPV 7.5 fL (7.6-11.3); RBC Red Blood Cell Count 5.34 M/uL (4.33-5.43)
--- NOTE | 2023-01-11 09:12 | RAD REPORT ---
EXAM DESCRIPTION: CT - Abdomen Pelvis W Contrast - 01/11/2023 8:53 am CLINICAL HISTORY: Abdominal pain COMPARISON: September 2022 TECHNIQUE: Computed axial tomography of the abdomen pelvis was obtained. 100 cc Isovue-300 was admin istered intravenously. Oral contrast was not requested which limits evaluation of bowel and appendix All CT scans are performed using dose optimization technique as appropriate and may include automated exposure control or mA/KV adjustment according to patient size. FINDINGS: The patient started vomiting during the scan. Consequently there is little contrast within the vessels and organs. This limits evaluation. Delayed sequences were then obtained which demonstra te contrast within the collecting structures of of the kidneys and ureters. Liver, spleen, pancreas, adrenals and kidneys grossly normal No evidence of diverticulitis No ascites IMPRESSION: No acute abnormality is displayed.
--- NOTE | 2023-01-11 09:13 | RAD REPORT ---
EXAM DESCRIPTION: US - Abdomen Exam Limited - 01/11/2023 8:43 am CLINICAL HISTORY: Abdominal pain. COMPARISON: None. FINDINGS: The gallbladder wall is not thickened. A gallstone is not seen. The biliary tree is normal caliber. IMPRESSION: Unremarkable gallbladder ultrasound.
[2023-01-11 09:14] LABS: Albumin 4.3 g/dL (3.4-5.0); Bilirubin Total 0.3 mg/dL (0.2-1.0); Potassium 3.1 mEq/L (3.5-5.1); Protein, Total 9.9 g/dL (6.4-8.2); Troponin High Sensitivity 5.8 pg/mL (<58.9)
[2023-01-11] MEDS ORDERED: POTASSIUM CL SA 10 MEQ TAB PO ONE (09:46)
[2023-01-11] MEDS ORDERED: PROMETHAZINE INJ 25 MG/ML AMP ONE (10:08)
--- NOTE | 2023-01-11 10:56 | ER ---
Nurse's Notes [facility] Name: Nacho Lopez Age: 22 yrs Sex: Male : 2000 Arrival Date: 01/11/2023 Time: 08:13 Bed 18 Private MD: Diagnosis: Epigastric pain;Nausea with vomiting, unspecified Presentation: 01/11 08:21 Chief complaint: EMS states: patient called for 2 days of abdominal pain, nausea and ko1 vomiting, no BM in 2 days. Coronavirus screen: At this time, the client does not indicate any symptoms associated with coronavirus-19. Ebola Screen: No symptoms or risks identified at this time. Initial Sepsis Screen: Does the patient meet any 2 criteria? No. Patient's initial sepsis screen is negative. Does the patient have a suspected source of infection? No. Patient's initial sepsis screen is negative. Risk Assessment: Do you want to hurt yourself or someone else? Patient reports no desire to harm self or others. Onset of symptoms was January 09, 2023. 08:21 Method Of Arrival: EMS: [facility] ko1 08:21 Acuity: KLAUS 3 ko1 Triage Assessment: 08:23 General: Appears distressed, uncomfortable, Behavior is calm, cooperative, appropriate ko1 for age. Pain: Complains of pain in abdomen. Historical: - Allergies: 08:23 NKA; ko1 - Home Meds: 08:23 None [Active]; ko1 - PMHx: 08:23 GERD; ko1 - Immunization history:: Adult Immunizations unknown. - Social history:: Smoking status: Patient denies any tobacco usage or history of. Screenin:24 [facility] ED Fall Risk Assessment (Adult) History of falling in the last 3 months, ko1 including since admission No falls in past 3 months (0 pts) Confusion or Disorientation No (0 pts) Intoxicated or Sedated No (0 pts) Impaired Gait No (0 pts) Mobility Assist Device Used No (0 pt) Altered Elimination No (0 pt) Score/Fall Risk Level 0 - 2 = Low Risk Oriented to surroundings, Maintained a safe environment, Educated pt \T\ family on fall prevention, incl call for assistance when getting out of bed, Assessed \T\ reinforced patient's understanding of fall precautions, Provided non-skid footwear, Hourly rounding (assess needs \T\ fall precautionary measures) done, Used ambulatory aids as needed (educated on \T\ assisted with), Used gait belt as appropriate. Abuse screen: Denies threats or abuse. Denies injuries from another. Nutritional screening: No deficits noted. Tuberculosis screening: No symptoms or risk factors identified. Assessment: 08:24 Neuro: No deficits noted. Cardiovascular: No deficits noted. Respiratory: No deficits ko1 noted. GI: Reports upper abdominal pain, nausea, vomiting. : No deficits noted. EENT: No deficits noted. Derm: No deficits noted. Musculoskeletal: No deficits noted. Vital Signs: 08:21 BP 187 / 103; Pulse 73; Resp 18; Temp 98.8; Pulse Ox 99% ; Pain 10/10; ko1 08:30 BP 162 / 98; Pulse 79; Resp 18; Pulse Ox 99% ; ko1 09:00 BP 163 / 110; Pulse 91; Resp 18; Pulse Ox 97% ; ko1 09:15 BP 192 / 115; Pulse 89; Resp 18; Pulse Ox 97% on R/A; ko1 10:20 BP 183 / 107; Pulse 65; Resp 18; Pulse Ox 100% ; ko1 11:09 BP 185 / 99; Pulse 72; Resp 18; Pulse Ox 99% ; Pain 4/10; ko1 08:21 Pain Scale: Adult ko1 11:09 Pain Scale: Adult ko1 ED Course: 08:21 Patient arrived in ED. ko1 08:21 Emy Burkett, MICKY is Primary Nurse. ko1 08:21 Theresa Gu FNP-C is PHCP. kb 08:21 Héctor Mukherjee MD is Attending Physician. kb 08:23 Triage completed. ko1 08:23 Arm band placed on right wrist. Patient placed in an exam room, Patient notified of ko1 wait time. 08:24 Bed in low position. Call light in reach. Side rails up X 1. Client placed on ko1 continuous cardiac and pulse oximetry monitoring. NIBP monitoring applied. phototypesetting equipment monitor on. Door closed. Noise minimized. Lights dimmed. Warm blanket given. Head of bed elevated. 08:24 Maintain EMS IV. Dressing intact. Good blood return noted. Site clean \T\ dry. Gauge \T\ ko 1 site: 20g left AC. Patient maintains SpO2 saturation greater than 95% on room air. 08:45 US Abdomen Limited In Process Unspecified. EDMS 08:55 CT Abd/Pelvis - IV Contrast Only In Process Unspecified. EDMS 09:15 No provider procedures requiring assistance completed. ko1 11:09 IV discontinued, intact, bleeding controlled, No redness/swelling at site. Pressure ko1 dressing applied. Administered Medications: 08:38 Drug: NS 0.9% IV 1000 ml Route: IV; Rate: 1 bolus; Site: left antecubital; ko1 09:53 Follow up: Response: No adverse reaction; IV Status: Completed infusion; IV Intake: ko1 1000ml 08:38 Drug: Famotidine IVP 20 mg Route: IVP; Site: left antecubital; ko1 09:53 Follow up: Response: No adverse reaction ko1 08:47 Drug: Ondansetron IVP 4 mg Route: IVP; Site: left antecubital; ko1 09:53 Follow up: Response: No adverse reaction; Nausea is decreased ko1 08:49 Drug: TORadol - Ketorolac IVP 15 mg Route: IVP; Site: left antecubital; ko1 09:53 Follow up: Response: No adverse reaction; Nausea is decreased ko1 09:45 Drug: Potassium Chloride PO 40 mEq Route: PO; ko1 11:00 Follow up: Response: No adverse reaction ko1 10:03 Drug: Promethazine IM 25 mg Route: IM; Site: left gluteus; ko1 10:59 Follow up: Response: No adverse reaction; Nausea is decreased; Vomiting decreased ko1 Medication: 09:15 VIS not applicable for this client. ko1 Intake: 09:53 IV: 1000ml; Total: 1000ml. ko1 Outcome: 10:55 Discharge ordered by . adelaide 11:09 Discharged to home ambulatory. ko1 11:09 Condition: improved 11:09 Discharge instructions given to patient, Instructed on discharge instructions, follow up and referral plans. medication usage, Demonstrated understanding of instructions, follow-up care, medications, Prescriptions given X 2. 11:21 Patient left the ED. ko1 Signatures: Dispatcher [employer] EDMS Theresa Gu FNP-C FNP-Emy Damon, RN RN ko1
--- NOTE | 2023-01-11 10:56 | EDPHYS ---
Physician Documentation [facility] Name: Nacho Lopez Age: 22 yrs Sex: Male : 2000 Arrival Date: 01/11/2023 Time: 08:13 Bed 18 Private MD: ED Physician Héctor Mukherjee HPI: 01/11 09:07 This 22 yrs old Male presents to ER via EMS with complaints of Abdominal pain, nausea, kb vomiting. 09:07 The patient presents with abdominal pain in the epigastric area. Onset: The kb symptoms/episode began/occurred 2 day(s) ago. The symptoms do not radiate. Associated signs and symptoms: Pertinent positives: nausea and vomiting, Pertinent negatives: constipation, diarrhea, fever. The symptoms are described as constant. Modifying factors: The symptoms are alleviated by nothing, the symptoms are aggravated by nothing. Severity of pain: At its worst the pain was moderate in the emergency department the pain is unchanged. The patient has not experienced similar symptoms in the past. The patient has not recently seen a physician. Patient is a 22-year-old male with a history of GERD who presents for nausea and vomiting for 2 days with epigastric pain. Denies fever.. Historical: - Allergies: 08:23 NKA; ko1 - Home Meds: 08:23 None [Active]; ko1 - PMHx: 08:23 GERD; ko1 - Immunization history:: Adult Immunizations unknown. - Social history:: Smoking status: Patient denies any tobacco usage or history of. ROS: 09:08 Constitutional: Negative for fever, chills, and weight loss. kb 09:08 Abdomen/GI: Positive for abdominal pain, nausea and vomiting, Negative for diarrhea, constipation. 09:08 All other systems are negative. Exam: 09:08 Constitutional: This is a well developed, well nourished patient who is awake, alert, kb and in no acute distress. Head/Face: Normocephalic, atraumatic. ENT: Moist Mucous membranes Chest/axilla: Normal chest wall appearance and motion. Cardiovascular: Regular rate and rhythm with a normal S1 and S2. No gallops, murmurs, or rubs. No pulse deficits. Respiratory: Respirations even and unlabored. No increased work of breathing. Talking in full sentences Skin: Warm, dry with normal turgor. Normal color. MS/ Extremity: Pulses equal, no cyanosis. Neurovascular intact. Full, normal range of motion. Neuro: Awake and alert, GCS 15, oriented to person, place, time, and situation. Moves all extremities. Normal gait. 09:08 Abdomen/GI: Inspection: abdomen appears normal, Bowel sounds: normal, Palpation: soft, in all quadrants, mild abdominal tenderness, in all quadrants, moderate abdominal tenderness, in the epigastric area. 09:35 ECG was reviewed by the Attending Physician. kb Vital Signs: 08:21 BP 187 / 103; Pulse 73; Resp 18; Temp 98.8; Pulse Ox 99% ; Pain 10/10; ko1 08:30 BP 162 / 98; Pulse 79; Resp 18; Pulse Ox 99% ; ko1 09:00 BP 163 / 110; Pulse 91; Resp 18; Pulse Ox 97% ; ko1 09:15 BP 192 / 115; Pulse 89; Resp 18; Pulse Ox 97% on R/A; ko1 10:20 BP 183 / 107; Pulse 65; Resp 18; Pulse Ox 100% ; ko1 11:09 BP 185 / 99; Pulse 72; Resp 18; Pulse Ox 99% ; Pain 4/10; ko1 08:21 Pain Scale: Adult ko1 11:09 Pain Scale: Adult ko1 MDM: 08:21 Patient medically screened. kb 09:09 Differential diagnosis: gastritis, gastroesophageal reflux disease, non-specific abd kb pain, pancreatitis. Data reviewed: vital signs, nurses notes. 10:55 Historians other than the Patient: EMS: [facility]. 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 ED course: Pt is feeling better and tolerating po intake. 01/11 08:22 Order name: CBC with Diff; Complete Time: 09:05 kb 01/11 08:22 Order name: CMP; Complete Time: 09:25 kb 01/11 08:22 Order name: Lipase; Complete Time: 09:25 kb 01/11 08:22 Order name: Troponin HS; Complete Time: 09:25 kb 01/11 08:22 Order name: CT Abd/Pelvis - IV Contrast Only; Complete Time: 09:25 kb 01/11 08:22 Order name: US Abdomen Limited; Complete Time: 09:25 kb 01/11 08:22 Order name: EKG; Complete Time: 08:23 kb 01/11 08:22 Order name: IV Saline Lock; Complete Time: 08:27 kb 01/11 08:22 Order name: Labs collected and sent; Complete Time: 08:46 kb 01/11 08:22 Order name: EKG - Nurse/Tech; Complete Time: 08:59 kb 01/11 10:42 Order name: PO challenge; Complete Time: 10:59 kb EC:35 Rate is 86 beats/min. Rhythm is regular. QRS [place] is Normal. [place] interval is normal at kb 146 msec. QRS interval is normal at 106 msec. QT interval is normal at 483 msec. Administered Medications: 08:38 Drug: NS 0.9% IV 1000 ml Route: IV; Rate: 1 bolus; Site: left antecubital; ko1 09:53 Follow up: Response: No adverse reaction; IV Status: Completed infusion; IV Intake: ko1 1000ml 08:38 Drug: Famotidine IVP 20 mg Route: IVP; Site: left antecubital; ko1 09:53 Follow up: Response: No adverse reaction ko1 08:47 Drug: Ondansetron IVP 4 mg Route: IVP; Site: left antecubital; ko1 09:53 Follow up: Response: No adverse reaction; Nausea is decreased ko1 08:49 Drug: TORadol - Ketorolac IVP 15 mg Route: IVP; Site: left antecubital; ko1 09:53 Follow up: Response: No adverse reaction; Nausea is decreased ko1 09:45 Drug: Potassium Chloride PO 40 mEq Route: PO; ko1 11:00 Follow up: Response: No adverse reaction ko1 10:03 Drug: Promethazine IM 25 mg Route: IM; Site: left gluteus; ko1 10:59 Follow up: Response: No adverse reaction; Nausea is decreased; Vomiting decreased ko1 Disposition: 11:55 Co-signature as Attending Physician, Héctor Mukherjee MD I reviewed the patient's care rn provided by the Advanced Practice Provider and agree with the diagnosis and treatment plan. Disposition Summary: 01/11/23 10:55 Discharge Ordered Location: Home kb Condition: Stable kb Diagnosis - Epigastric pain kb - Nausea with vomiting, unspecified kb Followup: kb - With: Emergency Department - When: As needed - Reason: Worsening of condition Followup: kb - With: Private Physician - When: 2 - 3 days - Reason: Recheck today's complaints, Continuance of care, Re-evaluation by your physician Discharge Instructions: - Discharge Summary Sheet kb - Nausea and Vomiting, Adult, [id number] kb - Gastroesophageal Reflux Disease, Adult, [id number] kb - Food Choices for Gastroesophageal Reflux Disease, Adult, [id number] kb Forms: - Medication Reconciliation Form kb - Thank You Letter kb - Antibiotic Education kb - Prescription Opioid Use kb Prescriptions: - ondansetron 4 mg Oral Tablet,disintegrating - take 1 tablet by ORAL route every 6 hours As needed; 15 tablet; Refills: 0, kb Product Selection Permitted - Protonix 40 mg Oral Tablet - take 1 tablet by ORAL route once daily; 30 tablet; Refills: 0, Product kb Selection Permitted 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
[2023-01-11 11:26] VITALS: TEMP 98.8
[2023-01-11 11:35] VITALS: BP 185/99; O2SAT 99
--- NOTE | 2023-01-11 16:05 | EKG ---
Test Date: 2023-01-11 Test Time: 09:02:13 Business Center Representative: MK MEASUREMENT RESULTS: Intervals: Rate: 86 AR: 146 QRSD: 106 QT: 404 QTc: 483 [place]: P: 64 AR: 146 QRS: 95 T: -15 INTERPRETIVE STATEMENTS: Normal sinus rhythm T wave abnormality, consider inferior ischemia Prolonged QT Abnormal ECG Compared to ECG 10/06/2022 10:51:17 T-wave abnormality now present Possible ischemia now present Prolonged QT interval now present Electronically Signed On 01-11-23 16:04:35 CDT by Nicolas Tate
== END 2023-01-11 11:21 | disposition home or self-care (01) ==
LOC: ER 08:13
DX: R10.13 Epigastric pain (principal); R11.2 Nausea with vomiting, unspecified
CPT/HCPCS: 36415; 74177; 76705; 80053; 83690; 84484; 85025; 93005; 96361; 96372; 96374; 96375; 99285; J2405; J2550; Q9967

== ENCOUNTER 2023-05-13 09:13 | Emergency (ER) | payer OTHER, SELFPAY ==
--- OUTSIDE RECORDS SUMMARY | 2023-05-13 09:17 | XMS REPORT | Continuity of Care Document ---
:[address] [facility] t Address [address] [place] [address] Care Team Providers Name Role Phone PCP, PATIENT DOES NOT HAVE A Primary Care Physician Unavaila Bipin Isaac DO Attending Clinician BIPIN PETERSON Attending Clinician Unavailable Doctor Unassigned, [place] Attending Clinician Unavailable Martha Al DO Attending [...] Effective Date Expiration Date S jai COVID19 [facility] [id number] 2020 00:00:00 UNINSURED Problems Condition Condition Condition Status Onset Resolution Last Treating Co mments Source Name Details Category Date Date Treatment Clinician Date Obesity Obesity Disease Active Univers (BMI (BMI 5-03 ity of 30-39.9) 30-39.9) 00:00: [place] 00 Medical Branch Pneumomedi Pneumomedi Disease Active U nivers astinum astinum 01-11 ity of 00:00: [place] 00 Medical [facility] Allergies, Adverse Reactions, Alerts Allergy Allergy Status Severity Reaction(s) Onset Inactive Treating Comm ents Source Name Type Date Date Clinician NO KNOWN Drug Active Univers ALLERGIE Class ity of S [facility] Social History Social Habit Start Date Stop Date Quantity Comments Source Exposure to 2021-12-20 2021-12-30 Not sure [facility] SARS-CoV-2 (event) 00:00:00 08:42:00 Medica l Branch Tobacco use and 2015-05-14 2015-05-14 Never used [facility] exposure 00:00:00 00:00:00 [facility] Sex Assigned At [birth year] [facility] 00:00:00 00:00:00 Medical Branch Smoking Status Start Date Stop Date Source Never smoker [facility] Medications Ordered Filled Start Stop Current Ordering Indication Dosage Frequency Signature Comments Components Source Medication Medication Date Date Medication? Clinician (SIG) Name Name iopamidol No [id number] 120mL 120 mL, Univers (ISOVUE 12-30 Intravenou ity o f 370-500 mL) 14:15: 14:15 s, ONCE, 1 [place] injection 00 :00 dose, On Medica l 120 mL Wed Branch 12/30/21 at 0915, Routine pantoprazol No 40mg 40 mg, Uni vers e 12-3020 Slow IV ity of (PROTONIX) 13:45: 13:05 [...] ludwig 1:1:1 Wed Branch (FIRST-MOUT 12/30/21 at [facility]) 0845, oral Routine suspension 15 mL NaCl 0.9% 2021- No 1000mL at 999 Uni vers (NS) bolus 4-20 04-20 mL/hr, ity of infusion 12:45: 14:14 1,000 mL, Manjinder as 1,000 mL 00 :00 IV Medical Infusion, Branch ONCE, 1 dose, On Tue12/30/21 at 0745, STAT sucralfate 0 Yes [id number] 1g Take 1 U nivers 1 gram 4-20 tablet by ity of tablet 00:00: mouth [place] 00 before Medical meals and Branch at bedtime. ondansetron Yes [id number] 4mg Take 1 Univers 4 mg 4-20 tablet by ity of disintegrat 00:00: mouth [place] ing tablet 00 every 8 Medica l (eight) Branch hours as needed for Nausea and Vomiting (N/V). pantoprazol Yes [id number] 40mg Take 1 Univers e 40 mg EC 4-20 tablet by ity of tablet 00:00: mouth [place] 00 daily. Medical Branch famotidine 0 Yes [id number] 20mg Take 1 U nivers 20 mg 8-02 tablet by ity of tablet 00:00: mouth 2 [place] 00 (two) Medical times Branch daily. famotidine 2019-0 Yes [id number] 20mg Take 1 U nivers 20 mg 8-02 tablet by ity of tablet 00:00: mouth 2 [place] 00 (two) Medical times Branch daily. ondansetron 2019-0 Yes [id number] 4mg Take 1 Univers 4 mg 8-02 tablet by ity of disintegrat 00:00: mouth [place] ing tablet 00 every 8 Medica l (eight) Branch hours as needed for Nausea and Vomiting (N/V). ondansetron 2019-0 2021- No [id number] 4mg Take 1 Univers 4 mg 8-02 04-20 tablet by ity of disintegrat 00:00: 00:00 [place] tablet 00 :00 every 8 Medica l (eight) Branch hours as needed for Nausea and Vomiting (N/V). lisinopril Yes [id number] 10mg Take 1 U nivers 10 mg 5-26 tablet by ity of tablet 00:00: mouth at [place] 00 bedtime. Medical Branch acetaminoph Yes [id number] 1{tbl} Take 1 Univers en-codeine 5-26 tablet by ity of (TYLENOL-CO 00:00: mouth [place] DEINE #3) 00 every 4 Medical 300-30 mg (four) Branch tablet hours as needed for Pain (scale 7-10). nitroglycer Yes [id number] .4mg Place 1 Univers in 0.4 mg 5-26 tablet ity of sublingual 00:00: under the [place] tablet 00 tongue Medical every 5 Branch (five) minutes as needed for Chest pain. lisinopril Yes [id number] 10mg Take 1 U nivers 10 mg 5-26 tablet by ity of tablet 00:00: mouth at [place] 00 bedtime. Medical Branch acetaminoph Yes [id number] 1{tbl} Take 1 Univers en-codeine 5-26 tablet by ity of (TYLENOL-CO 00:00: mouth [place] DEINE #3) 00 every 4 Medical 300-30 mg (four) Branch tablet hours as needed for Pain (scale 7-10). nitroglycer 2021- No [id number] .4mg Place 1 Univers in 0.4 mg [...] Meningococcal 2017-03-04 Completed University of Polysaccharide 00:00:00 [place] [employer] ludwig (groups A, C, Y and Branc h W-135) conjugate vaccine (MCV4P) Meningococcal 2017-03-04 Completed University of Polysaccharide 00:00:00 [place] Dataupia ludwig (groups A, C, Y and Branc h W-135) conjugate vaccine (MCV4P) HEPATITIS A 2013-03-21 Completed University of 00:00:00 [facility] HPV 2013-03-21 Completed University of 00:00:00 [facility] HEPATITIS A 2013-03-21 Completed University of 00:00:00 [facility] HPV 2013-03-21 Completed University of 00:00:00 [facility] HPV 2012-05-24 Completed University of 00:00:00 [facility] HPV 2012-05-24 Completed University of 00:00:00 [facility] TDAP (ADACEL) VACCINE 2011-06-02 Completed Uni versity of 00:00:00 [facility] HEPATITIS A 2011-06-02 Completed University of 00:00:00 [facility] HPV 2011-06-02 Completed University of 00:00:00 [facility] Meningococcal 2011-06-02 Completed University of Polysaccharide 00:00:00 [place] Medi ludwig (groups A, C, Y and Branc h W-135) conjugate vaccine (MCV4P) Varicella 2011-06-02 Completed University of (varivax)(chicken 00:00:00 [place] M edical pox) Branch TDAP (ADACEL) VACCINE 2011-06-02 Completed Uni versity of 00:00:00 [facility] HEPATITIS A 2011-06-02 Completed University of 00:00:00 [facility] HPV 2011-06-02 Completed University of 00:00:00 [facility] Meningococcal 2011-06-02 Completed University of Polysaccharide 00:00:00 [place] Medi ludwig (groups A, C, Y and Branc h W-135) conjugate vaccine (MCV4P) Varicella 2011-06-02 Completed University of (varivax)(chicken 00:00:00 [place] M edical pox) Hiko Influenza Virus 2009-12-06 Completed Universit y of Vaccine 00:00:00 [facility] Influenza Virus 2009-12-06 Completed Universit y of Vaccine 00:00:00 [facility] DTAP 2003-11-05 Completed University of 00:00:00 [facility] MMR 2003-11-05 Completed University of 00:00:00 [facility] Polio (IPV/OPV) 2003-11-05 Completed Universit y of 00:00:00 [facility] DTAP 2003-11-05 Completed University of 00:00:00 [facility] MMR 2003-11-05 Completed University of 00:00:00 [facility] Polio (IPV/OPV) 2003-11-05 Completed Universit y of 00:00:00 [facility] DTAP 2001-01-07 Completed University of 00:00:00 [facility] HIB 4 Dose Schedule 2001-01-07 Completed Unive rsity of 00:00:00 [facility] Pneumococcal 13 2001-01-07 Completed Universit y of Conjugate, PCV13 00:00:00 [place] Me dical (Prevnar 13) Branch DTAP 2001-01-07 Completed University of 00:00:00 [facility] HIB 4 Dose Schedule 2001-01-07 Completed Unive rsity of 00:00:00 [facility] Pneumococcal 13 2001-01-07 Completed Universit y of Conjugate, PCV13 00:00:00 [facility] dical (Prevnar 13) Branch MMR 2000-11-09 Completed University of 00:00:00 [facility] Varicella 2000-11-09 Completed University of (varivax)(chicken 00:00:00 [place] M [facility]ical pox) Branch MMR 2000-11-09 Completed University of 00:00:00 [facility] Varicella 2000-11-09 Completed University of (varivax)(chicken 00:00:00 [place] M edical pox) Branch Hep B, Adol or Pedi 2000-10-20 Completed Unive rsity of Dosage 00:00:00 [facility] Hep B, Adol or Pedi 2000-10-20 Completed Unive rsity of Dosage 00:00:00 [facility] Polio (IPV/OPV) 2000-07-08 Completed Universit y of 00:00:00 [facility] Polio (IPV/OPV) 2000-07-08 Completed Universit y of 00:00:00 [facility] HIB 4 Dose Schedule 2000-05-12 Completed Unive rsity of 00:00:00 [facility] HIB 4 Dose Schedule 2000-05-12 Completed Unive rsity of 00:00:00 [facility] Hep B, Adol or Pedi 2000-04-24 Completed Unive rsity of Dosage 00:00:00 [facility] Hep B, Adol or Pedi 2000-04-24 Completed Unive rsity of Dosage 00:00:00 [facility] DTAP 2000-04-14 Completed University of 00:00:00 [facility] DTAP 2000-04-14 Completed University of 00:00:00 [place] [facility] DTAP 2000-02-10 Completed University of 00:00:00 [facility] Branch HIB 4 Dose Schedule 2000-02-10 Completed Unive rsity of 00:00:00 [place] [facility] Polio (IPV/OPV) 2000-02-10 Completed Universit y of 00:00:00 [facility] DTAP 2000-02-10 Completed University of 00:00:00 [facility] HIB 4 Dose Schedule 2000-02-10 Completed Unive rsity of 00:00:00 [place] [facility] Polio (IPV/OPV) 2000-02-10 Completed Universit y of 00:00:00 [facility] DTAP 1999 Completed University of 00:00:00 [facility] HIB 4 Dose Schedule 1999 Completed Unive rsity of 00:00:00 [facility] Hep B, Adol or Pedi 1999 Completed Unive rsity of Dosage 00:00:00 [facility] Polio (IPV/OPV) 1999 Completed Universit y of 00:00:00 [facility] DTAP 1999 Completed University of 00:00:00 [facility] HIB 4 Dose Schedule 1999 Completed Unive rsity of 00:00:00 [facility] Hep B, Adol or Pedi 1999 Completed Unive rsity of Dosage 00:00:00 [facility] Polio (IPV/OPV) 1999 Completed Universit y of 00:00:00 [facility] Vital Signs Vital Name Observation Time Observation Value Comments Source Systolic blood 2021-12-30 12:36:52 169 mm[Hg] Univer sity of pressure [facility] Diastolic blood 2021-12-30 12:36:52 103 mm[Hg] Unive rsity of pressure [facility] Heart rate 2021-12-30 12:33:00 89 /min [facility] Body temperature 2021-12-30 12:33:00 37.28 [facility] 2021-12-30 12:33:00 18 /min [facility] Body height 2021-12-30 12:33:00 190.5 cm [facility] Body weight 2021-12-30 12:33:00 154.223 kg [facility] ty [facility] BMI 2021-12-30 12:33:00 42.50 kg/m2 [facility] Oxygen saturation in 2021-12-30 12:33:00 98 /min [facility] Arterial blood by [facility] Pulse oximetry Branch Procedures Procedure Date / Time Performed Performing Clinician Sourc e CT ABDOMEN PELVIS W 2021-12-30 13:05:27 Bipin Peterson [facility] CONTRAST [facility] Branch LIPASE 2021-12-30 12:50:00 Singer [facility] COMP. METABOLIC PANEL 2021-12-30 12:50:00 Bipin Peterson [facility] ([id number]) [facility] CBC WITH DIFF 2021-12-30 12:50:00 Singer [facility] URINALYSIS 2021-12-30 12:50:00 Peterson [facility] NOTICE OF PRIVACY 2021-12-30 12:30:03 Doctor Unassigned, No Univ [facility] PRACTICES Name [facility] CONSENT/REFUSAL FOR 2021-12-30 12:29:44 Doctor Unassigned, No [facility] DIAGNOSIS AND Name Medical Hiko TREATMENT Encounters Start End Encounter Admission Attending Care Care Encounter Source Date/Time Date/Time Type Type Clinicians Facility Department ID 2021-07-12 Emergency [facility] [id number] Univers [facility]-07-10 Emergency [facility] [id number] Univers 10:15:11 [facility] 2021-12-30 2021-12-30 Emergency [facility] [id number] Univers 07:37:00 09:20:00 Bipin DE GUZMAN [id number] i ty [facility] [id number] [facility] [id number] [facility] 084 Branch 2021-12-30 2021-12-30 Emergency X [facility] ERT [id number] Univers 07:37:00 09:20:00 BIPIN hall [facility] 2021-12-30 2021-12-30 Orders Doctor BROOKS [id number] Univers 00:00:00 00:00:00 Only Unassigned, CRISTOBAL [id number] ity of [place] [facility] [id number] [facility] [id number] [address] 2020-12-12 2020-12-12 Emergency [facility] [id number] 09:36:00 10:28:00 Martha De Guzman [id number] [place] 4.2.7.2.686 [place] [id number] 2020-12-12 2020-12-12 Orders Doctor BROOKS [id number] 00:00:00 00:00:00 Only Unassigned, [place] [id number] [place] [facility] 4.2.7.2.686 [id number] 2020-04-13 2020-04-13 Emergency Ha, [place] [id number] 12:58:00 16:44:00 [facility] [id number] [id number] 2020-02-01 2020-02-01 Outpatient R VIRAL [facility] [id number] Univers 13:30:00 13:30:00 [facility] 2020-02-01 2020-02-01 Telemedici BRENDA [place] [id number] 07:32:27 07:47:27 ne Visit [facility] [id number] [facility] 4.2.7.2.686 [id number] 2020-01-31 2020-01-31 Outpatient R [facility] [id number] Univers 13:00:00 [facility]:00:[facility] 2020-01-12 2020-01-13 Outpatient X VIRAL [facility] [id number] Univers 11:38:28 13:59:00 [facility] 2020-01-12 2020-01-13 Emergency Lisa Roberts [id number]. [id number] 11:38:28 13:59:00 Enrique [place] [id number] [facility] [id number] 2019-12-31 2019-12-31 Emergency X SHARON KUMAR ERT [id number] Univers 00:44:11 02:52:00 SUKUMAR hall [facility] 2019-12-31 2019-12-31 Emergency Stacy [facility] [id number] 00:44:11 02:52:00 Sukumar De Guzman [id number] [place] 4.2.7.2.686 [place] [id number] [id number] Results Test Description Test Time Test [...] 33.9 g/dL 31.2-35.0 RDW-SD (test code = 51834-0) 37.3 fL 38.5-51.6 L RDW-CV (test code = 788-0) 13.2 % 12.1-15.4 PLT (test code = 777-3) See_Comment H [Au tomated message] The system which ge nerated this result transmit rere reference range: 150 - 32 8 10*3/?L. The reference range was not used to interpret th is result as normal/abnormal . MPV (test code = 12804-2) 10.1 fL 9.8-13.0 NRBC/100 WBC (test code = See_Comment [ Automated message] The [id number]) system which ge nerated this result transmit rere reference range: 0.0 - 10 .0 /100 WBCs. The reference r zeke was not used to interpr et this result as normal/abnor mal. NRBC x10^3 (test code = <0.01 See_Comment [Au tomated message] The 8856412242) system which ge nerated this result transmit rere reference range: 10*3/?L. The reference range was not u sed to interpret this result as normal/abnormal . GRAN MAT (NEUT) % (test code 75.1 % = 770-8) IMM GRAN % (test code = 0.40 % 6476380094) LYMPH % (test code = 736-9) 17.1 % MONO % (test code = 5905-5) 6.8 % EOS % (test code = 713-8) 0.4 % BASO % (test code = 706-2) 0.2 % GRAN MAT x10^3(ANC) (test 8.43 10*3/uL 1.99-6.95 H code = 6710244856) IMM GRAN x10^3 (test code = 0.04 10*3/uL 0.00-0.06 9457193786) LYMPH x10^3 (test code = 1.92 10*3/uL 1.09-3.23 731-0) MONO x10^3 (test code = 0.76 10*3/uL 0.36-1.02 742-7) EOS x10^3 (test code = 0.04 10*3/uL 0.06-0.53 L 711-2) BASO x10^3 (test code = <0.03 0.01-0.09 704-7) Lab Interpretation (test Abnormal code = 09689-7) [id number]20[facility]-30 13:28:00 Test Item Value Reference Range Interpretation Comments NA (test code = 138 mmol/L 135-145 2936591558) K (test code = 4.5 mmol/L 3.5-5.0 0378334360) CL (test code = 99 mmol/L 98-108 0803336049) CO2 TOTAL (test code = 21 mmol/L 23-31 L 9363101344) AGAP (test code = 2-16 H 4185553235) BUN (test code = 16 mg/dL 7-23 5278648014) GLUCOSE (test code = 121 mg/dL 70-110 H 0007678363) CREATININE (test code = 0.93 mg/dL 0.60-1.25 7979534676) TOTAL BILI (test code = 1.3 mg/dL 0.1-1.1 H 3858636466) CALCIUM (test code = 9.9 mg/dL 8.6-10.6 7030409077) T PROTEIN (test code = 10.1 g/dL 6.3-8.2 H 1410739839) ALBUMIN (test code = 5.6 g/dL 3.5-5.0 H 8818480354) ALK PHOS (test code = 79 U/L 34-122 7779651532) ALTv (test code = 38 U/L 5-50 2-6) AST(SGOT) (test code = 37 U/L 13-40 4943920321) eGFR (test code = mL/min/1.73m2 9145877400) CECI (test code = CECI) Association of [...] tests). Lab Interpretation Abnormal (test code = 25116-6) [facility] 13:27:38 Test Item Value Reference Range Interpretation Comments LIPASE (test code = 9318444367) 194 U/L 0-220 Lab Interpretation (test code = Normal 25342-2) [facility]"
[2023-05-13 09:43] LABS: Absolute Lymphocytes (CBC) 1.6 K/uL (0.7-4.9); Hematocrit 42.1 % (39.6-49.0); Lymphocytes % 9.7 % (15.3-44.8); MCV 81.9 fL (80-100); MPV 7.4 fL (7.6-11.3); Platelets 316 thou/uL (152-406); RBC Red Blood Cell Count 5.14 M/uL (4.33-5.43)
[2023-05-13] MEDS ORDERED: FAMOTIDINE 20 MG/2 ML VIAL IV ONE (09:45)
[2023-05-13] MEDS ORDERED: ONDANSETRON 4 MG/2 ML VIAL ONE ×2 (09:45→12:52)
[2023-05-13] MEDS ORDERED: KETOROLAC 30 MG/ML INJ ONE (09:45)
[2023-05-13] MEDS ORDERED: NA CHLORIDE 0.9% 1,000 ML ONE (09:45)
[2023-05-13 10:00] LABS: Albumin 4.2 g/dL (3.4-5.0); Bilirubin Total 0.4 mg/dL (0.2-1.0); Potassium 3.7 mEq/L (3.5-5.1); Protein, Total 8.4 g/dL (6.4-8.2); Troponin High Sensitivity 7.1 pg/mL (<58.9)
--- NOTE | 2023-05-13 10:26 | RAD REPORT ---
EXAM DESCRIPTION: Eduart Single View05/13/2023 9:49 am CLINICAL HISTORY: CHEST PAIN COMPARISON: Chest Single View dated 01/11/2020; Chest Single View dated 02/01/2019; Chest Single View d ated 09/27/2018; Chest Single View dated 09/23/2018 TECHNIQUE: Portable AP view of the chest. FINDINGS: The lungs are clear. No pneumothorax or effusion. The cardiomediastinal contours are unre markable. IMPRESSION: No acute cardiopulmonary process.
[2023-05-13 10:29] LABS: Urine Bacteria None Seen /HPF (<20); Urine Bilirubin NEGATIVE (Negative); Urine Blood Negative (Negative); Urine Clarity Clear (Clear); Urine Color Light-Yellow (Yellow); Urine Glucose NEGATIVE (Negative); Urine Mucus 1+ /HPF (None Seen); Urine Protein TRACE (Negative); Urine RBC <5 /HPF (None Seen); Urine Urobilinogen Normal (Normal); Urine pH 7.5 (5.0-7.0)
--- NOTE | 2023-05-13 11:42 | RAD REPORT ---
EXAM DESCRIPTION: CT - Abdomen Pelvis W Contrast - 05/13/2023 10:53 am CLINICAL HISTORY: ABD PAIN COMPARISON: Abdomen Pelvis W Contrast dated 01/11/2023; Abdomen Pelvis W Contrast dated 10/06/2022; Abdomen Pelvis W Contrast dated 12/27/2016; CT ABD PELVIS W CONTRAST dated 10/31/2014 TECHNIQUE: Thin cut axial CT imaging of the abdomen and pelvis was performed following intravenous a dministration of 100 mL Isovue 300. Multiplanar reformats were generated and reviewed. All CT scans are performed using dose optimization technique as appropriate and may include automated exposure control or mA/KV adjustment according to patient size. FINDINGS: No suspicious findings in the lung bases. The liver, spleen, and pancreas show no suspicious findings. Gallbladder and biliary tree are also wi thout suspicious finding. Symmetric renal function is seen with no hydronephrosis or suspicious renal mass. No dilated bowel loops or bowel wall thickening. No free air, free fluid or inflammatory stranding. N o hernia, mass or bulky lymphadenopathy. The urinary bladder is decompressed limiting evaluation, wit hout significant finding. No suspicious bony findings. IMPRESSION: No acute intra-abdominal process.
--- NOTE | 2023-05-13 12:47 | EDPHYS ---
Physician Documentation [facility] Name: Nacho Lopez Age: 22 yrs Sex: Male : 2000 Arrival Date: 05/13/2023 Time: 09:13 Bed 14 Private MD: ED Physician Amara Funez HPI: 05/13 09:30 This 22 yrs old Male presents to ER via Ambulatory with complaints of cp Nausea/Vomiting/Diarrhea, Chest Pain. 09:30 The patient presents to the emergency department with nausea, that is moderate, cp vomiting, that is continuous, described as bilious, abdominal pain, of the epigastric area. Onset: The symptoms/episode began/occurred last night. Possible causes: sick contacts, by family. 09:30 Associated signs and symptoms: Pertinent positives: anorexia, diarrhea, Pertinent cp negatives: constipation, fever, GI bleeding. Severity of symptoms: in the emergency department the symptoms are unchanged despite home interventions. Historical: - Allergies: 09:25 NKA; nj1 - PMHx: 09:25 GERD; nj1 - PSHx: 09:25 None; nj1 - Immunization history:: Client reports having NOT received the Covid vaccine. - Social history:: Smoking status: Reported history of juuling and/or vaping. ROS: 09:35 Constitutional: Positive for poor PO intake, Negative for fever. cp 09:35 Cardiovascular: Positive for chest pain, of the mid lower chest. cp 09:35 Respiratory: Negative for cough, shortness of breath, wheezing. 09:35 Abdomen/GI: Positive for abdominal pain, nausea and vomiting, diarrhea, Negative for hematemesis, black/tarry stool, rectal bleeding. 09:35 Eyes: Negative for injury, pain, redness, and discharge. cp 09:35 ENT: Negative for drainage from ear(s), ear pain, difficulty swallowing, difficulty handling secretions. 09:35 Neuro: Negative for altered mental status, dizziness, headache, weakness. 09:35 All other systems are negative. Exam: 09:40 ECG was reviewed by the Attending Physician. cp 09:42 Constitutional: The patient appears in no acute distress, alert, awake, cp non-diaphoretic, non-toxic, well developed, well nourished, uncomfortable. 09:42 Head/Face: Normocephalic, atraumatic. cp 09:42 Eyes: Periorbital structures: appear normal, Conjunctiva: normal, no exudate, no cp injection, Sclera: no appreciated abnormality, Lids and lashes: appear normal, bilaterally. 09:42 ENT: External ear(s): are unremarkable, Nose: is normal, Mouth: Lips: moist, Oral cp mucosa: pink and intact, moist, Posterior pharynx: is normal, airway is patent, no erythema, no exudate. 09:42 Chest/axilla: Inspection: normal, Palpation: is normal, no crepitus, no tenderness. cp 09:42 Cardiovascular: Rate: normal, Rhythm: regular. 09:42 Respiratory: the patient does not display signs of respiratory distress, Respirations: normal, no use of accessory muscles, no retractions, labored breathing, is not present, Breath sounds: are clear throughout, no decreased breath sounds, no stridor, no wheezing. 09:42 Abdomen/GI: Inspection: abdomen appears normal, Bowel sounds: active, all quadrants, Palpation: soft, in all quadrants, moderate abdominal tenderness, in the epigastric area, rebound tenderness, is not appreciated, involuntary guarding, is not appreciated. 09:42 Back: CVA tenderness, is absent. 09:42 Skin: cellulitis, is not appreciated, no rash present. 09:42 Neuro: Orientation: to person, place \T\ time. Mentation: is normal, Motor: moves all fours, strength is normal, Sensation: is normal. Vital Signs: 09:16 BP 150 / 95; Pulse 63; Resp 16; Pulse Ox 99% on R/A; db 09:17 BP 150 / 95; Pulse 63; Resp 18; Temp 97.8; Pulse Ox 99% on R/A; Weight 129.27 kg; nj1 Height 6 ft. 3 in. ; Pain 7/10; 10:17 BP 154 / 86; Pulse 62; Resp 16; Pulse Ox 99% on R/A; db 11:00 BP 148 / 84; Pulse 60; Resp 16; Pulse Ox 100% ; db 12:30 BP 152 / 93; Pulse 67; Resp 16 S; Pulse Ox 100% ; db 09:17 Body Mass Index 35.62 (129.27 kg, 190.5 cm) banner 09:17 Pain Scale: Adult banner MDM: 09:21 Patient medically screened. cp 10:00 Differential diagnosis: gastritis, cholecystitis, pancreatitis, appendicitis, viral cp gastroenteritis, gastroenteritis. 12:46 Data reviewed: vital signs, nurses notes, lab test result(s), EKG, radiologic studies, cp CT scan, plain films. 12:46 I considered the following discharge prescriptions or medication management in the emergency department Medications were administered in the Emergency Department. See MAR. Independent interpretation of the following test(s) in the Emergency Department EKG: See my EKG interpretation above X-Ray: My interpretation is image of chest negative for infiltrates. Counseling: I had a detailed discussion with the patient and/or guardian regarding the historical points, exam findings, and any diagnostic results supporting the discharge/admit diagnosis, lab results, radiology results, to return to the emergency department if symptoms worsen or persist or if there are any questions or concerns that arise at home. Response to treatment: the patient's symptoms have markedly improved after treatment, and as a result, I will discharge patient. 05/13 09:24 Order name: CBC with Diff; Complete Time: 10:05 05/13 11:52 Interpretation: Normal except: WBC 16.50; MPV 7.4; AUDREY% 80.2; LYM% 9.7; NEUT A 13.2. 05/13 09:24 Order name: CMP; Complete Time: 10:05 05/13 11:52 Interpretation: Normal except: CL 108; GLUC 116; AST 14; TP 8.4; GLOB 4.2; A/G 1.0. 05/13 09:24 Order name: Lipase; Complete Time: 10:05 05/13 09:24 Order name: Urinalysis w/ reflexes; Complete Time: 11:25 05/13 11:25 Interpretation: Normal except: UPH 7.5; UPROT TRACE. 05/13 09:24 Order name: Troponin High Sensitivity; Complete Time: 10:05 05/13 11:52 Interpretation: Reviewed. 05/13 10:05 Order name: COVID-19 SARS RT PCR; Complete Time: 11:25 05/13 10:05 Order name: Influenza Screen (a \T\ B); Complete Time: 11:25 05/13 09:24 Order name: XRAY Chest (1 view); Complete Time: 11:25 05/13 10:05 Order name: CT Abd/Pelvis - IV Contrast Only; Complete Time: 11:45 cp 05/13 09:24 Order name: EKG; Complete Time: 09:24 cp 05/13 09:24 Order name: IV Saline Lock; Complete Time: 09:34 cp 05/13 09:24 Order name: Labs collected and sent; Complete Time: 09:34 cp 05/13 09:24 Order name: EKG - Nurse/Tech; Complete Time: 09:34 cp 05/13 10:05 Order name: NPO; Complete Time: 10:14 cp 05/13 11:46 Order name: PO challenge; Complete Time: 12:44 cp EC:40 Rate is 60 beats/min. Rhythm is regular. AL interval is normal. QRS interval is normal. cp QT interval is normal. T waves are Inverted in leads III, aVR. Interpreted by me. Reviewed by me. Administered Medications: 09:45 Drug: NS 0.9% IV 1000 ml Route: IV; Rate: 1 bolus; Site: right antecubital; db 12:56 Follow up: Response: No adverse reaction; IV Status: Completed infusion; IV Intake: db 1000ml 09:45 Drug: TORadol - Ketorolac IVP 15 mg Route: IVP; Site: right antecubital; db 12:56 Follow up: Response: No adverse reaction db 09:45 Drug: Ondansetron IVP 4 mg Route: IVP; Site: right antecubital; db 12:57 Follow up: Response: No adverse reaction db 09:51 Drug: Famotidine IVP 20 mg Route: IVP; Site: right antecubital; db 12:56 Follow up: Response: No adverse reaction db 12:45 Drug: Ondansetron IVP 4 mg Route: IVP; Site: right antecubital; db 12:56 Follow up: Response: No adverse reaction db Disposition Summary: 05/13/23 12:47 Discharge Ordered Location: Home cp Problem: new cp Symptoms: have improved cp Condition: Stable cp Diagnosis - Nausea with vomiting, unspecified cp - Diarrhea, unspecified cp Followup: cp - With: Private Physician - When: 1 - 2 days - Reason: Worsening of condition Discharge Instructions: - Discharge Summary Sheet cp - Food Choices to Help Relieve Diarrhea, Adult cp - Diarrhea, Adult cp - Nausea and Vomiting, Adult cp Forms: - Medication Reconciliation Form cp - Thank You Letter cp - Antibiotic Education cp - Prescription Opioid Use cp - Patient Portal Instructions cp - Leadership Thank You Letter cp Prescriptions: - Zofran 4 mg Oral Tablet - take 1 tablet by ORAL route every 12 hours As needed; 20 tablet; Refills: 0, cp Product Selection Permitted - dicyclomine 20 mg Oral Tablet - take 1 tablet by ORAL route 4 times per day; 30 tablet; Refills: 0, Product cp Selection Permitted Signatures: Dispatcher [employer] EDMS Rik Banuelos PA PA cp Chelly Nichols, RN RN db Lyn Langford RN RN nj1 Corrections: (The following items were deleted from the chart) 10:37 10:05 Abdomen Limited+[id number] ordered. EDKS EDMS
--- NOTE | 2023-05-13 12:47 | ER ---
Nurse's Notes [facility] Name: Nacho Lopez Age: 22 yrs Sex: Male : 2000 Arrival Date: 05/13/2023 Time: 09:13 Bed 14 Private MD: Diagnosis: Nausea with vomiting, unspecified;Diarrhea, unspecified Presentation: 05/13 09:17 Chief complaint: Patient states: Nausea, vomiting and diarrhea since this morning. CO nj1 epigastric pain as well, states it feels like burning, worse with inspiration. 09:17 Coronavirus screen: Vaccine status: Patient reports being unvaccinated. Ebola Screen: nj1 Patient denies travel to an Ebola-affected area in the 21 days before illness onset. Initial Sepsis Screen: Does the patient meet any 2 criteria? No. Patient's initial sepsis screen is negative. Does the patient have a suspected source of infection? No. Patient's initial sepsis screen is negative. Risk Assessment: Do you want to hurt yourself or someone else? Patient reports no desire to harm self or others. Onset of symptoms was May 13, 2023. 09:17 Method Of Arrival: Ambulatory [facility] 09:17 Acuity: LKAUS 3 nj1 Historical: - Allergies: 09:25 NKA; nj1 - PMHx: 09:25 GERD; nj1 - PSHx: 09:25 None; nj1 - Immunization history:: Client reports having NOT received the Covid vaccine. - Social history:: Smoking status: Reported history of juuling and/or vaping. Screenin:21 [facility] ED Fall Risk Assessment (Adult) History of falling in the last 3 months, db including since admission No falls in past 3 months (0 pts) Confusion or Disorientation No (0 pts) Intoxicated or Sedated No (0 pts) Impaired Gait No (0 pts) Mobility Assist Device Used No (0 pt) Altered Elimination No (0 pt) Score/Fall Risk Level 0 - 2 = Low Risk Oriented to surroundings, Maintained a safe environment. Abuse screen: Denies threats or abuse. Denies injuries from another. Nutritional screening: No deficits noted. Tuberculosis screening: No symptoms or risk factors identified. Assessment: 09:20 Pain: Complains of pain in abdomen. GI: Abdomen is flat, Pt is actively vomiting. GI: db Reports lower abdominal pain, nausea, vomiting. 10:21 Reassessment: Patient appears in no apparent distress at this time. Patient and/or db family updated on plan of care and expected duration. Pain level reassessed. Patient is alert, oriented x 3, equal unlabored respirations, skin warm/dry/pink. General: Appears in no apparent distress. comfortable, Behavior is calm, cooperative. 11:00 Reassessment: PT RETURNED TO ROOM FROM CT. db 12:44 Reassessment: Patient appears in no apparent distress at this time. Patient and/or db family updated on plan of care and expected duration. Pain level reassessed. Patient is alert, oriented x 3, equal unlabored respirations, skin warm/dry/pink. PATIENT TOLERATING WATER FOR PO CHALLENGE. 12:55 Reassessment: Patient appears in no apparent distress at this time. Patient and/or db family updated on plan of care and expected duration. Pain level reassessed. Patient is alert, oriented x 3, equal unlabored respirations, skin warm/dry/pink. Patient states feeling better. Patient states symptoms have improved. Vital Signs: 09:16 BP 150 / 95; Pulse 63; Resp 16; Pulse Ox 99% on R/A; db 09:17 BP 150 / 95; Pulse 63; Resp 18; Temp 97.8; Pulse Ox 99% on R/A; Weight 129.27 kg; nj1 Height 6 ft. 3 in. ; Pain 7/10; 10:17 BP 154 / 86; Pulse 62; Resp 16; Pulse Ox 99% on R/A; db 11:00 BP 148 / 84; Pulse 60; Resp 16; Pulse Ox 100% ; db 12:30 BP 152 / 93; Pulse 67; Resp 16 S; Pulse Ox 100% ; db 09:17 Body Mass Index 35.62 (129.27 kg, 190.5 cm) nj1 09:17 Pain Scale: Adult [facility] ED Course: 09:16 Patient arrived in ED. mg5 09:16 Rik Banuelos PA is PHCP. cp 09:17 Amara Funez MD is Attending Physician. cp 09:20 Chelly Nichols, MICKY is Primary Nurse. db 09:25 Triage completed. nj1 09:26 Arm band placed on. nj1 09:34 Troponin High Sensitivity Sent. bc6 09:34 CBC with Diff Sent. bc6 09:34 CMP Sent. bc6 09:34 Lipase Sent. bc6 09:34 Missed attempt(s): 22 gauge in right antecubital area. bc6 09:35 Inserted saline lock: 22 gauge in right antecubital area, using aseptic technique. bc6 09:51 XRAY Chest (1 view) In Process Unspecified. EDMS 10:16 COVID-19 SARS RT PCR Sent. aw1 10:16 Influenza Screen (a \T\ B) Sent. aw1 10:24 Urinalysis w/ reflexes Sent. aw1 10:55 CT Abd/Pelvis - IV Contrast Only In Process Unspecified. EDMS 12:44 Patient has correct armband on for positive identification. Bed in low position. Call db light in reach. Side rails up X 1. 12:49 No provider procedures requiring assistance completed. db 12:53 Provided Education on: DISCHARGE. db 12:53 IV discontinued, intact, bleeding controlled, No redness/swelling at site. db Administered Medications: 09:45 Drug: NS 0.9% IV 1000 ml Route: IV; Rate: 1 bolus; Site: right antecubital; db 12:56 Follow up: Response: No adverse reaction; IV Status: Completed infusion; IV Intake: db 1000ml 09:45 Drug: TORadol - Ketorolac IVP 15 mg Route: IVP; Site: right antecubital; db 12:56 Follow up: Response: No adverse reaction db 09:45 Drug: Ondansetron IVP 4 mg Route: IVP; Site: right antecubital; db 12:57 Follow up: Response: No adverse reaction db 09:51 Drug: Famotidine IVP 20 mg Route: IVP; Site: right antecubital; db 12:56 Follow up: Response: No adverse reaction db 12:45 Drug: Ondansetron IVP 4 mg Route: IVP; Site: right antecubital; db 12:56 Follow up: Response: No adverse reaction db Medication: 12:49 VIS not applicable for this client. db Intake: 12:56 IV: 1000ml; Total: 1000ml. db Outcome: 12:47 Discharge ordered by MD. cp 12:49 Condition: stable db 12:53 Discharged to home ambulatory. db 12:53 Discharge instructions given to patient, Instructed on discharge instructions, follow up and referral plans. Prescriptions given X 2. 12:57 Patient left the ED. db Signatures: Dispatcher [employer] EDMS Rik Banuelos PA PA cp Benton, Danielle, RN RN db Minal Soto bc6 Lyn Langford RN RN nj1 Miesha Cm aw1 Ene Fang mg5 Corrections: (The following items were deleted from the chart) 12:50 12:49 Provided Education on: admit. db db : 12:49 Patient admitted, IV remains in place. db db : 12:49 Admitted to ER Hold. Please see [facility] for further documentation. db db :50 12:49 Instructed on the need for admit, db db
[2023-05-13 13:19] VITALS: TEMP 97.8
[2023-05-13 13:22] VITALS: O2SAT 100
[2023-05-13 13:23] VITALS: BP 152/93
--- NOTE | 2023-05-14 14:39 | EKG ---
Test Date: 2023-05-13 Test Time: 09:33:21 Gum Worker: HERMANN MEASUREMENT RESULTS: Intervals: Rate: 60 AR: 158 QRSD: 100 QT: 392 QTc: 392 [place]: P: 68 AR: 158 QRS: 57 T: 2 INTERPRETIVE STATEMENTS: Normal sinus rhythm Normal ECG Compared to ECG 01/11/2023 09:02:13 T-wave abnormality no longer present Possible ischemia no longer present Prolonged QT interval no longer present Electronically Signed On 05-14-23 14:36:59 CDT by Sylvain Shah
== END 2023-05-13 12:57 | disposition home or self-care (01) ==
LOC: ER 09:13
DX: R11.2 Nausea with vomiting, unspecified (principal); R19.7 Diarrhea, unspecified; R07.9 Chest pain, unspecified; Z20.822 Contact with and (suspected) exposure to COVID-19
CPT/HCPCS: 96361; 93005; 85025; 81001; 36415; 84484; 83690; 80053; 87635; 87804 ×2; 74177; 71045; 96375; 96374; 99284; Q9967; J2405 ×2; J7030

== ENCOUNTER 2025-04-30 16:22 | Emergency (ER) | payer SELFPAY ==
--- OUTSIDE RECORDS SUMMARY | 2025-04-30 16:25 | XMS REPORT | Continuity of Care Document ---
Author Name Unknown Address [address] 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 Name Role Phone PCP, PATIENT DOES NOT HAVE A Primary Care Physic verona Unavailable Bipin Peterson DO Attending Clinician [phone] BIPIN PETERSON Attending Clinician Unavailable Doctor Unassigned, [place] Attending Clinician U Martha Zuniga DO Attending Clinician [phone] Brian Bonner MD Attending Clinician [phone] ENRIQUE STRATTON Attending Clinician UnavailEnrique Shipman MD Attending Clinician [phone] Lisa Monet Attending Clinician [phone] SUKUMAR KUMAR Attending Clinician Unavailable Sukumar Kumar MD Attending Clinician [phone] Georges Attending Clinician Unavailable BIPIN PETERSON Admitting Clinician Unavailable ENRIQUE STRATTON Admitting Clinician UnavailEnrique Shipman MD Admitting Clinician [phone] SUKUMAR KUMAR Admitting Clinician Unavailable Georges Admitting Clinician Unavailable Payers Payer Name Policy Type Policy Number Effective Date Expirati on Date Source COVID19 HRSA UNINSURED [id number] 2020 00:00:00 Problems Condition Name Condition Details Condition Category Status Onset Date Resolution Date Last Treatment Date Treating Clinician Comments Source Obesity (BMI 30-39.9) Obesity (BMI 30-39.9) Disease Active 01-12 00:00: 00 [facility] Pneumomedi astinum Pneumomedi astinum Disease Active 01-11 00:00: 00 [facility] Allergies, Adverse Reactions, Alerts Allergy Name Allergy Type Status Severity Reaction(s) Onset Date Inactive Date Treating Clinician Comments Source NO KNOWN ALLERGIE S Drug Class Active [facility] Social History Social Habit Start Date Stop Date Quantity Comments Source Exposure to SARS-CoV-2 (event) 2021-12-20 00:00:00 2021-12-30 08:42:00 Not sure [facility] Tobacco use and exposure 2015-05-14 00:00:00 2015-05-14 00:00:00 Never used [facility] Sex Assigned At 2000 00:00:00 2000 00:00:00 [facility] Smoking Status Start Date Stop Date Source Never smoker [facility] Medications Ordered Medication Name Filled Medication Name Start Date Stop Date Current Medication? Ordering Clinician Indication Dosage Frequency Signature (SIG) Comments Components Source iopamidol (ISOVUE 370-500 mL) injection 120 mL 12-30 14:15: 00 12-30 14:15 :00 No [id number] 120mL 120 mL, Intravenou s, ONCE, 1 dose, On Tue12/30/21 at 0915, Routine [facility] pantoprazol e (PROTONIX) injection 40 mg 12-30 13:45: 00 12-30 13:05 :00 No 40mg 40 mg, Slow IV Push, ONCE, 1 dose, On Tue12/30/21 at 0845 [facility] ondansetron (ZOFRAN (PF)) injection 4 mg 12-30 13:45: 00 12-30 13:04 :00 No 4mg 4 mg, Slow IV Push, ONCE, 1 dose, On Tue12/30/21 at 0845, Routine [facility] maalox:diph enhydrAMINE :lidocaine 2 % viscous 1:1:1 (FIRST-MOUT HWASH BLM) oral suspension 15 mL 12-30 13:45: 00 12-30 13:05 :00 No 15mL 15 mL, Oral, ONCE, 1 dose, On Tue12/30/21 at 0845, Routine [facility] NaCl 0.9% (NS) bolus infusion 1,000 mL 12-30 12:45: 00 12-30 14:14 :00 No 1000mL at 999 mL/hr, 1,000 mL, IV Infusion, ONCE, 1 dose, On Tue12/30/21 at 0745, STAT [facility] sucralfate 1 gram tablet 12-30 00:00: 00 Yes [id number] 1g Take 1 tablet by mouth before meals and at bedtime. [facility] ondansetron 4 mg disintegrat ing tablet 12-30 00:00: 00 Yes [id number] 4mg Take 1 tablet by mouth every 8 (eight) hours as needed for Nausea and Vomiting (N/V). [facility] pantoprazol e 40 mg EC tablet 12-30 00:00: 00 Yes [id number] 40mg Take 1 tablet by mouth daily. [facility] famotidine 20 mg tablet 04-13 00:00: 00 Yes [id number] 20mg Take 1 tablet by mouth 2 (two) times daily. [facility] ondansetron 4 mg disintegrat ing tablet 04-13 00:00: 00 12-30 00:00 :00 No [id number] 4mg Take 1 tablet by mouth every 8 (eight) hours as needed for Nausea and Vomiting (N/V). [facility] lisinopril 10 mg tablet 02-04 00:00: 00 Yes [id number] 10mg Take 1 tablet by mouth at bedtime. [facility] acetaminoph en-codeine (TYLENOL-CO DEINE #3) 300-30 mg tablet 02-04 00:00: 00 Yes [id number] 1{tbl} Take 1 tablet by mouth every 4 (four) hours as needed for Pain (scale 7-10). [facility] nitroglycer in 0.4 mg sublingual tablet 02-04 00:00: 00 12-30 00:00 :[id number] 1 tablet under the tongue every 5 (five) minutes as needed for Chest pain. [facility] ibuprofen (MOTRIN IB) 200 mg tablet 11-17 00:00: 00 Yes 400mg Take 2 tablets by mouth every 6 (six) hours as needed for Pain (scale 1-3) for up to 30 doses. [facility] acetaminoph en (TYLENOL EXTRA STRENGTH) 500 mg tablet 11-17 00:00: 00 Yes 500mg Take 1 tablet by mouth every 6 (six) hours as needed for Pain for up to 20 doses. [facility] ondansetron 4 mg disintegrat ing tablet 11-17 00:00: 00 12-30 00:00 :00 No 4mg Take 1 tablet by mouth every 8 (eight) hours as needed for Nausea and Vomiting (N/V) for up to 10 doses. [facility] Pantoprazol e (PROTONIX) 40 mg delayed-rel ease suspension 11-11 00:00: 00 12-30 00:00 :00 No 40mg Take 40 mg by mouth daily. [facility] sucralfate 1 gram tablet 11-11 00:00: 00 12-30 00:00 :00 No 1g Take 1 tablet by mouth before meals and at bedtime. [facility] Vital Signs Vital Name Observation Time Observation Value Comments Louie jai Systolic blood pressure 2021-12-30 12:36:52 169 mm[Hg] [facility] Diastolic blood pressure 2021-12-30 12:36:52 103 mm[Hg] [facility] Heart rate 2021-12-30 12:33:00 89 /min [facility] Body temperature 2021-12-30 12:33:00 37.28 Denise [facility] Respiratory rate 2021-12-30 12:33:00 18 /min [facility] Body height 2021-12-30 12:33:00 190.5 cm [facility] Body weight 2021-12-30 12:33:00 154.223 kg [facility] BMI 2021-12-30 12:33:00 42.50 kg/m2 [facility] Oxygen saturation in Arterial blood by Pulse oximetry 2021-12-30 12:33:00 98 /min [place] [facility] Procedures Procedure Date / Time Performed Performing Clinicia n Source CT ABDOMEN PELVIS W CONTRAST 2021-12-30 13:05:27 Bipin Peterson [facility] LIPASE 2021-12-30 12:50:00 [facility] COMP. METABOLIC PANEL ([id number]) 2021-12-30 12:50:00 Bipin Peterson [facility] CBC WITH DIFF 2021-12-30 12:50:00 Singer Bipin [facility] URINALYSIS 2021-12-30 12:50:00 [facility] NOTICE OF PRIVACY PRACTICES 2021-12-30 12:30:03 Doctor Unassigned, [place] [facility] CONSENT/REFUSAL FOR DIAGNOSIS AND TREATMENT 2021-12-30 12:29:44 Doctor Unassigned, [place] [facility] Encounters Start Date/Time End Date/Time Encounter Type Admission Type Attending Clinicians Care Facility Care Department Encounter ID Source 2021-07-12 10:18:03 Emergency [facility] [id number] [facility] 2021-07-10 10:15:11 Emergency [facility] [id number] [facility] 2021-12-30 07:37:00 2021-12-30 09:20:00 Emergency Bipin Peterson [facility] [id number] 350.1.13.10 4.2.7.2.686 [id number] [facility] 2021-12-30 07:37:00 2021-12-30 09:20:00 Emergency X BIPIN PETERSON [facility] ERT [id number] [facility] 2021-12-30 00:00:00 2021-12-30 00:00:00 Orders Only Doctor Unassigned, [place] [facility] [id number] 350.1.13.10 4.2.7.2.686 [id number] [facility] 2020-12-12 09:36:00 2020-12-12 10:28:00 Emergency Martha Al [facility] [id number] 350.1.13.10 4.2.7.2.686 [id number] 2020-12-12 00:00:00 2020-12-12 00:00:00 Orders Only Doctor Unassigned, [place] [facility] [id number] 350.1.13.10 4.2.7.2.686 [id number] 2020-04-13 12:58:00 2020-04-13 16:44:00 Emergency Brian Bon[facility] [id number] 350.1.13.10 4.2.7.2.686 [id number] 2020-02-01 13:30:00 2020-02-01 13:30:00 Outpatient R ENRIQUE STRATTON [facility] [id number] [facility] 2020-02-01 07:32:27 2020-02-01 07:47:27 Telemedici ne Visit Enrique Stratton [facility] 1.20.114 350.1.13.10 4.2.7.2.686 [id number] 2020-01-31 13:00:00 2020-01-31 13:00:00 Outpatient R [facility] [id number] [facility] 2020-01-12 11:38:28 2020-01-13 13:59:00 Outpatient X ENRIQUE STRTATON [facility] [id number] [facility] 2020-01-12 11:38:28 2020-01-13 13:59:00 Emergency Lisa Roberts Enrique Lee [facility] [id number] 350.1.13.10 4.2.7.2.686 [id number] 2019-12-31 00:44:11 2019-12-31 02:52:00 Emergency X SUKUMAR KUMAR [facility] ERT [id number] [facility] 2019-12-31 00:44:11 2019-12-31 02:52:00 Emergency Sukumar Kumar [facility] [id number] 350.1.13.10 4.2.7.2.686 [id number] Results Test Description Test Time Test Comments Results Result Co mments Source [facility] ([id number])2021-12-30 13:28:00* Test Item Value Reference Range Interpretation Comme nts NA (test code = 8514364607) 138 mmol/L 135-145 K (test code = 9386941114) 4.5 mmol/L 3.5-5.0 CL (test code = 4629321645) 99 mmol/L 98-108 CO2 TOTAL (test code = 8294053284) 21 mmol/L 23-31 L AGAP (test code = 3841997533) 2-16 H BUN (test code = 4591489866) 16 mg/dL 7-23 GLUCOSE (test code = 1173561309) 121 mg/dL 70-110 H CREATININE (test code = 1203738703) 0.93 mg/dL 0.60-1.25 TOTAL BILI (test code = 5757115826) 1.3 mg/dL 0.1-1.1 H CALCIUM (test code = 4526697083) 9.9 mg/dL 8.6-10.6 T PROTEIN (test code = 7135336084) 10.1 g/dL 6.3-8.2 H ALBUMIN (test code = 6870936374) 5.6 g/dL 3.5-5.0 H ALK PHOS (test code = 9397316773) 79 U/L 34-122 ALTv (test code = 1742-6) 38 U/L 5-50 AST(SGOT) (test code = 2802833324) 37 U/L 13-40 eGFR (test code = 8996345979) mL/min/1.73m2 CECI (test code = CECI) Association of [...] or abnormalities in imaging tests). Lab Interpretation (test code = 89058-9) [facility]normal [facility] 13:27:38* Test Item Value Reference Range Interpretation Comme nts LIPASE (test code = 9307108674) 194 U/L 0-220 Lab Interpretation (test cod e = 95044-1) Normal [facility]"
[2025-04-30] MEDS ORDERED: MORPHINE 4 MG/ML SYR ONE (17:02)
[2025-04-30] MEDS ORDERED: NA CHLORIDE 0.9% 1,000 ML ONE (17:03)
[2025-04-30 17:09] LABS: Absolute Lymphocytes (CBC) 1.6 K/uL (0.7-4.9); Hematocrit 43.8 % (39.6-49.0); Hemoglobin 14.6 g/dL (13.6-17.9); MCH 27.1 pg (27.0-35.0); MCHC 33.2 g/dL (32.0-36.0); MCV 81.6 fL (80-100); MPV 7.8 fL (7.6-11.3); Nucleated RBC Absolute Count 0.0 (0-0); Nucleated Red Blood Cells % 0.0 % (0-0); RBC Red Blood Cell Count 5.37 M/uL (4.33-5.43); White Blood Count 12.70 thou/uL (4.3-10.9)
[2025-04-30 17:27] LABS: ALT/SGPT 39.0 U/L (16-61); AST/SGOT 20.0 U/L (15-37); Albumin 3.8 g/dL (3.4-5.0); Albumin/Globulin Ratio 1.1 (1.1-1.8); Alkaline Phosphatase 63.0 U/L (45-117); Anion Gap 8.7 mEq/L (5.0-15.0); BUN Blood Urea Nitrogen 11.0 mg/dL (7-18); Globulin 3.6 g/dL (2.3-3.5); Glucose Level 128.0 mg/dL (74-106); Lipase 42.0 U/L (13-75); Potassium 3.7 mEq/L (3.5-5.1)
--- NOTE | 2025-04-30 18:41 | RAD REPORT ---
EXAMINATION: CT ABDOMEN AND PELVIS WITH CONTRAST CLINICAL INDICATION: ABD PAIN TECHNIQUE: CT abdomen and pelvis was performed, after the administration of IV contrast, as per [facility] protocol. Axial, sagittal and coronal reconstructions were obtained. One or more of the following dose reduction techniques were used: Automated exposure control, adjustment of the mA and k V according to patient size, and iterative reconstruction. Unless otherwise specified, incidental findings do not require dedicated imaging follow-up. COMPARISON: No prior exam. FINDINGS: LOWER CHEST: The visualized lung bases are clear. LIVER: Normal in size and contour. No focal lesion. Grossly unremarkable gallbladder. SPLEEN: Normal size. No focal lesion. PANCREAS: No mass, ductal dilation, or sujey-pancreatic fluid. ADRENALS: Normal; no mass. KIDNEYS: Normal size and contour. No hydronephrosis. GASTROINTESTINAL TRACT: No evidence of free air, significant intra-abdominal free fluid, bowel obstru ction or abscess. APPENDIX: Normal appendix. LYMPH NODES: No lymphadenopathy. MUSCULOSKELETAL: Mild multilevel spinal degenerative changes. IMPRESSION: No acute or concerning abnormalities seen in the abdomen or pelvis.
--- NOTE | 2025-04-30 18:54 | EDPHYS ---
Physician Documentation [facility] Name: Nacho Lopez Age: 24 yrs Sex: Male : 2000 Arrival Date: 04/30/2025 Time: 16:22 Bed 13 Private MD: ED Physician Amara Funez HPI: 04/30 18:00 This 24 yrs old Male presents to ER via Ambulatory with complaints of dr5 Abdominal Pain, Nausea/Vomiting/Diarrhea. 18:00 The patient presents with abdominal pain in the epigastric area. Onset: The dr5 symptoms/episode began/occurred 3 day(s) ago. Patient is a 24-year-old male with history of gastritis and GERD coming in for epigastric abdominal pain has been going on since Tuesday. Patient reports that he had pain Tuesday and Tuesday with relief on Tuesday. Patient reports that the epigastric pain started worse this morning with nausea and vomiting. Patient does report occasional marijuana use. Patient denies fever, chest pain, shortness of breath, constipation.. Historical: - Allergies: 16:33 NKA; dd2 - PMHx: 16:33 GERD; dd2 - PSHx: 16:33 None; dd2 - Immunization history:: Adult Immunizations unknown. - Infectious Disease History:: Denies. - Social history:: Smoking status: Reported history of juuling and/or vaping. ROS: 18:00 Constitutional: as per hpi dr5 Exam: 18:00 Constitutional: This is a well developed, well nourished patient who is awake, alert, dr5 and in no acute distress. Head/Face: Normocephalic, atraumatic. Eyes: Pupils equal round and reactive to light, extra-ocular motions intact. Lids and lashes normal. Conjunctiva and sclera are non-icteric and not injected. Cornea within normal limits. Periorbital areas with no swelling, redness, or edema. Neck: Trachea midline, no thyromegaly or masses palpated, and no cervical lymphadenopathy. Supple, full range of motion without nuchal rigidity, or vertebral point tenderness. No Meningismus. Chest/axilla: Normal chest wall appearance and motion. Nontender with no deformity. No lesions are appreciated. Cardiovascular: Regular rate and rhythm with a normal S1 and S2. Normal PMI, no JVD. No pulse deficits. Respiratory: Lungs have equal breath sounds bilaterally, clear to auscultation. No rales, rhonchi or wheezes noted. No increased work of breathing, no retractions or nasal flaring. Back: No spinal tenderness. No costovertebral tenderness. Full range of motion. Skin: Warm, dry with normal turgor. Normal color with no rashes, no lesions, and no evidence of cellulitis. MS/ Extremity: Pulses equal, no cyanosis. Neurovascular intact. Full, normal range of motion. Neuro: Awake and alert, GCS 15, oriented to person, place, time, and situation. Cranial nerves II-XII grossly intact. Motor strength 5/5 in all extremities. Sensory grossly intact. Cerebellar exam normal. Normal gait. 18:00 Abdomen/GI: Inspection: abdomen appears normal, Bowel sounds: normal, Palpation: abdomen is soft and non-tender, in all quadrants, Vital Signs: 16:31 BP 176 / 122; Pulse 65; Resp 17; Temp 98.5; Pulse Ox 100% ; Pain 10/10; dd2 16:43 BP 159 / 100; Pulse 61; Resp 17; Pulse Ox 100% ; jb4 17:52 BP 173 / 95; Pulse 56; Resp 16; Pulse Ox 100% on R/A; jb4 18:54 BP 161 / 97; Pulse 63; Resp 16; Pulse Ox 99% on R/A; jb4 16:31 Pain Scale: Adult dd2 MDM: 16:24 Medical Screening Exam initiated dr5 19:52 Differential diagnosis: appendicitis, cholecystitis, Cholelithiasis, diverticulitis, dr5 gastritis, gastroesophageal reflux disease, non-specific abd pain, pancreatitis. Data reviewed: vital signs, nurses notes, lab test result(s), amylase and lipase, CBC, white blood cell count, hemoglobin, hematocrit, platelets, electrolytes, sodium, potassium, chloride, serum bicarbonate, BUN, creatinine, serum glucose, EKG, radiologic studies, CT scan. Consideration of Admission/Observation Escalation of care including admission/observation considered. Admission considered patient found to have pancreatitis or p.o. intolerance. I considered the following discharge prescriptions or medication management in the emergency department I discussed and recommended Over The Counter medications, Medications were administered in the Emergency Department. See MAR. Care significantly affected by the following chronic conditions: GERD. Care significantly affected by the following Social Determinants of Health: Poor access to healthcare and/or lack of insurance, Poor access to transportation, Problems related to employment. Counseling: I had a detailed discussion with the patient and/or guardian regarding the historical points, exam findings, and any diagnostic results supporting the discharge/admit diagnosis, the presence of at least one elevated blood pressure reading (>120/80) during this emergency department visit, lab results, radiology results, the need for outpatient follow up, for definitive care, a family practitioner, a bus matron, to return to the emergency department if symptoms worsen or persist or if there are any questions or concerns that arise at home. Medication response: morphine relieved the patient's pain. Symptoms have resolved, Zofran relieved the patient's nausea. Droperidol. Response to treatment: the patient's symptoms have resolved after treatment, the patient's condition has returned to base line, the patient is now symptom free. Special discussion: Based on the patient's Hx, exam, and Dx evaluation, there is no indication for emergent surgery or inpatient Tx. It is understood by the patient/guardian that if the Sx's persist or worsen they need to return immediately for re-evaluation. I discussed with the patient/guardian in detail that at this point there is no indication for admission to the hospital. It is understood, however, that if the symptoms persist or worsen the patient needs to return immediately for re-evaluation. Based on the history and exam findings, there is no indication for further emergent testing or inpatient evaluation. I discussed with the patient/guardian the need to see the bus matron for further evaluation of the symptoms. ED course: Patient reports his symptoms have resolved and feeling much better. All labs printed and CT scan printed and given to patient to take with him to primary care doctor. Will give patient Zofran. Likely cannabinoid hyperemesis syndrome. All questions answered. Strict ER precautions given.. 04/30 16:43 Order name: CBC with Diff; Complete Time: : dr5 04/30 16:43 Order name: CMP; Complete Time: 17: dr5 04/30 16:43 Order name: Lipase; Complete Time: : dr5 04/30 17:28 Order name: CT Abd/Pelvis - IV Contrast Only; Complete Time: 18:45 dr5 04/30 16:43 Order name: EKG; Complete Time: 16:04/30 16:43 Order name: IV Saline Lock; Complete Time: 17:06 dr5 04/30 16:43 Order name: Labs collected and sent; Complete Time: : dr5 04/30 16:43 Order name: EKG - Nurse/Tech; Complete Time: : dr5 EC: Rate is 57 beats/min. Rhythm is regular. QRS [place] is Normal. [place] interval is normal at dr5 154 msec. QRS interval is normal at 100 msec. QT interval is normal at 422 msec. Clinical impression: Sinus bradycardia. Administered Medications: 17:11 Drug: NS 0.9% IV 1000 ml IV at 1 bolus Per protocol; to be given as a bolus over 60 af3 minutes Route: IV; Rate: 1 bolus; Site: right antecubital; 19:03 Follow up: IV Status: Completed infusion; IV Intake: 1000ml jb4 17:11 Drug: Droperidol IVP 1.25 mg IVP once Route: IVP; Site: right antecubital; af3 19:03 Follow up: Response: No adverse reaction; Pain is decreased; Nausea is decreased jb4 17:12 Drug: morphine IVP or IV 4 mg IVP once over 4 mins Route: IVP; Infused Over: 4 mins; af3 Site: right antecubital; 19:03 Follow up: Response: No adverse reaction; Pain is decreased; RASS: Alert and Calm (0) jb4 Disposition Summary: 04/30/25 18:53 Discharge Ordered Notes: Location: Home dr5 Condition: Stable dr5 Diagnosis - Nausea with vomiting, unspecified dr5 - Gastro-esophageal reflux disease without esophagitis dr5 Followup: dr5 - With: Emergency Department - When: As needed - Reason: Worsening of condition Followup: dr5 - With: Jason Armstrong MD - When: 1 - 2 days - Reason: Recheck today's complaints, Continuance of care, Re-evaluation by your physician Discharge Instructions: - Discharge Summary Sheet dr5 - Gastroesophageal Reflux Disease, Adult dr5 - Nausea and Vomiting, Adult dr5 Forms: - Medication Reconciliation Form dr5 - Patient Portal Instructions dr5 - Leadership Thank You Letter dr5 Prescriptions: - Zofran 4 mg Oral Tablet - take 1 tablet ORAL route every 12 hours As needed; 20 tablet; Refills: 0, dr5 Product Selection Permitted Signatures: Dispatcher [employer] Shannon Goyal RN RN af3 ANA CRISTINA GREEN RN RN dd2 Shar Myers, SECURITY SERGEANT-C SECURITY SERGEANT-Cdr5 Brayden Lacey RN jb4
--- NOTE | 2025-04-30 18:54 | ER ---
Nurse's Notes [facility] Name: Nacho Lopez Age: 24 yrs Sex: Male : 2000 Arrival Date: 04/30/2025 Time: 16:22 Bed 13 Private MD: Diagnosis: Nausea with vomiting, unspecified;Gastro-esophageal reflux disease without esophagitis Presentation: 04/30 16:31 Chief complaint: Patient states: HE STARTED VOMITING, DIARRHEA AND STOMACH PAINS ON dd2 TUESDAY AND TUESDAY, TUESDAY WENT AWAY AND TODAY IT CAME BACK AND NOTICED BLOOD IN HIS VOMIT. Coronavirus screen: At this time, the client does not indicate any symptoms associated with coronavirus-19. Ebola Screen: No symptoms or risks identified at this time. Initial Sepsis Screen: Does the patient meet any 2 criteria? No. Patient's initial sepsis screen is negative. Does the patient have a suspected source of infection? No. Patient's initial sepsis screen is negative. Risk Assessment: Do you want to hurt yourself or someone else? Patient reports no desire to harm self or others. Onset of symptoms was April 26, 2025. 16:31 Method Of Arrival: Ambulatory dd2 16:31 Acuity: KLAUS 3 dd2 Triage Assessment: 16:33 General: Appears in no apparent distress. uncomfortable, Behavior is calm, cooperative, dd2 appropriate for age. Pain: Complains of pain in epigastric area. GI: Abdomen is non-distended, Abd is soft X 4 quads Abdomen is tender to palpation in epigastric area Reports diarrhea, epigastric pain, indigestion, intolerance of fluids, intolerance of food, nausea, vomiting. Historical: - Allergies: 16:33 NKA; dd2 - PMHx: 16:33 GERD; dd2 - PSHx: 16:33 None; dd2 - Immunization history:: Adult Immunizations unknown. - Infectious Disease History:: Denies. - Social history:: Smoking status: Reported history of juuling and/or vaping. Screenin:38 [facility] ED Fall Risk Assessment (Adult) History of falling in the last 3 months, jb4 including since admission No falls in past 3 months (0 pts) Confusion or Disorientation No (0 pts) Intoxicated or Sedated No (0 pts) Impaired Gait No (0 pts) Mobility Assist Device Used No (0 pt) Altered Elimination No (0 pt) Score/Fall Risk Level 0 - 2 = Low Risk Oriented to surroundings, Maintained a safe environment. Abuse screen: Denies threats or abuse. Nutritional screening: No deficits noted. Tuberculosis screening: No symptoms or risk factors identified. Assessment: 16:43 General: Appears in no apparent distress. uncomfortable, well groomed, well developed, jb4 Behavior is calm, cooperative, appropriate for age. Pain: Complains of pain in epigastric area Pain currently is 10 out of 10 on a pain scale. Quality of pain is described as burning, crampy, Pain began 2-3 days ago. Neuro: Level of Consciousness is awake, alert, obeys commands, Oriented to person, place, time, situation, Appropriate for age. Cardiovascular: Patient's skin is warm and dry. Respiratory: Airway is patent Respiratory effort is even, unlabored, Respiratory pattern is regular, symmetrical. GI: Reports upper abdominal pain, diarrhea, nausea, vomiting. : No signs and/or symptoms were reported regarding the genitourinary system. EENT: No signs and/or symptoms were reported regarding the EENT system. Derm: Skin is intact, is healthy with good turgor, Skin is pink, warm \T\ dry. Musculoskeletal: Circulation, motion, and sensation intact. Range of motion: intact in all extremities. 17:38 Reassessment: Pt resting in bed eyes closed, respirations even and unlabored with no jb4 s/s of pain or distress noted. 18:42 Reassessment: Patient appears in no apparent distress at this time. Patient and/or jb4 family updated on plan of care and expected duration. Pain level reassessed. Patient is alert, oriented x 3, equal unlabored respirations, skin warm/dry/pink. Vital Signs: 16:31 BP 176 / 122; Pulse 65; Resp 17; Temp 98.5; Pulse Ox 100% ; Pain 10/10; dd2 16:43 BP 159 / 100; Pulse 61; Resp 17; Pulse Ox 100% ; jb4 17:52 BP 173 / 95; Pulse 56; Resp 16; Pulse Ox 100% on R/A; jb4 18:54 BP 161 / 97; Pulse 63; Resp 16; Pulse Ox 99% on R/A; jb4 16:31 Pain Scale: Adult dd2 ED Course: 16:23 Patient arrived in ED. cj3 16:24 Shar Myers FNP-C is [facility]. dr5 16:24 Amara Funez MD is Attending Physician. dr5 16:33 Triage completed. dd2 16:33 Arm band placed on right wrist. dd2 17:06 Inserted saline lock: 20 gauge in right antecubital area, using aseptic technique. ts3 Blood collected. Flushed with 10 mL NS. 17:06 Initial lab(s) drawn, by laboratory animal care veterinarian, sent to lab. ts3 17:06 EKG done, by clock repair technician. ts3 17:38 Patient has correct armband on for positive identification. Bed in low position. Call jb4 light in reach. Side rails up X 1. Provided Education on: plan of care. 17:38 No provider procedures requiring assistance completed. jb4 17:52 Brayden Lacey, RN is Primary Nurse. jb4 18:33 CT Abd/Pelvis - IV Contrast Only In Process Unspecified. EDMS 18:53 Jason Armstrong MD is Referral Physician. dr5 19:05 IV discontinued, intact, bleeding controlled, No redness/swelling at site. Pressure jb4 dressing applied. Administered Medications: 17:11 Drug: NS 0.9% IV 1000 ml IV at 1 bolus Per protocol; to be given as a bolus over 60 af3 minutes Route: IV; Rate: 1 bolus; Site: right antecubital; 19:03 Follow up: IV Status: Completed infusion; IV Intake: 1000ml jb4 17:11 Drug: Droperidol IVP 1.25 mg IVP once Route: IVP; Site: right antecubital; af3 19:03 Follow up: Response: No adverse reaction; Pain is decreased; Nausea is decreased jb4 17:12 Drug: morphine IVP or IV 4 mg IVP once over 4 mins Route: IVP; Infused Over: 4 mins; af3 Site: right antecubital; 19:03 Follow up: Response: No adverse reaction; Pain is decreased; RASS: Alert and Calm (0) jb4 Medication: 17:38 VIS not applicable for this client. jb4 Intake: 19:03 IV: 1000ml; Total: 1000ml. jb4 Outcome: 18:53 Discharge ordered by . dr5 19:04 Discharged to home ambulatory, jb4 19:04 Condition: stable 19:04 Discharge instructions given to patient, Instructed on discharge instructions, follow up and referral plans. medication usage, Demonstrated understanding of instructions, follow-up care, medications, Prescriptions given X 1, 19:06 Patient left the ED. jb4 Signatures: Dispatcher [employer] EDMS Brayden Lacey RN RN jb4 Shannon Rod RN RN af3 ANA CRISTINA GREEN RN RN dd2 Shar Myers, SUPERVISOR WET ROOM-C SUPERVISOR WET ROOM-5 Queenie Martin 3 Mary [place] 3 Corrections: (The following items were deleted from the chart) 19:05 19:05 GI: jbShoaib jb4
[2025-04-30 22:43] VITALS: TEMP 98.5
[2025-04-30 22:48] VITALS: BP 161/97; O2SAT 99
== END 2025-04-30 19:06 | disposition home or self-care (01) ==
LOC: ER 16:22
DX: K21.9 Gastro-esophageal reflux disease without esophagitis (principal)
CPT/HCPCS: 36415; 74177; 80053; 83690; 85025; 93005; 96361; 96374; 96375; 99284; J1790; J7030; Q9967